=== PATIENT | female | born 1940 | race Caucasian/White ===

== ENCOUNTER 2018-11-28 16:54 | Inpatient (IN) ==
--- NOTE | 2018-11-28 17:51 | ED ---
HPI General Chief complaint: Weakness Stated complaint: Weakness Time Seen by Provider: 11/28/18 16:56 Source: patient, family, EMS and RN notes reviewed Mode of arrival: EMS Limitations: altered mental status History of Present Illness HPI Narrative: 78 year old female presents to the ED via [facility] for c/o malaise and fatigue that started last night. She is in a facility for rehab after a femur and ulnar fracture since 07/2018. She only began ambulating minimally recently. She states she has been falling asleep during conversations and this morning she was given her morning medications and fell asleep with them in her hand. She denies chest pain, abdominal pain or SOB. Denies recent illness. Admits that she felt similar last time she had a UTI. She states she has two bed sores on her buttock. Admits to intermittent sweats and chills. Patient was at the rehab secondary to a fracture that they did not do surgery on. Unclear as to why. She does take blood thinners and has a history of atrial fibrillation. Apparently just recently became more ambulatory She denies any urinary issues but she does have a history of ulcers to her buttocks. She apparently is being worked up for this in the facility. Patient denies any pain. Daughter is at bedside and she provides most of the information. Patient herself is able to provide information but not as well. She does appear to give her eyes closed and appears to be slightly lethargic. Related Data Home Medications Medication Instructions Recorded Confirmed apixaban [Eliquis] 5 mg PO BID 08/09/18 11/28/18 cholecalciferol (vitamin D3) 2,000 unit PO DAILY 08/09/18 11/28/18 [Vitamin D3] doxazosin 4 mg PO BID 08/09/18 11/28/18 folic acid 1 mg PO DAILY 08/09/18 11/28/18 furosemide [Lasix] 20 mg PO DAILY 08/09/18 11/28/18 labetalol 100 mg PO TID 08/09/18 11/28/18 methotrexate sodium 50 mg SUBCUT QWEEK 08/09/18 11/28/18 pantoprazole [Protonix] 40 mg PO DAILY 08/09/18 11/28/18 prednisone 5 mg PO DAILY 08/09/18 11/28/18 rosuvastatin [Crestor] 5 mg PO Q3D 08/09/18 11/28/18 spironolactone [Aldactone] 25 mg PO BID 08/09/18 11/28/18 propafenone 225 mg PO Q8HR 08/12/18 11/28/18 Saccharomyces boulardii 250 mg PO BID 11/28/18 11/28/18 alprazolam [Xanax] 0.5 mg PO HS 11/28/18 11/28/18 baclofen 20 mg PO BID 11/28/18 11/28/18 cyanocobalamin (vitamin B-12) 1,000 mcg IM QMONTH 11/28/18 11/28/18 gabapentin 100 mg PO BID 11/28/18 11/28/18 magnesium hydroxide [Milk of 30 ml PO DAILY PRN 11/28/18 11/28/18 Magnesia] morphine [MS Contin] 15 mg PO Q12H 11/28/18 11/28/18 multivitamin with minerals 1 tab PO DAILY 11/28/18 11/28/18 oxycodone-acetaminophen [Percocet] 1 tab PO TID PRN 11/28/18 11/28/18 pregabalin [Lyrica] 75 mg PO HS 11/28/18 11/28/18 promethazine 12.5 mg PO DAILY PRN 11/28/18 11/28/18 vitamin B complex 1 cap PO DAILY 11/28/18 11/28/18 Allergies Allergy/AdvReac Type Severity Reaction Status Date / Time metoclopramide Allergy Severe Cramping Verified 08/10/18 07:55 of the Muscles penicillin G Allergy Severe Swelling Verified 08/10/18 07:55 tetanus toxoid, adsorbed Allergy Severe Cramping Verified 08/10/18 07:55 of the Muscles cefazolin Allergy Mild ALLERGY Verified 08/10/18 07:55 DOCUMENTED ON 05-07-09 ORDER @ 0030 sucralfate Allergy Unknown Abdominal Verified 08/10/18 07:55 Pain Review of Systems ROS: all other systems reviewed are negative PMFSH History History Provided By: Patient, Family 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, 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 Medical History Medical History Chronic pain (Acute) Hypertension (Acute) Atrial fibrillation (Acute) Chronic kidney disease (Acute) Hyperlipidemia (Acute) Muscle weakness (Acute) Olecranon fracture (Acute) Arthritis (Acute) Gastroparesis (Acute) Hx of hysterectomy (Acute) Surgical History Surgical History History of tonsillectomy (Acute) History of back surgery (Acute) History of cardiac radiofrequency ablation (Acute) Hx of cholecystectomy (Acute) Family History Family History Other Family history non-contributory Social History Social History Substance History: No History of Abuse Second Hand Smoke Exposure: No Smoking Status: Never smoker How Often Do You Have a Drink Containing Alcohol: Never Recent Travel in [facility] within the Last 8 Weeks: No Recent Out of Country Travel within the Last 8 Weeks: No Exam Narrative Exam Narrative: GENERAL: Well-appearing in no distress. SKIN: Focused skin assessment warm/dry. 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 She has about 3 lesions. Bigger one is about 4-5 cm. Less than 5 mms deep. HEAD: Atraumatic. Normocephalic. EYES: Pupils equal and round. No scleral icterus. No injection or drainage. ENT: No nasal bleeding or discharge. Mucous membranes pink and moist. Tongue is midline. No uvula deviation. NECK: Trachea midline. No JVD. CARDIOVASCULAR: Regular rate and rhythm. No murmur appreciated. RESPIRATORY: No accessory muscle use. Clear to auscultation. Breath sounds equal bilaterally. GASTROINTESTINAL: Abdomen soft, non-tender, nondistended. Hepatic and splenic margins not palpable. MUSCULOSKELETAL: No obvious deformities. No clubbing. No cyanosis. No edema. Full range of motion of the upper and lower extremities with exception of the lower extremities but she does have some weakness. NEUROLOGICAL: Awake and alert. No obvious cranial nerve deficits. Motor grossly within normal limits. Normal speech. PSYCHIATRIC: Appropriate mood and affect; insight and judgment normal. Course Initial Documented Vital Signs Temperature 99.0 F 11/28/18 17:11 Pulse Rate 73 11/28/18 17:11 Respiratory Rate 17 11/28/18 17:11 Blood Pressure 97/57 L 11/28/18 17:11 Pulse Oximetry 97 11/28/18 17:11 Last Documented Vital Signs Temperature 99.0 F 11/28/18 17:11 Pulse Rate 88 11/28/18 20:43 Respiratory Rate 15 11/28/18 20:43 Blood Pressure 103/58 L 11/28/18 20:43 Pulse Oximetry 97 11/28/18 21:28 Medical Decision Making AGNIESZKA Attestation AGNIESZKA supervised visit: Yes Attestation: I, Dr. Villar, have reviewed the advance practice practitioner' s documentation and am in agreement, met with the patient face to face, made the diagnosis, and the medical decision making was done by me. *My assessment and Findings: 78-year-old female presents for evaluation of altered mental status. Patient hypotensive on arrival raising concern for sepsis. Laboratory work shows acute renal failure with a creatinine of 1.6. Urinalysis unremarkable. CT head negative for acute findings. Chest x-ray does show a left lower lobe infiltrate. Patient treated for healthcare associated pneumonia as she is currently at inpatient rehab. Patient with allergies to cephalosporins and penicillin. Will treat with Levaquin and aztreonam. Will admit patient to medicine. MDM Narrative Medical decision making narrative: This will cover for hospital-acquired pneumonia.78-year-old female that presents to the ED for evaluation of altered mental status. Patient was properly examined and was found to have signs and symptoms consistent with altered mental status likely from infection. Labs and imaging were ordered. Labs and imaging did showed what appears to be pneumonia as well as appears to be NAVIN. At this time recognitions for admission for further evaluation and treatment. Case discussed with my attending her mother the patient agrees with plan. Patient was given fluids as well as Levaquin and tazobactam as patient is allergic to cephalosporins and penicillin. Patient and family agree with plan. Patient was admitted to the hospital to Dr. Bowden agrees to admission to his service. Medical Screen Exam Complete: Yes Emergency Medical Condition: Yes Differential Diagnosis Differential Diagnosis: Pneumonia versus sepsis versus UTI versus weakness versus CVA versus ACS versus lethargy versus AMS 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s Medical records reviewed: Yes I reviewed the patient's medical records. Lab Data Lab results reviewed: Yes I reviewed the patient's lab results. Result diagrams: 11/28/18 18:46 11/28/18 18:49 Lab Results 11/28/18 11/28/18 11/28/18 Range/Units 18:45 18:45 18:46 WBC 4.3 (4.0-11.0) th/mm3 RBC 2.97 L (4.00-5.30) mil/mm3 Hgb 9.7 L (11.6-15.3) gm/dL Hct 30.2 L (35.0-46.0) % MCV 101.6 H (80.0-100.0) fL MCH 32.8 (27.0-34.0) pg MCHC 32.3 (32.0-36.0) % RDW 22.1 H (11.6-17.2) % Plt Count 247 (150-450) th/mm3 MPV 7.3 (7.0-11.0) fL Neut % (Auto) 92.7 H (16.0-70.0) % Lymph % (Auto) 4.9 L (9.0-44.0) % [place] % (Auto) 1.9 (0.0-8.0) % Eos % (Auto) 0.1 (0.0-4.0) % Baso % (Auto) 0.4 (0.0-2.0) % Neut # (Auto) 4.0 (1.8-7.7) th/mm3 Lymph # (Auto) 0.2 L (1.0-4.8) th/mm3 Marin # (Auto) 0.1 (0.0-0.9) th/mm3 Eos # (Auto) 0.0 (0.0-0.4) th/mm3 Baso # (Auto) 0.0 (0.0-0.2) th/mm3 WBC Differential . Differential Comment Auto diff final PT (9.8-11.6) sec INR Ratio Sodium (136-145) meq/L Potassium (3.5-5.1) meq/L Chloride (98-107) meq/L Carbon Dioxide (21.0-32.0) meq/L Anion Gap (5-15) meq/L BUN (7-18) mg/dL Creatinine (0.50-1.00) mg/dL Estimated GFR (>89) mL/min Random Glucose (74-106) mg/dL Lactic Acid 2.0 (0.4-2.0) mmol/L Calcium (8.5-10.1) mg/dL Magnesium (1.5-2.5) mg/dL Total Bilirubin (0.2-1.0) mg/dL AST (15-37) U/L ALT (10-53) U/L Alkaline Phosphatase (45-117) U/L Total Creatine Kinase (26-192) U/L Troponin I (0.02-0.05) ng/mL Total Protein (6.4-8.2) g/dL Albumin (3.4-5.0) g/dL TSH (0.358-3.740) uIU/mL Urine Color Belén (Yellw/Straw) Urine Clarity Hazy H (Clear) Urine pH 5.0 (5.0-8.5) Ur Specific [place] 1.015 (1.002-1.035) Urine Protein Negative (Neg-Trace) mg/dL Urine Glucose (UA) Negative (Negative) mg/dL Urine Ketones Negative (Negative) mg/dL Urine Occult Blood Negative (Negative) Urine Nitrate Negative (Negative) Urine Bilirubin Negative (Negative) Urine Urobilinogen Less than 2 (Less than 2) mg/dL Ur Leukocyte Esterase Negative (Negative) Urine RBC 3 (0-3) /hpf Urine WBC 2 (0-5) /hpf Ur Squamous Epith Cells <1 (0-5) /hpf Hyaline Casts 14 (0-3) /lpf Urine Mucus Few H (Occasional) /lpf Micro UA Comment Culture not ind Ur Microscopic Review Not Reportable Urine Culture Comments Culture not ind Stl C.difficile DNA Amp (Negative) St C. diff Tox Epid 027 (Negative) 11/28/18 11/28/18 11/28/18 Range/Units 18:46 18:49 18:50 WBC (4.0-11.0) th/mm3 RBC (4.00-5.30) mil/mm3 Hgb (11.6-15.3) gm/dL Hct (35.0-46.0) % MCV (80.0-100.0) fL MCH (27.0-34.0) pg MCHC (32.0-36.0) % RDW (11.6-17.2) % Plt Count (150-450) th/mm3 MPV (7.0-11.0) fL Neut % (Auto) (16.0-70.0) % Lymph % (Auto) (9.0-44.0) % [place] % (Auto) (0.0-8.0) % Eos % (Auto) (0.0-4.0) % Baso % (Auto) (0.0-2.0) % Neut # (Auto) (1.8-7.7) th/mm3 Lymph # (Auto) (1.0-4.8) th/mm3 [place] # (Auto) (0.0-0.9) th/mm3 Eos # (Auto) (0.0-0.4) th/mm3 Baso # (Auto) (0.0-0.2) th/mm3 WBC Differential Differential Comment PT 14.0 H (9.8-11.6) sec INR 1.4 Ratio Sodium 137 (136-145) meq/L Potassium 5.0 (3.5-5.1) meq/L Chloride 105 (98-107) meq/L Carbon Dioxide 24.2 (21.0-32.0) meq/L Anion Gap 8 (5-15) meq/L BUN 37 H (7-18) mg/dL Creatinine 1.65 H (0.50-1.00) mg/dL Estimated GFR 30 L (>89) mL/min Random Glucose 105 (74-106) mg/dL Lactic Acid (0.4-2.0) mmol/L Calcium 8.0 L (8.5-10.1) mg/dL Magnesium 2.3 (1.5-2.5) mg/dL Total Bilirubin 0.5 (0.2-1.0) mg/dL AST 14 L (15-37) U/L ALT 14 (10-53) U/L Alkaline Phosphatase 73 (45-117) U/L Total Creatine Kinase 154 (26-192) U/L Troponin I Less than 0.02 L (0.02-0.05) ng/mL Total Protein 6.1 L (6.4-8.2) g/dL Albumin 2.5 L (3.4-5.0) g/dL TSH 0.794 (0.358-3.740) uIU/mL Urine Color (Yellw/Straw) Urine Clarity (Clear) Urine pH (5.0-8.5) Ur Specific [place] (1.002-1.035) Urine Protein (Neg-Trace) mg/dL Urine Glucose (UA) (Negative) mg/dL Urine Ketones (Negative) mg/dL Urine Occult Blood (Negative) Urine Nitrate (Negative) Urine Bilirubin (Negative) Urine Urobilinogen (Less than 2) mg/dL Ur Leukocyte Esterase (Negative) Urine RBC (0-3) /hpf Urine WBC (0-5) /hpf Ur Squamous Epith Cells (0-5) /hpf Hyaline Casts (0-3) /lpf Urine Mucus (Occasional) /lpf Micro UA Comment Ur Microscopic Review Urine Culture Comments Stl C.difficile DNA Amp Positive H (Negative) St C. diff Tox Epid 027 Positive H (Negative) Imaging Data Attestation: I personally reviewed and interpreted this imaging study as follows : Radiologist's impression: Chest X-Ray 11/28/18 17:21 CONCLUSION: Subsegmental infiltrate in the left lower lung. Head CT 11/28/18 17:30 CONCLUSION: 1. No acute findings in the brain. 2. Opacification or fluid in the sphenoid sinus. . Discharge Plan Discharge Disposition Patient Disposition: ED Admit(ED Internal Use Only) Discharge Order Discharge Orders: ED Use Only Admit Order (Routine); Ordered 11/28/18 Ordered By: Randy Bernabe Discharge Details Diagnosis: Acute alteration in mental status, NAVIN (acute kidney injury), Pneumonia Physicians Team ED Provider: Johanna Villar ED Midlevel Provider: Randy Bernabe Primary Care Provider: UNKNOWN, Attending Provider: Cliff Rodriguez Status ED Status: Left Department Discharge Information Discharge Date/Time: 11/28/18 21:58
--- NOTE | 2018-11-28 17:51 | XR ---
EXAM DATE: 11/28/2018 5:42 PM EST AGE/SEX: 78 years / Female INDICATIONS: Shortness of breath and weakness. CLINICAL DATA: This is the patient's initial encounter. Patient reports that signs and symptoms have been present for 2 days and indicates a pain score of 0/10. MEDICAL/SURGICAL HISTORY: . Arthritis. Gastroparesis. Hypertension. A-fib. . Hysterectomy. Fus ion, lumbar. Cholecystectomy. Cardiac ablation. COMPARISON: [facility] – [place], [place]ST 1V SINGLE AP, 08/10/2018. . FINDINGS: There is a subsegmental oblique opacity in the lower lateral left lung. The right lung is clear. The heart is normal in size. Both hemidiaphragms well delineated. Multiple calcified nodes in the right a xilla stable from prior. CONCLUSION: Subsegmental infiltrate in the left lower lung. Electronically signed by: Jesus Manuel Samaniego MD Board Certified Radiologist 11/28/2018 5:49 PM EST
--- NOTE | 2018-11-28 17:58 | CT ---
EXAM DATE: 11/28/2018 5:46 PM EST AGE/SEX: 78 years / Female INDICATIONS: Weakness and altered mental status. CLINICAL DATA: This is the patient's initial encounter. Patient reports that signs and symptoms have been present for 1 day and indicates a pain score of 0/10. MEDICAL/SURGICAL HISTORY: Hypertension. Afib, Chronic kidney disease. Hysterectomy. RADIATION DOSE: 34.63 CTDI (mGy) COMPARISON: [facility], MR BRAIN W AND W/O CONTRAST, 06/14/2018. . TECHNIQUE: CT of the head without contrast. Using automated exposure control and adjustment of the mA and/or kV according to patient size, radiation dose was kept as low as reasonably achievable to ob tain optimal diagnostic quality images. DICOM format image data is available electronically for revi ew and comparison. FINDINGS: Cerebrum: The ventricles are normal for age. No evidence of midline shift, mass lesion, hemorrhage or acute infarction. No extraaxial fluid collections are seen. Posterior Fossa: The cerebellum and brainstem are intact. The 4th ventricle is midline. The cerebe llopontine angle is unremarkable. Extracranial: The visualized portion of the orbits is intact. Opacified or air-fluid level in the sp henoid sinus Skull: The calvaria is intact. No evidence of skull fracture. CONCLUSION: 1. No acute findings in the brain. 2. Opacification or fluid in the sphenoid sinus. . Electronically signed by: Jesus Manuel Samaniego MD Board Certified Radiologist 11/28/2018 5:56 PM EST
[2018-11-28] MEDS ORDERED: Sodium Chlor 0.9% Inj 500 ML IV.SIG SCH ×2 (18:00)
[2018-11-28 19:11] LABS: Baso % (Auto) 0.4 % (0.0-2.0); Eos % (Auto) 0.1 % (0.0-4.0); Hematocrit 30.2 % (35.0-46.0); Hemoglobin 9.7 gm/dL (11.6-15.3); Lymph # (Auto) 0.2 th/mm3 (1.0-4.8); Lymph % (Auto) 4.9 % (9.0-44.0); Mean Corpuscular HGB Conc 32.3 % (32.0-36.0); Mean Corpuscular Hemoglobin 32.8 pg (27.0-34.0); Mean Corpuscular Volume 101.6 fL (80.0-100.0); Mean Platelet Volume 7.3 fL (7.0-11.0); Mono # (Auto) 0.1 th/mm3 (0.0-0.9); Mono % (Auto) 1.9 % (0.0-8.0); Neut % (Auto) 92.7 % (16.0-70.0); Platelet Count 247 th/mm3 (150-450); Red Blood Count 2.97 mil/mm3 (4.00-5.30); Red Cell Distribution Width 22.1 % (11.6-17.2); White Blood Count 4.3 th/mm3 (4.0-11.0)
[2018-11-28 19:14] LABS: Bilirubin,Urine Negative (Negative); Clarity,Urine Hazy (Clear); Color,Urine Amber (Yellw/Straw); Glucose,Urine (UA) Negative (Negative); Hyaline Casts,Urine 14 /lpf (0-3); Leukocyte Esterase,Urine Negative (Negative); Mucus,Urine Few /lpf (Occasional); Nitrite,Urine Negative (Negative); Specific Gravity,Urine 1.015 (1.002-1.035); Squamous Epithelial Cell,Urine <1 /hpf (0-5)
[2018-11-28 19:15] LABS: INR 1.4 Ratio
[2018-11-28 19:47] LABS: Alanine Aminotransferase 14 U/L (10-53); Albumin 2.5 g/dL (3.4-5.0); Anion Gap 8 meq/L (5-15); Aspartate Aminotransferase 14 U/L (15-37); Blood Urea Nitrogen 37 mg/dL (7-18); Carbon Dioxide 24.2 meq/L (21.0-32.0); Chloride 105 meq/L (98-107); Glomerular Filtration Rate 30 mL/min (>89); Glucose,Random 105 mg/dL (74-106); Magnesium 2.3 mg/dL (1.5-2.5); Sodium 137 meq/L (136-145)
[2018-11-28] MEDS ORDERED: Aztreonam Inj 2 GM in Sodium Chloride 0.9% Inj 100 ML IV.SIG STA (19:47)
--- NOTE | 2018-11-28 19:51 | P.HP ---
History of Present Illness Service: [facility] Adult med Primary Care Physician: UNKNOWN Chief Complaint: AMS, malaise History of Present Illness: 78 year old female presents to the ED via [facility] for c/o malaise and fatigue that started last night. She has been residing in a nursing facility for rehab after a femur and ulnar fracture since 07/2018. She only began ambulating minimally recently. She states she has been falling asleep during conversations and this morning she was given her morning medications and fell asleep with them in her hand. Her daughter who is at bedside reports that patient's blood pressure was quite low at the facility, reported as 82/57 earlier today. Patient's roommate has been coughing a lot but the patient has not been coughing. Patient is not been eating much over the last 2 days. She has had no vomiting. Denies any diarrhea but did have one episode of loose stool while here in the ER tonight. She denies chest pain, abdominal pain or SOB. Admits that she felt similar last time she had a UTI. She states she has two bed sores on her buttock and wound care at the facility was reportedly consulted within the last day or so. Admits to intermittent sweats and chills today. She has been given IV fluids and IV antibiotics have been initiated here due to concerns for possible sepsis as chest x-ray revealed pneumonia and the patient's blood pressure was systolically in the 90s. Her systolic blood pressure on my exam was 101 with a heart rate in the 80s. Patient reports she is feeling better and stronger now. Patient is much more responsive now per her own report and per her daughter's report. - Diagnosis (1) Pneumonia (2) Acute alteration in mental status (3) NAVIN (acute kidney injury) (4) Anemia (5) Pressure ulcer (6) Hypertension (7) Atrial fibrillation Review of Systems Constitutional: Reports anorexia, Reports daytime sleepiness, Reports fatigue, Reports lack of energy, Reports malaise, Reports weakness, Denies body ache(s), Denies chills, Denies excessive sweating, Denies fever(s), Denies headache(s), Denies increased appetite, Denies night sweats, Denies weight gain, Denies weight loss, Denies other Eyes: Denies blind spots, Denies blurry vision, Denies bulging eyes, Denies change in vision, Denies double vision, Denies discharge, Denies dry eyes, Denies floaters, Denies irritation, Denies itchy eyes, Denies loss of vision, Denies pain, Denies requires corrective lenses, Denies sensitivity to light, Denies other Ears, Nose, Mouth, and Throat: Reports abnormal hearing Cardiovascular: Denies chest pain, Denies chest pain at rest, Denies chest pain with activity, Denies excessive sweating, Denies fainting, Denies fast heart rate, Denies foot swelling, Denies generalized swelling, Denies irregular heart rhythm, Denies leg pain with activity, Denies leg sores, Denies leg swelling, Denies lightheadedness, Denies radiating jaw, neck or arm pain, Denies rapid, pounding, or irregular heartbeat, Denies shortness of breath, Denies shortness of breath with activity, Denies shortness of breath when lying down, Denies shortness of breath causing sudden awakening, Denies slow heart rate, Denies other Respiratory: Denies change in phlegm color, Denies chest congestion, Denies cough, Denies coughing up blood, Denies excessive phlegm production, Denies pain on inspiration, Denies pain with cough, Denies shortness of breath, Denies shortness of breath with activity, Denies snoring, Denies stridor, Denies wheezing, Denies other Gastrointestinal: Denies abdominal pain, Denies belching, Denies black, tarry stools, Denies bloating, Denies bright, red blood in stools, Denies change in bowel habits, Denies constant urge to pass stool, Denies change in stools, Denies coffee ground vomit, Denies constipation, Denies cramping, Denies difficulty swallowing, Denies excessive passing of gas, Denies feeling full early, Denies heartburn, Denies incontinent of stools, Denies loose stools, Denies nausea, Denies pain with swallowing, Denies vomiting, Denies vomiting blood, Denies other Musculoskeletal: Reports abnormal walking, Reports joint pain Skin/Breast: Reports change in skin color, Reports rash, Reports wounds Neurologic: Reports abnormal hearing, Reports dizziness, Reports unsteadiness, Reports weakness Psychiatric: Reports abnormal sleep pattern Hematologic/Lymphatic: Reports easy bruising PMFSH - History History Provided By: 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, Airfield Manager / EMT - Medical History Medical History: Medical History (Last Updated 11/28/18 @ 20:43 by Dereje Bowden MD, PhD) Chronic pain (Acute) Hypertension (Acute) Atrial fibrillation (Acute) Chronic kidney disease Hyperlipidemia Muscle weakness Olecranon fracture Arthritis Gastroparesis Hx of hysterectomy - Surgical History Surgical History: Surgical History (Last Updated 11/28/18 @ 20:39 by Dereje Bowden MD, PhD) History of tonsillectomy History of back surgery History of cardiac radiofrequency ablation Hx of cholecystectomy - Family History Family History: Family History (Last Reviewed 11/28/18 @ 19:52 by BECCA Mina) Other Family history non-contributory - Social History I have reviewed the patient's Social History: Yes - Tobacco History Second Hand Smoke Exposure: No Smoking Status: Never smoker - Alcohol History How Often Do You Have a Drink Containing Alcohol: Never - Substance Use History Substance History: No History of Abuse - Travel History Recent Travel in the [place] Within the Last 8 Weeks: No Recent Travel Out of the Country Within the Last 8 Weeks: No - Immunization History Tetanus Immunization: <5 Years Medications and Allergies Active Medications: Active Medications Aztreonam 2 gm/ Sodium (Chloride) 100 mls @ 200 mls/hr IV.SIG STAT STA Stop: 11/28/18 20:16 Levofloxacin/Dextrose (Levaquin 750 Mg Premix Inj) 150 mls @ 100 mls/hr IV.SIG STAT STA Stop: 11/28/18 21:16 Allergies Allergy/AdvReac Type Severity Reaction Status Date / Time metoclopramide Allergy Severe Cramping Verified 08/10/18 07:55 of the Muscles penicillin G Allergy Severe Swelling Verified 08/10/18 07:55 tetanus toxoid, adsorbed Allergy Severe Cramping Verified 08/10/18 07:55 of the Muscles cefazolin Allergy Mild ALLERGY Verified 08/10/18 07:55 DOCUMENTED ON 05-07-09 ORDER @ 0030 sucralfate Allergy Unknown Abdominal Verified 08/10/18 07:55 Pain Home Medications Medication Instructions Recorded Confirmed Type apixaban [Eliquis] 5 mg PO BID 08/09/18 11/28/18 History cholecalciferol (vitamin D3) 2,000 unit PO DAILY 08/09/18 11/28/18 History [Vitamin D3] doxazosin 4 mg PO BID 08/09/18 11/28/18 History folic acid 1 mg PO DAILY 08/09/18 11/28/18 History furosemide [Lasix] 20 mg PO DAILY 08/09/18 11/28/18 History labetalol 100 mg PO TID 08/09/18 11/28/18 History methotrexate sodium 50 mg SUBCUT QWEEK 08/09/18 11/28/18 History pantoprazole [Protonix] 40 mg PO DAILY 08/09/18 11/28/18 History prednisone 5 mg PO DAILY 08/09/18 11/28/18 History rosuvastatin [Crestor] 5 mg PO Q3D 08/09/18 11/28/18 History spironolactone [Aldactone] 25 mg PO BID 08/09/18 11/28/18 History propafenone 225 mg PO Q8HR 08/12/18 11/28/18 History Saccharomyces boulardii 250 mg PO BID 11/28/18 11/28/18 History alprazolam [Xanax] 0.5 mg PO HS 11/28/18 11/28/18 History baclofen 20 mg PO BID 11/28/18 11/28/18 History cyanocobalamin (vitamin B-12) 1,000 mcg IM QMONTH 11/28/18 11/28/18 History gabapentin 100 mg PO BID 11/28/18 11/28/18 History magnesium hydroxide [Milk of 30 ml PO DAILY PRN 11/28/18 11/28/18 History Magnesia] morphine [MS Contin] 15 mg PO Q12H 11/28/18 11/28/18 History multivitamin with minerals 1 tab PO DAILY 11/28/18 11/28/18 History oxycodone-acetaminophen [Percocet] 1 tab PO TID PRN 11/28/18 11/28/18 History pregabalin [Lyrica] 75 mg PO HS 11/28/18 11/28/18 History promethazine 12.5 mg PO DAILY PRN 11/28/18 11/28/18 History vitamin B complex 1 cap PO DAILY 11/28/18 11/28/18 History Exam Vital signs: Vital Signs 11/28/18 17:11 11/28/18 17:21 Temperature 99.0 F Pulse Rate 73 73 Respiratory Rate 17 Blood Pressure 97/57 L Pulse Oximetry 97 97 Intake & Output 11/28/18 11/28/18 11/29/18 06:59 18:59 06:59 Weight 127.006 kg Narrative: GENERAL: No acute distress, sleeping, arouses to voice. Alert and oriented. Cooperative with exam. SKIN: Warm and dry. Stage II ulcerations bilateral buttocks approximately 3 lesions per discussion with PA provider. Small pustular lesion right forearm approximately 8 mm HEAD: Atraumatic. Normocephalic. EYES: Pupils equal and round. No scleral icterus. No injection or drainage. ENT: No nasal bleeding or discharge. Mucous membranes pink and moist. NECK: Trachea midline. No JVD. CARDIOVASCULAR: Regular rate and rhythm. Distant heart sounds. No significant murmur appreciated. RESPIRATORY: No accessory muscle use. Clear to auscultation. Breath sounds equal bilaterally, but decreased at the bases. GASTROINTESTINAL: Abdomen soft, non-tender, mildly distended. Hepatic and splenic margins not palpable. Bowel sounds normal. MUSCULOSKELETAL: Extremities without clubbing, cyanosis, or edema. No obvious deformities. NEUROLOGICAL: Awake and alert. No obvious cranial nerve deficits. Motor grossly within normal limits. Five out of 5 muscle strength in the arms and legs. Normal speech. PSYCHIATRIC: Appropriate mood and affect; insight and judgment normal. Results - Labs CBC & Chem 7: 11/28/18 18:46 11/28/18 18:49 Labs: Laboratory Results - last 24 hr 11/28/18 11/28/18 11/28/18 18:45 18:45 18:46 WBC 4.3 RBC 2.97 L Hgb 9.7 L Hct 30.2 L MCV 101.6 H MCH 32.8 MCHC 32.3 RDW 22.1 H Plt Count 247 MPV 7.3 Neut % (Auto) 92.7 H Lymph % (Auto) 4.9 L [place] % (Auto) 1.9 Eos % (Auto) 0.1 Baso % (Auto) 0.4 Neut # (Auto) 4.0 Lymph # (Auto) 0.2 L [place] # (Auto) 0.1 Eos # (Auto) 0.0 Baso # (Auto) 0.0 WBC Differential . Differential Comment Auto diff final PT INR Sodium Potassium Chloride Carbon Dioxide Anion Gap BUN Creatinine Estimated GFR Random Glucose Lactic Acid 2.0 Calcium Magnesium AST ALT Albumin Urine Color Belén Urine Clarity Hazy H Urine pH 5.0 Ur Specific [place] 1.015 Urine Protein Negative Urine Glucose (UA) Negative Urine Ketones Negative Urine Occult Blood Negative Urine Nitrate Negative Urine Bilirubin Negative Urine Urobilinogen Less than 2 Ur Leukocyte Esterase Negative Urine RBC 3 Urine WBC 2 Ur Squamous Epith Cells <1 Hyaline Casts 14 Urine Mucus Few H Micro UA Comment Culture not ind Ur Microscopic Review Not Reportable Urine Culture Comments Culture not ind 11/28/18 11/28/18 18:46 18:49 WBC RBC Hgb Hct MCV MCH MCHC RDW Plt Count MPV Neut % (Auto) Lymph % (Auto) [place] % (Auto) Eos % (Auto) Baso % (Auto) Neut # (Auto) Lymph # (Auto) [place] # (Auto) Eos # (Auto) Baso # (Auto) WBC Differential Differential Comment PT 14.0 H INR 1.4 Sodium 137 Potassium 5.0 Chloride 105 Carbon Dioxide 24.2 Anion Gap 8 BUN 37 H Creatinine 1.65 H Estimated GFR 30 L Random Glucose 105 Lactic Acid Calcium 8.0 L Magnesium 2.3 AST 14 L ALT 14 Albumin 2.5 L Urine Color Urine Clarity Urine pH Ur Specific [place] Urine Protein Urine Glucose (UA) Urine Ketones Urine Occult Blood Urine Nitrate Urine Bilirubin Urine Urobilinogen Ur Leukocyte Esterase Urine RBC Urine WBC Ur Squamous Epith Cells Hyaline Casts Urine Mucus Micro UA Comment Ur Microscopic Review Urine Culture Comments - Imaging Impressions Chest X-Ray 11/28/18 17:21 CONCLUSION: Subsegmental infiltrate in the left lower lung. Head CT 11/28/18 17:30 CONCLUSION: 1. No acute findings in the brain. 2. Opacification or fluid in the sphenoid sinus. . Caprini VTE Risk Assessment Caprini VTE Risk Assessment: Moderate/High Risk (score >= 2) Caprini Risk Assessment Model: Point Value = 1 Point Value = 2 Point Value = 3 Point Value = 5 Age 41-60 Minor surgery BMI > 25 kg/m2 Swollen legs Varicose veins or History of unexplained or recurrent spontaneous Oral contraceptives or hormone replacement Sepsis (< 1 month) Serious lung disease, including pneumonia (< 1 month) Abnormal pulmonary function Acute myocardial infarction Congestive heart failure (< 1 month) History of inflammatory bowel disease Medical patient at bed rest Age 61-74 Arthroscopic surgery Major open surgery (> 45 min) Laparoscopic surgery (> 45 min) Malignancy Confined to bed (> 72 hours) Immobilizing plaster cast Central venous access Age >= 75 History of VTE Family history of VTE Factor V Leiden Prothrombin [id number] Lupus anticoagulant Anticardiolipin antibodies Elevated serum homocysteine Heparin-induced thrombocytopenia Other congenital or acquired thrombophilia Stroke (< 1 month) Elective arthroplasty Hip, pelvis, or leg fracture Acute spinal cord injury (< 1 month) Prophylaxis Regimen: Total Risk Factor Score Risk Level Prophylaxis Regimen 0-1 Low Early ambulation 2 Moderate Order ONE of the following: *Sequential Compression Device (SCD) *Heparin 5000 units SQ BID 3-4 Higher Order ONE of the following medications: *Heparin 5000 units SQ TID *Enoxaparin/Lovenox 40 mg SQ daily (WT < 150 kg, CrCl > 30 mL/min) *Enoxaparin/Lovenox 30 mg SQ daily (WT < 150 kg, CrCl > 10-29 mL/min) *Enoxaparin/Lovenox 30 mg SQ BID (WT < 150 kg, CrCl > 30 mL/min) AND/OR *Sequential Compression Device (SCD) 5 or more Highest Order ONE of the following medications: *Heparin 5000 units SQ TID (Preferred with Epidurals) *Enoxaparin/Lovenox 40 mg SQ daily (WT < 150 kg, CrCl > 30 mL/min) *Enoxaparin/Lovenox 30 mg SQ daily (WT < 150 kg, CrCl > 10-29 mL/min) *Enoxaparin/Lovenox 30 mg SQ BID (WT < 150 kg, CrCl > 30 mL/min) AND *Sequential Compression Device (SCD) Assessment and Plan - Assessment (1) Pneumonia Code(s): J18.9 - Pneumonia, unspecified organism Status: Acute Plan: We will treat as HCAP given that she has been in a rehab facility for the last few months. She has allergies/sensitivities to multiple antibiotics. (2) Acute alteration in mental status Code(s): R41.82 - Altered mental status, unspecified Status: Acute Plan: Likely due to sepsis with underlying dehydration. Improving with IVF. (3) NAVIN (acute kidney injury) Code(s): N17.9 - Acute kidney failure, unspecified Status: Acute Plan: Has not been eating/drinking much last few days. Will provide IVF and follow GFR. (4) Anemia Code(s): D64.9 - Anemia, unspecified Status: Acute Plan: chronic and relatively stable. Likely due to chronic illness. Follow. (5) Pressure ulcer Code(s): L89.90 - Pressure ulcer of unspecified site, unspecified stage Status : Acute Plan: will offset pressure, have wound care see pt. (6) Hypertension Code(s): I10 - Essential (primary) hypertension Status: Acute Plan: hold meds. (7) Atrial fibrillation Code(s): I48.91 - Unspecified atrial fibrillation Status: Acute Plan: has been on Eliquis in the past. Rate controlled. - Plan Code Status: full Discussed Condition With: Pt, her daughter and ER provider. (1) Pneumonia Qualifiers: Pneumonia type: due to unspecified organism Laterality: left Lung location: lower lobe of lung Qualified Code(s): J18.1 - Lobar pneumonia, unspecified organism (5) Pressure ulcer Qualifiers: Pressure injury location: buttock Pressure injury stage: stage 2
[2018-11-28 19:57] LABS: Alkaline Phosphatase 73 U/L (45-117); Creatine Kinase 154 U/L (26-192); Thyroid Stimulating Hormone 0.794 uIU/mL (0.358-3.740); Total Protein 6.1 g/dL (6.4-8.2)
[2018-11-28] MEDS ORDERED: Sod Chloride 0.9% Inj 1,000 ML IV.CONT SCH (21:00)
[2018-11-28] MEDS ORDERED: SACCHAROMYCES BOULARDII 250 MG PO SCH (21:00)
[2018-11-28] MEDS ORDERED: levoFLOXacin 750 MG Tablet PO SCH (22:00)
[2018-11-28] MEDS: Propafenone 150 MG Tablet PO SCH (23:12)
[2018-11-29] MEDS: Propafenone 150 MG Tablet PO SCH ×3 (06:08→21:54)
[2018-11-29 06:26] LABS: Baso % (Auto) 0.6 % (0.0-2.0); Eos % (Auto) 1.2 % (0.0-4.0); Hematocrit 25.9 % (35.0-46.0); Hemoglobin 8.5 gm/dL (11.6-15.3); Lymph # (Auto) 0.2 th/mm3 (1.0-4.8); Lymph % (Auto) 10.5 % (9.0-44.0); Mean Corpuscular HGB Conc 32.9 % (32.0-36.0); Mean Corpuscular Hemoglobin 32.5 pg (27.0-34.0); Mean Platelet Volume 7.3 fL (7.0-11.0); Mono # (Auto) 0.1 th/mm3 (0.0-0.9); Mono % (Auto) 2.5 % (0.0-8.0); Neut # (Auto) 1.8 th/mm3 (1.8-7.7); Neut % (Auto) 85.2 % (16.0-70.0); Platelet Count 222 th/mm3 (150-450); Red Blood Count 2.62 mil/mm3 (4.00-5.30); Red Cell Distribution Width 22.7 % (11.6-17.2); White Blood Count 2.1 th/mm3 (4.0-11.0)
[2018-11-29 06:52] LABS: Calcium 7.6 mg/dL (8.5-10.1); Carbon Dioxide 22.6 meq/L (21.0-32.0); Potassium 4.2 meq/L (3.5-5.1)
[2018-11-29] MEDS: Folic Acid 1 MG Tablet PO SCH (08:36)
[2018-11-29] MEDS: predniSONE 5 MG Tablet PO SCH (08:36)
[2018-11-29] MEDS: Gabapentin 100 MG Capsule PO SCH ×3 (08:36→20:39)
--- NOTE | 2018-11-29 14:28 | P.PNIM ---
Subjective Interval history: Patient resting in bed seen with daughter at bedside Patient c/o poor appetite and intermitted nausea Physical Exam Vital signs: Last Vital Signs Temp 98.0 F 11/29/18 12:00 Pulse 79 11/29/18 12:00 Resp 19 11/29/18 12:00 BP 110/59 L 11/29/18 12:00 Pulse Ox 97 11/29/18 12:00 Narrative: GENERAL: This is a, well-developed 78 year old female, in no apparent distress. SKIN: large unstable ulceration bilateral buttock CARDIOVASCULAR: Regular rate and rhythm RESPIRATORY: Clear to auscultation. Breath sounds equal bilaterally. GASTROINTESTINAL: Abdomen soft, non-tender, nondistended. Normal active bowel sounds MUSCULOSKELETAL: Extremities without clubbing, cyanosis, or edema. NEURO: Alert & Oriented. Moves all ext x4 Results Labs CBC & Chem 7: 12/04/18 05:35 12/04/18 05:35 Assessment and Plan Assessment (1) Pneumonia: Code(s): J18.9 - Pneumonia, unspecified organism Status: Acute (2) Acute alteration in mental status: Code(s): R41.82 - Altered mental status, unspecified Status: Acute (3) NAVIN (acute kidney injury): Code(s): N17.9 - Acute kidney failure, unspecified Status: Acute (4) Anemia: Code(s): D64.9 - Anemia, unspecified Status: Acute (5) Pressure ulcer: Code(s): L89.90 - Pressure ulcer of unspecified site, unspecified stage Status: Acute (6) Hypertension: Code(s): I10 - Essential (primary) hypertension Status: Acute (7) Atrial fibrillation: Code(s): I48.91 - Unspecified atrial fibrillation Status: Acute Plan This is a 77-year-old female patient with past medical history which includes atrial fibrillation, CKD stage 3, colitis, degenerative disc disease, GERD, hiatal hernia, hypertension, hyperlipidemia, inflammatory polyarthropathy and TIA. In 07/2018 patient fell at home fracturing right femur and Left olecranon s/p repair. Patient has been residing in SNF since 07/2018. C diff Patient presented to the ER due to AMS, lack of appetite and loose stools In talking to patient and her daughter, patient had C diff and completed PO Flagyl 1 week ago. The diarrhea started again Monday 11/27. C -diff positive Stop current Abx (aztreonam and Levaquin) Start Vancomycin 125 mg PO QID Acute alteration in mental status - improving Likely due to sepsis with underlying dehydration. Improving with IVF. NAVIN (acute kidney injury) on CKD stage 3 Has not been eating/drinking much for the last few days. On admission BUN 37, creatintine 1.65 and GFR 30 recheck 11/29 BUN 32, creatinine 1.01 and GFR 53 Continue IVF Anemia chronic and relatively stable. Likely due to chronic illness. Follow. Pressure ulcer, large will offset pressure Consult wound care request specialty mattress Hypertension patient hypotensive - hold meds. Atrial fibrillation- rate controlled continue Eliquis in the past recheck CBC and BMP in AM Attending Attestation The exam, history, and the medical decision-making described in the above note were completed with the assistance of the mid-level provider. I reviewed and agree with the findings presented. I attest that I had a [id number] encounter with the patient on the same day, and personally performed and documented my assessment and findings in the medical record. Patient examined. Assessment and plan formulated with Abby Gay PA-C. I agree with the above. Progress Note: Quality VTE Deep Vein Thrombosis/Pulmonary Embolism Present on Admission: No _ (1) Anemia Qualifiers: Anemia type: Bone marrow failure anemia type: Chronic kidney disease stage : Folate deficiency anemia type: Hemolytic anemia type: Iron deficiency anemia type: Other causes of anemia: Vitamin B12 deficiency anemia type: (2) Atrial fibrillation Qualifiers: Atrial fibrillation type: (3) Pressure ulcer Qualifiers: Laterality: Pressure injury location: buttock Pressure injury stage: stage 2 (4) Hypertension Qualifiers: Hypertension type: (5) Pneumonia Qualifiers: Aspiration pneumonia type: Laterality: left Lung location: lower lobe of lung Pneumonia type: due to unspecified organism Qualified Code(s): J18.1 - Lobar pneumonia, unspecified organism
[2018-11-29] MEDS: Sod Chloride 0.9% Inj 1,000 ML IV.CONT SCH ×2 (17:00→21:58)
[2018-11-29] MEDS: Pregabalin 75 MG Capsule PO SCH ×2 (19:33→20:39)
[2018-11-29] MEDS: ALPRAZolam 0.5 MG Tablet PO SCH ×2 (19:33→20:40)
--- NOTE | 2018-11-29 20:32 | ECG ---
Date Performed: 11/28/2018 Time Performed: 18:09:00 PTAGE: 78 years EKG: Sinus rhythm WITH FIRST DEGREE AV BLOCK PATTERN CONSISTENT WITH PULMONARY DISEASE INFERIOR MYOCARDIAL INFARCTION ABNORMAL ECG PREVIOUS TRACING : 10/09/2013 10.17 Since the previous tracing, no significant change noted DOCTOR: Armaan Tai Interpretating Date/Time 11/29/2018 20:31:54
[2018-11-29] MEDS ORDERED: Vancomycin Inj 1,250 MG in Sodium Chlor 0.9% Inj 250 ML IV.SIG ONE (20:43)
[2018-11-29] MEDS ORDERED: levoFLOXacin 750 MG Tablet PO SCH (21:00)
[2018-11-30] MEDS: Sod Chloride 0.9% Inj 1,000 ML IV.CONT SCH ×2 (05:13→15:46)
[2018-11-30] MEDS: Propafenone 150 MG Tablet PO SCH ×4 (06:27→21:19)
[2018-11-30] MEDS: Gabapentin 100 MG Capsule PO SCH ×2 (08:25→20:17)
[2018-11-30] MEDS: predniSONE 5 MG Tablet PO SCH (08:25)
[2018-11-30] MEDS: Folic Acid 1 MG Tablet PO SCH (08:26)
--- NOTE | 2018-11-30 10:42 | P.PNIM ---
Subjective Interval history: Patient reports that she has had approximately 10 BMs through the night patient also c/o difficulty swallowing her pills, feels like the pills get stuck Physical Exam Vital signs: Last Vital Signs Temp 98.1 F 11/30/18 08:00 Pulse 87 11/30/18 08:00 Resp 16 11/30/18 08:00 BP 121/56 L 11/30/18 08:00 Pulse Ox 96 11/30/18 08:00 Narrative: GENERAL: This is a, well-developed 78 year old female, in no apparent distress. SKIN: large unstable ulceration bilateral buttock CARDIOVASCULAR: Regular rate and rhythm RESPIRATORY: Clear to auscultation. Breath sounds equal bilaterally. GASTROINTESTINAL: Abdomen soft, non-tender, nondistended. Normal active bowel sounds MUSCULOSKELETAL: Extremities without clubbing, cyanosis, or edema. NEURO: Alert & Oriented. Moves all ext x4 Results Labs CBC & Chem 7: 12/04/18 05:35 12/04/18 05:35 Assessment and Plan Assessment (1) Pneumonia: Code(s): J18.9 - Pneumonia, unspecified organism Status: Acute (2) Acute alteration in mental status: Code(s): R41.82 - Altered mental status, unspecified Status: Acute (3) NAVIN (acute kidney injury): Code(s): N17.9 - Acute kidney failure, unspecified Status: Acute (4) Anemia: Code(s): D64.9 - Anemia, unspecified Status: Acute (5) Pressure ulcer: Code(s): L89.90 - Pressure ulcer of unspecified site, unspecified stage Status: Acute (6) Hypertension: Code(s): I10 - Essential (primary) hypertension Status: Acute (7) Atrial fibrillation: Code(s): I48.91 - Unspecified atrial fibrillation Status: Acute Plan This is a 77-year-old female patient with past medical history which includes atrial fibrillation, CKD stage 3, colitis, degenerative disc disease, GERD, hiatal hernia, hypertension, hyperlipidemia, inflammatory polyarthropathy and TIA. In 07/2018 patient fell at home fracturing right femur and Left olecranon s/p repair. Patient has been residing in SNF since fall 07/2018. C diff Patient presented to the ER due to AMS, lack of appetite and loose stools In talking to patient and her daughter, patient had C diff and completed PO Flagyl 1 week ago. The diarrhea started again Monday 11/27. C -diff positive 027 positive Stop current Abx (aztreonam and Levaquin) Start Vancomycin 125 mg PO QID difficult swallowing ? esophageal stenosis Consult to GI Patient reports that she has seen Dr. Freed in the past and has had esophageal dilations in the past Acute alteration in mental status - improving Likely due to sepsis with underlying dehydration. Improving with IVF. NAVIN (acute kidney injury) on CKD stage 3 Has not been eating/drinking much for the last few days. On admission BUN 37, creatintine 1.65 and GFR 30 recheck 11/29 BUN 32, creatinine 1.01 and GFR 53 Continue IVF recheck CBC. BMP and Mag in AM Anemia chronic and relatively stable. Likely due to chronic illness. Follow. Pressure ulcer, large will offset pressure Consult wound care request specialty mattress Hypertension patient hypotensive - hold meds. Atrial fibrillation- rate controlled continue Eliquis in the past recheck CBC and BMP in AM Attending Attestation The exam, history, and the medical decision-making described in the above note were completed with the assistance of the mid-level provider. I reviewed and agree with the findings presented. I attest that I had a [id number] encounter with the patient on the same day, and personally performed and documented my assessment and findings in the medical record. Patient examined. Assessment and plan formulated with Abby Gay PA-C. I agree with the above. buttock wound --> MRSA blood culutre --> staphylococcus, awaiting finalization - start IV vancomycin - consult Infectious Disease - consult Pallliative Care Progress Note: Quality VTE Deep Vein Thrombosis/Pulmonary Embolism Present on Admission: No _ (1) Anemia Qualifiers: Anemia type: Bone marrow failure anemia type: Chronic kidney disease stage : Folate deficiency anemia type: Hemolytic anemia type: Iron deficiency anemia type: Other causes of anemia: Vitamin B12 deficiency anemia type: (2) Atrial fibrillation Qualifiers: Atrial fibrillation type: (3) Pressure ulcer Qualifiers: Laterality: Pressure injury location: buttock Pressure injury stage: stage 2 (4) Hypertension Qualifiers: Hypertension type: (5) Pneumonia Qualifiers: Aspiration pneumonia type: Laterality: left Lung location: lower lobe of lung Pneumonia type: due to unspecified organism Qualified Code(s): J18.1 - Lobar pneumonia, unspecified organism
[2018-11-30 12:58] LABS: Baso % (Auto) 0.3 % (0.0-2.0); Eos % (Auto) 0.8 % (0.0-4.0); Hematocrit 27.6 % (35.0-46.0); Hemoglobin 8.9 gm/dL (11.6-15.3); Lymph # (Auto) 0.1 th/mm3 (1.0-4.8); Lymph % (Auto) 8.7 % (9.0-44.0); Mean Corpuscular HGB Conc 32.4 % (32.0-36.0); Mean Corpuscular Hemoglobin 32.8 pg (27.0-34.0); Mean Corpuscular Volume 101.4 fL (80.0-100.0); Mean Platelet Volume 7.3 fL (7.0-11.0); Mono % (Auto) 1.7 % (0.0-8.0); Neut # (Auto) 1.2 th/mm3 (1.8-7.7); Neut % (Auto) 88.5 % (16.0-70.0); Platelet Count 266 th/mm3 (150-450); Red Blood Count 2.72 mil/mm3 (4.00-5.30); Red Cell Distribution Width 22.6 % (11.6-17.2); White Blood Count 1.4 th/mm3 (4.0-11.0)
[2018-11-30 13:13] LABS: Anion Gap 8 meq/L (5-15); Blood Urea Nitrogen 13 mg/dL (7-18); Calcium 7.5 mg/dL (8.5-10.1); Carbon Dioxide 21.5 meq/L (21.0-32.0); Chloride 112 meq/L (98-107); Glomerular Filtration Rate Greater Than 89 mL/min (>89); Glucose,Random 104 mg/dL (74-106); Potassium 3.9 meq/L (3.5-5.1); Sodium 141 meq/L (136-145)
[2018-11-30 13:56] LABS: Lymphocytes 5 % (9-44); Monocytes 1 % (0-8)
[2018-11-30 13:57] LABS: Ovalocytes 1+; Platelet Estimate Normal (Normal); Platelet Morphology Normal (Normal)
--- NOTE | 2018-11-30 14:15 | P.CONGI ---
History of Present Illness Consult date: 11/30/18 Consult reason: Difficulty swallowing Chief complaint: Acute Pneumonia, AMS History of Present Illness: Patient is a pleasant 78-year-old female with past medical history significant for arthritis, atrial fibrillation, chronic kidney disease, chronic pain, gastroparesis, hyperlipidemia and hypertension. Surgical history significant for spinal fusion in 2008, cardiac ablation, tonsillectomy and cholecystectomy. Patient also has tested positive for C. difficile toxin on 11/28/2018. Patient presented to [facility] emergency room from a [facility] facility where she is undergoing rehab post femur and ulna fracture in July 2018. Patient reports decreased appetite over the last week states some nausea but denies any vomiting. Patient denies abdominal pain fever or chills. Upon consultation, patient endorses that she gets occasional heartburn and has a sensation of pills getting stuck in her throat. Patient also states that she experiences gagging and has had these symptoms over the last few months. Patient denies odynophagia or unintentional weight loss. Of note, patient currently on Eliquis twice daily for atrial fibrillation. She states history of gastroparesis for which she was taking erythromycin as prescribed by Dr. Rinaldi. She endorses that the [facility] facility stopped the erythromycin in July 2018. Patient endorses history of EGD "many years ago" without significant findings. At this time patient states frequent loose stools as she is tested positive for C diff toxin. Prior to this infection, patient states he had's 1 soft brown bowel movement daily without any noted bleeding. Denied issues with constipation or diarrhea in the past. Our service has been consulted to evaluate patient for difficulty swallowing 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, Family Member, 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, Curve Cleaner / EMT - Medical History Medical History: Medical History (Last Updated 11/29/18 @ 10:25 by Corrina Barron) Chronic pain (Acute) Hypertension (Acute) Atrial fibrillation (Acute) Chronic kidney disease History of Clostridium difficile infection Onset Date: ~11/28/18 Hyperlipidemia Muscle weakness Olecranon fracture Arthritis Gastroparesis Hx of hysterectomy - Surgical History Surgical History: Surgical History (Last Updated 11/28/18 @ 20:39 by Dereje Bowden MD, PhD) History of tonsillectomy History of back surgery History of cardiac radiofrequency ablation Hx of cholecystectomy - Family History Family History: Family History (Last Reviewed 11/28/18 @ 19:52 by BECCA Mina) Other Family history non-contributory - Tobacco History Second Hand Smoke Exposure: No Smoking Status: Never smoker - Alcohol History How Often Do You Have a Drink Containing Alcohol: Never - Substance Use History Substance History: No History of Abuse - Travel History Recent Travel in the [place] Within the Last 8 Weeks: No Recent Travel Out of the Country Within the Last 8 Weeks: No - Immunization History Tetanus Immunization: <5 Years Medications and Allergies Active Medications: Active Medications Albuterol (Duoneb Neb (Prn)) 1 ampul NEB Q4HR NEB PRN PRN Reason: SHORTNESS OF BREATH/WHEEZING Alprazolam (Xanax) 0.5 mg PO HS [facility] Last Admin: 11/29/18 20:40 Dose: Not Given Apixaban (Eliquis) 5 mg PO BID [facility] Last Admin: 11/30/18 08:26 Dose: 5 mg Cyanocobalamin (Vitamin B12 Inj) 1,000 mcg IM Q30D [facility] Folic Acid (Folic Acid) 1 mg PO DAILY [facility] Last Admin: 11/30/18 08:26 Dose: 1 mg Gabapentin (Neurontin) 100 mg PO BID [facility] Last Admin: 11/30/18 08:25 Dose: 100 mg Sodium Chloride (Ns Inj) 1,000 mls @ 84 mls/hr IV.CONT .[id number] [facility] Last Infusion: 11/30/18 09:53 Dose: Infused Miscellaneous (Pill Splitter) 1 each OTHER UNSCH PRN PRN Reason: PILL SPLITTER Ondansetron HCl (Zofran Inj) 4 mg IV.PUSH Q6H PRN PRN Reason: NAUSEA OR VOMITING Last Admin: 11/30/18 08:26 Dose: 4 mg Oxycodone/Acetaminophen (Percocet 5/325 Mg) 1 tab PO TID PRN PRN Reason: pain level 3-10 Last Admin: 11/30/18 08:32 Dose: 1 tab Pantoprazole Sodium (Protonix) 40 mg PO DAILY [facility] Last Admin: 11/30/18 08:26 Dose: 40 mg Pt:(Saccharomyces Boulardii [ Saccharomyces Boulardii] 250 Mg) 0 each PO BID [facility] Last Admin: 11/29/18 04:19 Dose: Not Given Prednisone (Deltasone) 5 mg PO DAILY [facility] Last Admin: 11/30/18 08:25 Dose: 5 mg Pregabalin (Lyrica) 75 mg PO HS [facility] Last Admin: 11/29/18 20:39 Dose: Not Given Propafenone HCl (Rythmol) 225 mg PO Q8HR [facility] Last Admin: 11/30/18 13:56 Dose: Not Given Sodium Chloride (Ns Flush) 2 ml IV.FLUSH BID [facility] Last Admin: 11/30/18 08:27 Dose: Not Given Sodium Chloride (Ns Flush) 2 ml IV.FLUSH PRN PRN PRN Reason: FLUSH AFTER USING IV ACCESS Vancomycin HCl (Vancomycin Po) 125 mg PO QID [facility] Last Admin: 11/30/18 12:27 Dose: 125 mg Vitamin D (Vitamin D3) 2,000 unit PO DAILY [facility] Last Admin: 11/30/18 08:26 Dose: 2,000 unit Allergies Allergy/AdvReac Type Severity Reaction Status Date / Time metoclopramide Allergy Severe Cramping Verified 08/10/18 07:55 of the Muscles penicillin G Allergy Severe Swelling Verified 08/10/18 07:55 tetanus toxoid, adsorbed Allergy Severe Cramping Verified 08/10/18 07:55 of the Muscles cefazolin Allergy Mild ALLERGY Verified 08/10/18 07:55 DOCUMENTED ON 05-07-09 ORDER @ 0030 sucralfate Allergy Unknown Abdominal Verified 08/10/18 07:55 Pain Home Medications Medication Instructions Recorded Confirmed Type apixaban [Eliquis] 5 mg PO BID 08/09/18 11/28/18 History cholecalciferol (vitamin D3) 2,000 unit PO DAILY 08/09/18 11/28/18 History [Vitamin D3] doxazosin 4 mg PO BID 08/09/18 11/28/18 History folic acid 1 mg PO DAILY 08/09/18 11/28/18 History furosemide [Lasix] 20 mg PO DAILY 08/09/18 11/28/18 History labetalol 100 mg PO TID 08/09/18 11/28/18 History methotrexate sodium 50 mg SUBCUT QWEEK 08/09/18 11/28/18 History pantoprazole [Protonix] 40 mg PO DAILY 08/09/18 11/28/18 History prednisone 5 mg PO DAILY 08/09/18 11/28/18 History rosuvastatin [Crestor] 5 mg PO Q3D 08/09/18 11/28/18 History spironolactone [Aldactone] 25 mg PO BID 08/09/18 11/28/18 History propafenone 225 mg PO Q8HR 08/12/18 11/28/18 History Saccharomyces boulardii 250 mg PO BID 11/28/18 11/28/18 History alprazolam [Xanax] 0.5 mg PO HS 11/28/18 11/28/18 History baclofen 20 mg PO BID 11/28/18 11/28/18 History cyanocobalamin (vitamin B-12) 1,000 mcg IM QMONTH 11/28/18 11/28/18 History gabapentin 100 mg PO BID 11/28/18 11/28/18 History magnesium hydroxide [Milk of 30 ml PO DAILY PRN 11/28/18 11/28/18 History Magnesia] morphine [MS Contin] 15 mg PO Q12H 11/28/18 11/28/18 History multivitamin with minerals 1 tab PO DAILY 11/28/18 11/28/18 History oxycodone-acetaminophen [Percocet] 1 tab PO TID PRN 11/28/18 11/28/18 History pregabalin [Lyrica] 75 mg PO HS 11/28/18 11/28/18 History promethazine 12.5 mg PO DAILY PRN 11/28/18 11/28/18 History vitamin B complex 1 cap PO DAILY 11/28/18 11/28/18 History Exam Vital signs: Vital Signs 11/29/18 16:00 11/29/18 20:00 11/29/18 23:00 Temperature 98.4 F 99 F Pulse Rate 86 91 H Respiratory Rate 17 18 Blood Pressure 111/59 L 109/60 Pulse Oximetry 96 97 94 L 11/30/18 00:00 11/30/18 08:00 11/30/18 12:00 Temperature 98.3 F 98.1 F 98.2 F Pulse Rate 85 87 94 H Respiratory Rate 18 16 17 Blood Pressure 123/67 121/56 L 117/59 L Pulse Oximetry 98 96 96 11/30/18 13:44 Temperature Pulse Rate Respiratory Rate Blood Pressure Pulse Oximetry 96 Intake & Output 11/29/18 11/30/18 11/30/18 18:59 06:59 18:59 Intake Total 1600 / 1600 742.5 / 742.5 1000 / 1000 Output Total 175 / 175 Balance 1600 / 1600 567.5 / 567.5 1000 / 1000 Weight 79.8 kg Intake: IV 1200 / 1200 262.5 / 262.5 1000 / 1000 NS Inj 1,000 ML @ 84 mls/hr IV. 1000 / 1000 1000 / 1000 CONT .[id number] [facility] Rx#:[id number] Azactam Inj 1,000 MG In NS Inj 200 / 200 100 ML @ 200 mls/hr IV.SIG Q8H [facility] Rx#:[id number] Vancomycin Inj 1,250 MG In NS 262.5 / 262.5 Inj 250 ML @ 250 mls/hr IV.SIG ONCE ONE Rx#:[id number] Oral 400 / 400 480 / 480 Output: Urine 175 / 175 Other: # Voids 1 6 # Bowel Movements 3 6 - Constitutional no acute distress, chronically ill appearing, cooperative - Routine HEENT Exam Head: Present: normocephalic - Routine Respiratory Exam Present: CTA bilaterally. Absent: accessory muscle use - Routine Cardiovascular Exam Present: RRR - Routine Abdominal Exam Present: soft, normoactive bowel sounds. Absent: tenderness, distended - Routine Skin Exam Present: dry, warm - Routine Neurological Exam Present: alert, oriented X3 Results - Labs CBC & Chem 7: 11/30/18 12:41 11/30/18 12:41 Labs: Laboratory Results - last 24 hr 11/30/18 11/30/18 12:41 12:41 WBC 1.4 L RBC 2.72 L Hgb 8.9 L Hct 27.6 L MCV 101.4 H MCH 32.8 MCHC 32.4 RDW 22.6 H Plt Count 266 MPV 7.3 Prelim Diff (Auto) Slide review pending Neut % (Auto) 88.5 H Lymph % (Auto) 8.7 L Motley % (Auto) 1.7 Eos % (Auto) 0.8 Baso % (Auto) 0.3 Neut # (Auto) 1.2 L Lymph # (Auto) 0.1 L Motley # (Auto) 0.0 Eos # (Auto) 0.0 Baso # (Auto) 0.0 WBC Differential Manual diff final Seg Neuts % (Manual) 77 H Band Neuts % (Manual) 17 H Lymphocytes % (Manual) 5 L Monocytes % (Manual) 1 Abs Neuts (Manual) 1.3 L Differential Comment . Platelet Estimate Normal Platelet Morphology Normal Ovalocytes 1+ H Sodium 141 Potassium 3.9 Chloride 112 H Carbon Dioxide 21.5 Anion Gap 8 BUN 13 Creatinine 0.59 Estimated GFR Greater than 89 Random Glucose 104 Calcium 7.5 L Assessment and Plan (1) Difficulty in swallowing Status: Acute Code(s): R13.10 - Dysphagia, unspecified - Plan Patient is a pleasant 78-year-old female with past medical history significant for arthritis, atrial fibrillation, chronic kidney disease, chronic pain, gastroparesis, hyperlipidemia and hypertension. Surgical history significant for spinal fusion in 2008, cardiac ablation, tonsillectomy and cholecystectomy. Patient also has tested positive for C. difficile toxin on 11/28/2018. Patient presented to [facility] emergency room from a [facility] facility where she is undergoing rehab post femur and ulna fracture in July 2018. Patient reports decreased appetite over the last week states some nausea but denies any vomiting. Patient denies abdominal pain fever or chills. Upon consultation, patient endorses that she gets occasional heartburn and has a sensation of pills getting stuck in her throat. Patient also states that she experiences gagging and has had these symptoms over the last few months. Patient denies odynophagia or unintentional weight loss. Of note, patient currently on Eliquis twice daily for atrial fibrillation. She states history of gastroparesis for which she was taking erythromycin as prescribed by Dr. Rinaldi. She endorses that the [facility] facility stopped the erythromycin in July 2018. Patient endorses history of EGD "many years ago" without significant findings. At this time patient states frequent loose stools as she is tested positive for C diff toxin. Prior to this infection, patient states he had's 1 soft brown bowel movement daily without any noted bleeding. Denied issues with constipation or diarrhea in the past. Our service has been consulted to evaluate patient for difficulty swallowing Dysphagia Patient endorses 2-3 months onset of difficulty swallowing pills. Patient states symptoms include gagging and feeling as though medication is stuck in throat. Patient denies difficulty with solid foods or liquids. History of diabetes along with gastroparesis. Presently diagnosed positive for C. difficile toxin. Frequent loose brown stools reported by nursing staff. Of note, patient currently taking Eliquis twice daily for atrial fibrillation. Plan -Diet as tolerated -Questran -Stool studies -Barium swallow -MBS with speech -Continue PPI -Continue Vancomycin -Recheck C-diff on 12/01/18 -Will plan for Gastric Emptying study- hx gastroparesis, not on EES -Supportive care -Further recommendations to follow This patient has been seen by myself and Dr. Mcgee and this note is written on his behalf - Attending Attestation Dr. Mcgee
[2018-11-30] MEDS: Pantoprazole Inj 40 MG Vial IV.PUSH SCH (15:46)
--- NOTE | 2018-11-30 16:15 | P.PNWCN ---
Wound Care Nurse Consult Description: Received wound management consult for buttock wounds and evaluation for specialty bed. Communicated with: TODD Baez and Abby Gay Recommendation: 1. Please cleanse buttock area gently with Remedy barrier wipes and pat dry. 2. Apply Calazime skin protectant paste mixed with Antifungal cream in equal amounts to buttock and posterior upper thighs covering open wounds BID and PRN and leave open to air. 3. Please turn patient every 2 hours and PRN for comfort and offloading of pressure from carly prominences. 4. Do not use cotton under pads or apply briefs on patient, use extrasorb pad for incontinence management. Wound/Pressure Injury - Wound Bilateral buttocks scattered partial thickness wounds Wound Assessment: Ongoing Requested from Provider a Wound Care Consult: Yes Wound Bed Appearance: [place] Wound Bed Appearance: All wounds present with 100% pink tissue. Periwound presents with peeling skin and satellite lesions Surrounding Tissue Appearance: [place] Surrounding Tissue Temperature: Warm Drainage Amount: None Drainage Odor: No Odor Dressing Status: Open to Air Wound Margin Description: poorly defined. - Additional Information Patient seen on for wound management of buttock area. Patient was turned with the assistance of senior medical writer and Mariaelena BROOKS to reveal scattered open wounds to bilateral buttocks and posterior upper thighs,Wounds appear partial thickness , with 100% pink tissue. Periwound presents with pink, denuded skin, with scattered satellite lesions. Wound margins are poorly defined with jagged, irregular edges. Area of skin break down on bilateral buttocks measures ~6cm x ~ 6 cmx ~<0.1cm on each buttock. Posterior upper thighs presents with scattered partial thickness wounds with largest measuring ~6cm x ~3cm x ~<0.1cm. Wounds were cleansed with normal saline and patted dry. Patient stool is positive for C difficile. TODD Sanchez reports stool is thickening. Applied Calazime skin protectant paste mixed with an equal amount of Antifungal cream to bilateral buttock and posterior upper thighs.all open areas were left open to air. Patient was positioned off of bottom with pillow in place for support. Wound care recommendations are noted above.
[2018-11-30] MEDS ORDERED: Vancomycin Consult Pharmacy OTHER PRN (18:00)
[2018-11-30] MEDS: ALPRAZolam 0.5 MG Tablet PO SCH (20:17)
[2018-11-30] MEDS: Pregabalin 75 MG Capsule PO SCH (20:17)
[2018-11-30] MEDS: Vancomycin Inj 1,000 MG in Sodium Chlor 0.9% Inj 250 ML IV.SIG SCH (20:17)
[2018-12-01] MEDS: Sod Chloride 0.9% Inj 1,000 ML IV.CONT SCH ×3 (01:28→17:51)
[2018-12-01] MEDS: Propafenone 150 MG Tablet PO SCH ×3 (05:50→21:07)
[2018-12-01 06:03] LABS: Hematocrit 26.5 % (35.0-46.0); Hemoglobin 8.6 gm/dL (11.6-15.3); Mean Corpuscular HGB Conc 32.6 % (32.0-36.0); Mean Corpuscular Hemoglobin 32.6 pg (27.0-34.0); Mean Corpuscular Volume 99.9 fL (80.0-100.0); Mean Platelet Volume 7.4 fL (7.0-11.0); Platelet Count 235 th/mm3 (150-450); Red Blood Count 2.65 mil/mm3 (4.00-5.30); White Blood Count 2.3 th/mm3 (4.0-11.0)
[2018-12-01 06:24] LABS: Anion Gap 7 meq/L (5-15); Blood Urea Nitrogen 7 mg/dL (7-18); Calcium 7.5 mg/dL (8.5-10.1); Carbon Dioxide 20.9 meq/L (21.0-32.0); Chloride 115 meq/L (98-107); Glomerular Filtration Rate Greater Than 89 mL/min (>89); Glucose,Random 84 mg/dL (74-106); Magnesium 1.9 mg/dL (1.5-2.5); Potassium 3.3 meq/L (3.5-5.1); Sodium 143 meq/L (136-145)
[2018-12-01 08:20] LABS: Eosinophils 2 % (0-4); Lymphocytes 14 % (9-44); Platelet Estimate Normal (Normal); Platelet Morphology Normal (Normal)
[2018-12-01 08:21] LABS: Ovalocytes 1+
--- NOTE | 2018-12-01 09:27 | P.PNIM ---
Subjective Interval history: less frequent stool last night after Questran Physical Exam Vital signs: Last Vital Signs Temp 98.6 F 12/01/18 08:00 Pulse 90 12/01/18 08:00 Resp 18 12/01/18 08:00 BP 157/75 H 12/01/18 08:00 Pulse Ox 100 12/01/18 08:00 Narrative: GENERAL: This is a, well-developed 78 year old female, in no apparent distress. SKIN: large unstable ulceration bilateral buttock CARDIOVASCULAR: Regular rate and rhythm RESPIRATORY: Clear to auscultation. Breath sounds equal bilaterally. GASTROINTESTINAL: Abdomen soft, non-tender, nondistended. Normal active bowel sounds MUSCULOSKELETAL: Extremities without clubbing, cyanosis, or edema. NEURO: Alert & Oriented. Moves all ext x4 Results Labs CBC & Chem 7: 12/04/18 05:35 12/04/18 05:35 Assessment and Plan Assessment (1) Difficulty in swallowing: Code(s): R13.10 - Dysphagia, unspecified Status: Acute (2) Atrial fibrillation: Code(s): I48.91 - Unspecified atrial fibrillation Status: Acute (3) Acute alteration in mental status: Code(s): R41.82 - Altered mental status, unspecified Status: Acute (4) NAVIN (acute kidney injury): Code(s): N17.9 - Acute kidney failure, unspecified Status: Acute (5) Pneumonia: Code(s): J18.9 - Pneumonia, unspecified organism Status: Acute (6) Anemia: Code(s): D64.9 - Anemia, unspecified Status: Acute (7) Pressure ulcer: Code(s): L89.90 - Pressure ulcer of unspecified site, unspecified stage Status: Acute (8) Hypertension: Code(s): I10 - Essential (primary) hypertension Status: Acute Plan This is a 77-year-old female patient with past medical history which includes atrial fibrillation, CKD stage 3, colitis, degenerative disc disease, GERD, hiatal hernia, hypertension, hyperlipidemia, inflammatory polyarthropathy and TIA. In 07/2018 patient fell at home fracturing right femur and Left olecranon s/p repair. Patient has been residing in SNF since fall 07/2018. C diff Patient presented to the ER due to AMS, lack of appetite and loose stools In talking to patient and her daughter, patient had C diff and completed PO Flagyl 1 week ago. The diarrhea started again Monday 11/27. C -diff positive 027 positive Stop current Abx (aztreonam and Levaquin) Start Vancomycin 125 mg PO QID Dysphagia ? esophageal stenosis hx gastroporesis Consult to GI, appreciate input Patient reports that she has seen Dr. Freed in the past and has had esophageal dilations in the past MBS with speech therapy pending barium swallow pending Acute alteration in mental status - improving Likely due to sepsis with underlying dehydration. Improving with IVF. NAVIN (acute kidney injury) on CKD stage 3 Has not been eating/drinking much for the last few days. On admission BUN 37, creatintine 1.65 and GFR 30 recheck 11/29 BUN 32, creatinine 1.01 and GFR 53 Continue IVF recheck CBC. BMP and Mag in AM Anemia chronic and relatively stable. Likely due to chronic illness. Follow. Pressure ulcer, large will offset pressure Consult wound care request specialty mattress Hypertension patient hypotensive - hold meds. Atrial fibrillation- rate controlled continue Eliquis in the past Hypokalemia potassium 3.3 this AM replaced recheck in AM recheck CBC and BMP in AM Attending Attestation The exam, history, and the medical decision-making described in the above note were completed with the assistance of the mid-level provider. I reviewed and agree with the findings presented. I attest that I had a [id number] encounter with the patient on the same day, and personally performed and documented my assessment and findings in the medical record. Patient examined. Assessment and plan formulated with Abby Gay PA-C. I agree with the above. Progress Note: Quality VTE Deep Vein Thrombosis/Pulmonary Embolism Present on Admission: No _ (1) Anemia Qualifiers: Anemia type: Bone marrow failure anemia type: Chronic kidney disease stage : Folate deficiency anemia type: Hemolytic anemia type: Iron deficiency anemia type: Other causes of anemia: Vitamin B12 deficiency anemia type: (2) Atrial fibrillation Qualifiers: Atrial fibrillation type: (3) Difficulty in swallowing Qualifiers: Dysphagia type: (4) Pressure ulcer Qualifiers: Laterality: Pressure injury location: buttock Pressure injury stage: stage 2 (5) Hypertension Qualifiers: Hypertension type: (6) Pneumonia Qualifiers: Aspiration pneumonia type: Laterality: left Lung location: lower lobe of lung Pneumonia type: due to unspecified organism Qualified Code(s): J18.1 - Lobar pneumonia, unspecified organism
--- NOTE | 2018-12-01 10:59 | P.CONPAL ---
Consult Service: Palliative Care Requesting Physician: Cliff Rodriguez Reason for Consult: a. To assist with evaluation and management of symptoms including: Pain, dysphagia, debility b. To assist medical decision maker(s) with: better understanding of current medical conditions; weighing benefits/burdens of medical treatment options; making medical treatment decisions. Primary Care Provider: UNKNOWN History of Present Illness History of Present Illness: Mrs Marr is a 78-year-old female with a medical history significant for atrial fibrillation on Eliquis, hypertension, chronic kidney disease stage III, gastroparesis, chronic pain, degenerative disc disease (lumbar radiculopathy status post lumbar fusion), inflammatory polyarthropathy, recent right femur fracture, left olecranon fracture s/p surgery, TIA, Clostridium difficile infection, urinary tract infection and hyperlipidemia. Patient was brought to the emergency room by EMS on 11/28/18 [facility] for further evaluation of malaise, altered mentation and fatigue for the past 24 hours. ER course: * Vital signs: Temperature 99 F, pulse 73, respiration rate 17, BP 97/57, O2 saturation 97% * Laboratory workup revealed WBC 4.3, hemoglobin 9.7, hematocrit 30.2, platelet count 247, PT 14.0, INR 1.4, sodium 137, potassium 5.0, BUN/creatinine 37/1.65, random glucose 105, calcium 8.0, AST 14, ALT 14, troponin less than 0.02, total protein 6.1, albumin 2.5, TSH 0.794 * EKG showed sinus rhythm with first-degree AV block pattern consistent with pulmonary disease inferior myocardial infarction. * Chest x-ray showed subsegmental infiltrate in the left lower lung. * Head CT revealed no acute intracranial abnormality. * Antibiotics administered for possible sepsis. * Urinalysis negative for leukocyte esterase and nitrites culture not indicated * Wound culture from 2 cups is positive for Staphylococcus aureus MRSA * Blood cultures-aerobic bottle blood culture positive for bacteremia coag negative. * Stool for collected on 11/28/18 positive for C. difficile * Patient was admitted for further evaluation and treatment. Wound care consulted on 11/30/18 to evaluate and manage wounds to buttocks. Infectious disease Dr. Caicedo consulted on 11/30/18 for evaluation and management of a patient with recurrent C. 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 GI Dr. Mcgee consulted on 11/30/18 for evaluation and management of patient with dysphagia, recommending starting patient on Questran, continue vancomycin, modified barium swallow and plan for gastric emptying study. Physical therapy consulted, recommending PT at rehab. Speech therapy consulted to evaluate patient for swallowing. Clinical course complicated with dysphagia , C. difficile infection, MRSA in wound, staph bacteremia and debility. Palliative care consulted to assist with symptom management and establishment of goals of medical treatment. Patient seen and examined in the room in the presence of a bedside RN. Patient has just arrived from radiology where she had modified barium swallow evaluation by speech therapy. Patient demonstrated mild oral phase and mild to moderate pharyngeal phase dysphagia. Speech therapy recommended continuing regular solids, thin liquids avoiding use of drugs and serial swallows. Patient is alert, oriented to self, place and situation. Patient currently denies pain but complains of discomfort to perineal area. Obtain psychosocial, past medical history and events leading to this hospitalization. Patient was able to narrate her medical history. Patient appears to have insight regarding her medical condition. Patient states that she has completed advanced directives in the past. According to patient her son Jd Marr is her power of senior trial attorney including healthcare and daughter Esme Chandra is her alternate POA including healthcare. Address CODE STATUS, discussed CPR, benefits, limitations and complications. Patient explained that she would not want to be put on life support and she would not want to burden her children by having them make a decision to compassionately withdrawing from life support. Patient elected Do not resuscitate/DO NOT INTUBATE. At this time patient would like to continue with aggressive treatment. Patient stated that she will further discuss with her adult children (son and daughter) regarding her wishes. Telephone call to patient's Tejinder Miles ([phone])-call was answered but apparently it`s a wrong number. Telephone call to patient's daughter Corazon. Palliative care contact information provided. Case discussed with bedside RN. . Function/Cognitive Trajectory: Patient's recent hospitalization was in July. Patient was hospitalized after she fell off a commode at home and he had a right femur fracture and left ulna fracture. Orthopedic recommended nonsurgical treatment of right distal femur and patient underwent open reduction to fixation of the left olecranon on 08/11/19. She was discharged to [facility] nursing facility for rehabilitation in July 2018 and has been there since then. Patient reports that she had been recently cleared to start ambulating but has never done so since she became ill and had to come back to the hospital. 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 Patient reports decreased oral intake and weight loss of approximately plus 30 pounds since July 2018. Prior to July 2018 patient ambulated at home with a rolling walker due to severe bilateral knee arthritis. Review of Systems Constitutional: Reports fatigue, Reports lack of energy, Reports malaise, Reports weakness, Denies increased appetite Eyes: Denies blurry vision, Denies bulging eyes Ears, Nose, Mouth, and Throat: Reports difficulty swallowing, Reports poor balance, Denies abnormal hearing, Denies hearing loss, Denies hoarseness, Denies nasal congestion, Denies nasal obstruction, Denies pain with swallowing, Denies tongue swelling Cardiovascular: Denies chest pain, Denies foot swelling, Denies generalized swelling, Denies leg swelling, Denies shortness of breath Respiratory: Denies chest congestion, Denies cough, Denies shortness of breath Gastrointestinal: Reports belching, Reports bloating, Reports heartburn, Reports loose stools, Reports nausea, Denies black, tarry stools, Denies bright , red blood in stools, Denies cramping, Denies vomiting Genitourinary: Denies blood in urine Musculoskeletal: Reports joint swelling, Reports limited joint movement, Denies muscle weakness Skin/Breast: Reports sores (buttocks area) Neurologic: Denies abnormal hearing, Denies abnormal speech, Denies confusion Psychiatric: Denies anxiety, Denies confusion, Denies memory loss Endocrine: Denies increased urination Hematologic/Lymphatic: Reports easy bruising PMFSH - History History Provided By: 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, 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, 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 - Medical History Medical History: Medical History (Last Updated 12/01/18 @ 11:17 by Ira Toledo) Chronic pain (Acute) Hypertension (Acute) Atrial fibrillation (Acute) Chronic kidney disease GERD (gastroesophageal reflux disease) History of Clostridium difficile infection Onset Date: ~11/28/18 Hyperlipidemia Muscle weakness Olecranon fracture Arthritis Gastroparesis Hx of hysterectomy - Surgical History Surgical History: Surgical History (Last Reviewed 12/01/18 @ 08:08 by Gladis Lee) History of tonsillectomy History of back surgery History of cardiac radiofrequency ablation Hx of cholecystectomy - Family History Family History: Family History (Last Updated 12/01/18 @ 11:14 by Ira Toledo) Father Lymphoma Arteriosclerotic heart disease Mother Heart disease Other Family history non-contributory - Social History I have reviewed the patient's Social History: Yes - Tobacco History Second Hand Smoke Exposure: No Smoking Status: Never smoker - Alcohol History How Often Do You Have a Drink Containing Alcohol: Never - Substance Use History Substance History: No History of Abuse - Travel History Recent Travel in the [place] Within the Last 8 Weeks: No Recent Travel Out of the Country Within the Last 8 Weeks: No - Immunization History Tetanus Immunization: <5 Years Hx Influenza Vaccine This Season: No Medications and Allergies Active Medications: Active Medications Albuterol (Duoneb Neb (Prn)) 1 ampul NEB Q4HR NEB PRN PRN Reason: SHORTNESS OF BREATH/WHEEZING Alprazolam (Xanax) 0.5 mg PO HS [facility] Last Admin: 11/30/18 20:17 Dose: 0.5 mg Apixaban (Eliquis) 5 mg PO BID [facility] Last Admin: 11/30/18 20:17 Dose: 5 mg Cholestyramine Resin (Questran 4 Gm Pkt) 4 gm PO TID [facility] Last Admin: 11/30/18 18:57 Dose: 4 gm Cyanocobalamin (Vitamin B12 Inj) 1,000 mcg IM Q30D [facility] Folic Acid (Folic Acid) 1 mg PO DAILY [facility] Last Admin: 11/30/18 08:26 Dose: 1 mg Gabapentin (Neurontin) 100 mg PO BID [facility] Last Admin: 11/30/18 20:17 Dose: 100 mg Sodium Chloride (Ns Inj) 1,000 mls @ 84 mls/hr IV.CONT .[id number] [facility] Last Admin: 12/01/18 03:22 Dose: Not Given Vancomycin HCl 1,000 mg/ (Sodium Chloride) 250 mls @ 250 mls/hr IV.SIG Q12H [facility] Last Infusion: 11/30/18 21:19 Dose: Infused Miscellaneous (Pill Splitter) 1 each OTHER UNSCH PRN PRN Reason: PILL SPLITTER Ondansetron HCl (Zofran Inj) 4 mg IV.PUSH Q6H PRN PRN Reason: NAUSEA OR VOMITING Last Admin: 11/30/18 08:26 Dose: 4 mg Oxycodone/Acetaminophen (Percocet 5/325 Mg) 1 tab PO TID PRN PRN Reason: pain level 3-10 Last Admin: 11/30/18 08:32 Dose: 1 tab Pantoprazole Sodium (Protonix Inj) 40 mg IV.PUSH Q24H [facility] Last Admin: 11/30/18 15:46 Dose: 40 mg Pt:(Saccharomyces Boulardii [ Saccharomyces Boulardii] 250 Mg) 0 each PO BID [facility] Last Admin: 11/29/18 04:19 Dose: Not Given Pharmacy Profile Note (Vancomycin Consult Pharmacy) 1 each OTHER UNSCH PRN PRN Reason: Pharmacy to dose Prednisone (Deltasone) 5 mg PO DAILY [facility] Last Admin: 11/30/18 08:25 Dose: 5 mg Pregabalin (Lyrica) 75 mg PO HS [facility] Last Admin: 11/30/18 20:17 Dose: 75 mg Propafenone HCl (Rythmol) 225 mg PO Q8HR [facility] Last Admin: 12/01/18 05:50 Dose: 225 mg Sodium Chloride (Ns Flush) 2 ml IV.FLUSH BID [facility] Last Admin: 11/30/18 20:24 Dose: Not Given Sodium Chloride (Ns Flush) 2 ml IV.FLUSH PRN PRN PRN Reason: FLUSH AFTER USING IV ACCESS Vancomycin HCl (Vancomycin Po) 125 mg PO QID [facility] Last Admin: 11/30/18 20:17 Dose: 125 mg Vitamin D (Vitamin D3) 2,000 unit PO DAILY [facility] Last Admin: 11/30/18 08:26 Dose: 2,000 unit Allergies Allergy/AdvReac Type Severity Reaction Status Date / Time metoclopramide Allergy Severe Cramping Verified 08/10/18 07:55 of the Muscles penicillin G Allergy Severe Swelling Verified 08/10/18 07:55 tetanus toxoid, adsorbed Allergy Severe Cramping Verified 08/10/18 07:55 of the Muscles cefazolin Allergy Mild ALLERGY Verified 08/10/18 07:55 DOCUMENTED ON 05-07-09 ORDER @ 0030 sucralfate Allergy Unknown Abdominal Verified 08/10/18 07:55 Pain Home Medications Medication Instructions Recorded Confirmed Type apixaban [Eliquis] 5 mg PO BID 08/09/18 11/28/18 History cholecalciferol (vitamin D3) 2,000 unit PO DAILY 08/09/18 11/28/18 History [Vitamin D3] doxazosin 4 mg PO BID 08/09/18 11/28/18 History folic acid 1 mg PO DAILY 08/09/18 11/28/18 History furosemide [Lasix] 20 mg PO DAILY 08/09/18 11/28/18 History labetalol 100 mg PO TID 08/09/18 11/28/18 History methotrexate sodium 50 mg SUBCUT QWEEK 08/09/18 11/28/18 History pantoprazole [Protonix] 40 mg PO DAILY 08/09/18 11/28/18 History prednisone 5 mg PO DAILY 08/09/18 11/28/18 History rosuvastatin [Crestor] 5 mg PO Q3D 08/09/18 11/28/18 History spironolactone [Aldactone] 25 mg PO BID 08/09/18 11/28/18 History propafenone 225 mg PO Q8HR 08/12/18 11/28/18 History Saccharomyces boulardii 250 mg PO BID 11/28/18 11/28/18 History alprazolam [Xanax] 0.5 mg PO HS 11/28/18 11/28/18 History baclofen 20 mg PO BID 11/28/18 11/28/18 History cyanocobalamin (vitamin B-12) 1,000 mcg IM QMONTH 11/28/18 11/28/18 History gabapentin 100 mg PO BID 11/28/18 11/28/18 History magnesium hydroxide [Milk of 30 ml PO DAILY PRN 11/28/18 11/28/18 History Magnesia] morphine [MS Contin] 15 mg PO Q12H 11/28/18 11/28/18 History multivitamin with minerals 1 tab PO DAILY 11/28/18 11/28/18 History oxycodone-acetaminophen [Percocet] 1 tab PO TID PRN 11/28/18 11/28/18 History pregabalin [Lyrica] 75 mg PO HS 11/28/18 11/28/18 History promethazine 12.5 mg PO DAILY PRN 11/28/18 11/28/18 History vitamin B complex 1 cap PO DAILY 11/28/18 11/28/18 History Advance Directives Living Will: Unknown Healthcare Surrogate: Yes (Copy note made available) Health Care Surrogate Name and Number: Stated: HCS:Jd Marr Alt: Esme Chandra Power of Planimeter Operator: Yes (Note made of stable) Power of Planimeter Operator Relationship to Patient: Children Documented care wishes: Patient states that she has completed a living will, no copy made available at this time. . Today's verbally stated goals: Patient would like to continue with aggressive treatment. . Family/friends goals: No family could be reached today by telephone. . Ethical and Legal Issues: None identified at this time. . Physical Exam Vital Signs: Vital Signs - 24 hr 11/30/18 12:00 11/30/18 13:44 11/30/18 16:00 Temperature 98.2 F 98.5 F Pulse Rate 94 H 94 H Respiratory Rate 17 17 Blood Pressure 117/59 L 117/68 Pulse Oximetry 96 96 96 11/30/18 20:00 11/30/18 20:20 12/01/18 00:00 Temperature 98.4 F 97.9 F Pulse Rate 98 H 91 H Respiratory Rate 20 22 Blood Pressure 144/74 H 119/65 Pulse Oximetry 99 99 96 12/01/18 08:00 Temperature 98.6 F Pulse Rate 90 Respiratory Rate 18 Blood Pressure 157/75 H Pulse Oximetry 100 I&O: Intake & Output 11/29/18 11/30/18 12/01/18 12/02/18 06:59 06:59 06:59 06:59 Intake Total 1470 / 1470 2342.5 / 2342.5 2650 / 2650 Output Total 700 / 700 175 / 175 Balance 770 / 770 2167.5 / 2167.5 2650 / 2650 Weight 127 kg 79.8 kg 76.8 kg Physical Exam: CONSTITUTIONAL/GENERAL: This is an elderly patient, in no apparent distress. TUBES/LINES/DRAINS: PIV SKIN: No jaundice, rashes, or lesions. Ecchymoses on upper extremities. Reported wounds to buttocks area. Normothermic. HEAD: Atraumatic. Normocephalic. EYES: Pupils equal and round and reactive. Extraocular motions intact. No scleral icterus. No injection or drainage. Fundi not examined. ENT: Hearing grossly normal. Nose without bleeding or purulent drainage. Moist oral mucosa. NECK: Trachea midline. Supple, nontender. CARDIOVASCULAR: Regular rate and rhythm without murmurs, gallops, or rubs. No JVD. Peripheral pulses symmetric. RESPIRATORY/CHEST: Symmetric, unlabored respirations. Diminished breath sounds. No wheezes, rales, or rhonchi. GASTROINTESTINAL: Abdomen soft, non-tender, nondistended. No guarding. Bowel sounds present. GENITOURINARY: Without palpable bladder distension. MUSCULOSKELETAL: Extremities without clubbing, cyanosis, or edema. No joint tenderness or effusion noted. No calf tenderness. No mottling or clubbing. LYMPHATICS: Did not assess. NEUROLOGICAL: Awake and alert. Motor and sensory grossly within normal limits. Follows commands. Cognitively sharp. Moves all extremities. PSYCHIATRIC: No obvious anxiety/depression. no apparent hallucinations or other psychotic thought process. . Diagnostic Tests Laboratory: Laboratory Results - last 72 hr 11/28/18 11/28/18 11/28/18 18:45 18:45 18:46 WBC 4.3 RBC 2.97 L Hgb 9.7 L Hct 30.2 L MCV 101.6 H MCH 32.8 MCHC 32.3 RDW 22.1 H Plt Count 247 MPV 7.3 Prelim Diff (Auto) Neut % (Auto) 92.7 H Lymph % (Auto) 4.9 L Dooly % (Auto) 1.9 Eos % (Auto) 0.1 Baso % (Auto) 0.4 Neut # (Auto) 4.0 Lymph # (Auto) 0.2 L Dooly # (Auto) 0.1 Eos # (Auto) 0.0 Baso # (Auto) 0.0 WBC Differential . Seg Neuts % (Manual) Band Neuts % (Manual) Lymphocytes % (Manual) Monocytes % (Manual) Eosinophils % (Manual) Basophils % (Manual) Abs Neuts (Manual) Differential Comment Auto diff final Platelet Estimate Platelet Morphology Ovalocytes PT INR Sodium Potassium Chloride Carbon Dioxide Anion Gap BUN Creatinine Estimated GFR Random Glucose Lactic Acid 2.0 Calcium Magnesium Total Bilirubin AST ALT Alkaline Phosphatase Total Creatine Kinase Troponin I Total Protein Albumin TSH Urine Color Belén Urine Clarity Hazy H Urine pH 5.0 Ur Specific Blackwell 1.015 Urine Protein Negative Urine Glucose (UA) Negative Urine Ketones Negative Urine Occult Blood Negative Urine Nitrate Negative Urine Bilirubin Negative Urine Urobilinogen Less than 2 Ur Leukocyte Esterase Negative Urine RBC 3 Urine WBC 2 Ur Squamous Epith Cells <1 Hyaline Casts 14 Urine Mucus Few H Micro UA Comment Culture not ind Ur Microscopic Review Not Reportable Urine Culture Comments Culture not ind Stool C.difficile Ag Stool C.difficile Toxin Stl C.difficile DNA Amp St C. diff Tox Epid 027 11/28/18 11/28/18 11/28/18 18:46 18:49 18:50 WBC RBC Hgb Hct MCV MCH MCHC RDW Plt Count MPV Prelim Diff (Auto) Neut % (Auto) Lymph % (Auto) Dooly % (Auto) Eos % (Auto) Baso % (Auto) Neut # (Auto) Lymph # (Auto) Dooly # (Auto) Eos # (Auto) Baso # (Auto) WBC Differential Seg Neuts % (Manual) Band Neuts % (Manual) Lymphocytes % (Manual) Monocytes % (Manual) Eosinophils % (Manual) Basophils % (Manual) Abs Neuts (Manual) Differential Comment Platelet Estimate Platelet Morphology Ovalocytes PT 14.0 H INR 1.4 Sodium 137 Potassium 5.0 Chloride 105 Carbon Dioxide 24.2 Anion Gap 8 BUN 37 H Creatinine 1.65 H Estimated GFR 30 L Random Glucose 105 Lactic Acid Calcium 8.0 L Magnesium 2.3 Total Bilirubin 0.5 AST 14 L ALT 14 Alkaline Phosphatase 73 Total Creatine Kinase 154 Troponin I Less than 0.02 L Total Protein 6.1 L Albumin 2.5 L TSH 0.794 Urine Color Urine Clarity Urine pH Ur Specific Blackwell Urine Protein Urine Glucose (UA) Urine Ketones Urine Occult Blood Urine Nitrate Urine Bilirubin Urine Urobilinogen Ur Leukocyte Esterase Urine RBC Urine WBC Ur Squamous Epith Cells Hyaline Casts Urine Mucus Micro UA Comment Ur Microscopic Review Urine Culture Comments Stool C.difficile Ag Positive H Stool C.difficile Toxin Positive H Stl C.difficile DNA Amp Positive H St C. diff Tox Epid 027 Positive H 11/29/18 11/29/18 11/30/18 05:29 05:29 12:41 WBC 2.1 L D 1.4 L RBC 2.62 L 2.72 L Hgb 8.5 L 8.9 L Hct 25.9 L 27.6 L MCV 99.0 101.4 H MCH 32.5 32.8 MCHC 32.9 32.4 RDW 22.7 H 22.6 H Plt Count 222 266 MPV 7.3 7.3 Prelim Diff (Auto) Slide review pending Neut % (Auto) 85.2 H 88.5 H Lymph % (Auto) 10.5 8.7 L Dooly % (Auto) 2.5 1.7 Eos % (Auto) 1.2 0.8 Baso % (Auto) 0.6 0.3 Neut # (Auto) 1.8 1.2 L Lymph # (Auto) 0.2 L 0.1 L Dooly # (Auto) 0.1 0.0 Eos # (Auto) 0.0 0.0 Baso # (Auto) 0.0 0.0 WBC Differential . Manual diff final Seg Neuts % (Manual) 77 H Band Neuts % (Manual) 17 H Lymphocytes % (Manual) 5 L Monocytes % (Manual) 1 Eosinophils % (Manual) Basophils % (Manual) Abs Neuts (Manual) 1.3 L Differential Comment Auto diff final . Platelet Estimate Normal Platelet Morphology Normal Ovalocytes 1+ H PT INR Sodium 140 Potassium 4.2 D Chloride 108 H Carbon Dioxide 22.6 Anion Gap 9 BUN 32 H Creatinine 1.01 H Estimated GFR 53 L Random Glucose 86 Lactic Acid Calcium 7.6 L Magnesium Total Bilirubin AST ALT Alkaline Phosphatase Total Creatine Kinase Troponin I Total Protein Albumin TSH Urine Color Urine Clarity Urine pH Ur Specific Blackwell Urine Protein Urine Glucose (UA) Urine Ketones Urine Occult Blood Urine Nitrate Urine Bilirubin Urine Urobilinogen Ur Leukocyte Esterase Urine RBC Urine WBC Ur Squamous Epith Cells Hyaline Casts Urine Mucus Micro UA Comment Ur Microscopic Review Urine Culture Comments Stool C.difficile Ag Stool C.difficile Toxin Stl C.difficile DNA Amp St C. diff Tox Epid 027 11/30/18 12/01/18 12/01/18 12:41 05:10 05:10 WBC 2.3 L D RBC 2.65 L Hgb 8.6 L Hct 26.5 L MCV 99.9 MCH 32.6 MCHC 32.6 RDW 22.0 H Plt Count 235 MPV 7.4 Prelim Diff (Auto) Manual diff required Neut % (Auto) Lymph % (Auto) Dooly % (Auto) Eos % (Auto) Baso % (Auto) Neut # (Auto) Lymph # (Auto) Dooly # (Auto) Eos # (Auto) Baso # (Auto) WBC Differential Manual diff final Seg Neuts % (Manual) 83 H Band Neuts % (Manual) Lymphocytes % (Manual) 14 Monocytes % (Manual) Eosinophils % (Manual) 2 Basophils % (Manual) 1 Abs Neuts (Manual) 1.9 Differential Comment . Platelet Estimate Normal Platelet Morphology Normal Ovalocytes 1+ H PT INR Sodium 141 143 Potassium 3.9 3.3 L Chloride 112 H 115 H Carbon Dioxide 21.5 20.9 L Anion Gap 8 7 BUN 13 7 Creatinine 0.59 0.50 Estimated GFR Greater than 89 Greater than 89 Random Glucose 104 84 Lactic Acid Calcium 7.5 L 7.5 L Magnesium 1.9 Total Bilirubin AST ALT Alkaline Phosphatase Total Creatine Kinase Troponin I Total Protein Albumin TSH Urine Color Urine Clarity Urine pH Ur Specific Blackwell Urine Protein Urine Glucose (UA) Urine Ketones Urine Occult Blood Urine Nitrate Urine Bilirubin Urine Urobilinogen Ur Leukocyte Esterase Urine RBC Urine WBC Ur Squamous Epith Cells Hyaline Casts Urine Mucus Micro UA Comment Ur Microscopic Review Urine Culture Comments Stool C.difficile Ag Stool C.difficile Toxin Stl C.difficile DNA Amp St C. diff Tox Epid 027 Result Diagrams: 12/01/18 05:10 12/01/18 05:10 Microbiology: Microbiology 11/28/18 18:35 Gram Stain - Final Abscess - Buttock Wound Culture - Final S. aureus MRSA 11/28/18 18:48 Aerobic Blood Culture - Preliminary Blood - Peripheral Staphylococcus coag negative Anaerobic Blood Culture - Preliminary No growth in 2 days 11/28/18 18:39 Aerobic Blood Culture - Preliminary Blood - Peripheral No growth in 2 days Anaerobic Blood Culture - Preliminary No growth in 2 days Imaging: Chest X-Ray 11/28/18 17:21 CONCLUSION: Subsegmental infiltrate in the left lower lung. Head CT 11/28/18 17:30 CONCLUSION: 1. No acute findings in the brain. 2. Opacification or fluid in the sphenoid sinus. . Patient/Family Conference Family Conference Location: Bedside Issues Discussed: * Palliative care role, purpose, approach * Additional medical, psychosocial, and spiritual history * Patients general health, functional status, and cognitive changes in the months leading up to the current hospitalization * Patient/family understanding of the current medical problems * Patient/family understanding of prognosis * Patients goals of care as best understood from advance directives and/or conversations and/or values * Current medical treatment options and benefits/burdens of those options * Likely scenarios comparing ongoing aggressive care with a transition to comfort measures only * Questions answered to the best of my ability * Palliative care contact information provided Assessment and Plan - Disease Oriented Problem List (1) Pneumonia (2) NAVIN (acute kidney injury) (3) Anemia (4) Atrial fibrillation (5) Hypertension (6) Pressure ulcer - Symptom Scale (1) Pain Comment: History of inflammatory polyarthropathy, recent right femur fracture and left olecranon fracture. (2) Dysphagia 0-10 Scale: Unable to quantify Comment: c/o difficulty swallowing (3) Debility 0-10 Scale: Unable to quantify Comment: Progressive Pertinent Non-Medical Issues: Psychosocial: Patient is originally from [place]. Patient is . Patient had 3 adult children, 2 daughters and 1 son. 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 Spiritual: Patient is Oriental Orthodox Legal: Patient states that she has completed DURABLE POWER OF NEWS WIRE PHOTO OPERATOR including healthcare naming his son is healthcare surrogate and he had daughter is the alternate HCS Ethical issues impacting care: None identified at this time. . Important Contacts: DPOA including healthcare -son-Jd Marr-[phone] Alternate DPOA including healthcare- daughter- Corazon Victoria-[phone] (Copy of advanced directives not made available but patient stated that her above-mentioned children are her medical decision makers when she is deemed incapacitated to participate in making medical decisions). Prognosis: Mrs Marr is a 78-year-old female with a medical history significant for atrial fibrillation on Eliquis, hypertension, chronic kidney disease stage III, gastroparesis, chronic pain, degenerative disc disease (lumbar radiculopathy status post lumbar fusion), inflammatory polyarthropathy, recent right femur fracture, left olecranon fracture s/p surgery, TIA, Clostridium difficile infection, urinary tract infection and hyperlipidemia. Patient was brought to the emergency room by EMS on 11/28/18 [facility] for further evaluation of malaise, altered mentation and fatigue for the past 24 hours. Clinical course complicated with dysphagia, C. difficile infection, MRSA in wound, staph bacteremia and debility. Given typical ongoing comorbidities, and multiple hospitalizations, patient remains at high risk for further complications, deterioration and decline. Prognosis is guarded. . Code Status: No Code DNR Plan: PLAN: Legal decision maker: Patient is oriented to self, place and situation. She has insight regarding her medical condition. She is able to currently participate in making her own medical decisions. In the event that she is incapacitated patient stated that her son Jd Marr is her DURABLE POWER OF NEWS WIRE PHOTO OPERATOR including healthcare and her daughter Corazon, Esme. Goals: Aggressive short of no code. Patient made herself a DNR/DNI. She mentioned that she has advanced directives and her above-mentioned adult children are her DURABLE POWER OF ATTORNEYs. Telephone call placed to both children per patient's request to notify them that patient has decided to change her CODE STATUS to DNR. Unfortunately, none of patient's children responded-voice message left on Alejandro` phone with palliative care contact information. Patient stated that she will further discuss with his children when they come to visit with her. Patient notified that at any given time she can change a CODE STATUS if she wants to. CODE STATUS: No code DNR/DNI SYMPTOMS: * Pain: History of degenerative disc disease, inflammatory polyarthropathy, and recent right femur fracture and left olecranon fracture. Patient also has pressure ulcer to the buttock area. Patient currently denying pain at time of visit. * Dysphagia: Reported history of esophageal dilatation in the past. Patient came in complaining of difficulty with swallowing. Patient went for modified barium swallow evaluation today 12/01/18. She was noted to have mild oral phase and mild to moderate pharyngeal phase dysphagia. Speech therapy recommended continuing regular solids, thin liquids avoiding use of drugs and serial swallows. * Debility: Progressive. Patient was recently hospitalized in July following a fall and he has been in rehab since July 2018. Patient reports that she has not yet started ambulating. Patient has been pretty much bed bound to wheelchair bound. Physical therapy consulted, recommending PT at rehab. Palliative care will continue to follow the patient during hospital course as condition evolves, to assist patient/decision-maker with understanding of their medical conditions, weighing benefits/burdens of treatment options, for clarification of goals of treatment. Additionally will assist with any symptoms of palliative concern Appreciation Thank you for the opportunity to participate in the care of Ting Marr. Attestation Attestation: To help prompt me to consider important information that might be impacting today's encounter and assessment, information from prior notes written by myself or my colleagues may have been "brought forward" into today's note. My signature on this note, however, is an attestation that I personally performed the exam, history, and/or decision-making noted today, and, unless otherwise indicated, the interactions with patient, family, and staff as well as the review of records all occurred today. I also attest that the listed assessment and stated plan reflect my best clinical judgment today based on the combination of historical information, prior notes, and today's exam/ interactions. When time spent is documented, it refers only to time spent today by the signer, or if indicated, combined time spent today by collaborating physician/nurse practitioner.
--- NOTE | 2018-12-01 11:33 | FL ---
EXAM DATE: 12/01/2018 11:26 AM EST AGE/SEX: 78 years / Female INDICATIONS: Dysphagia. CLINICAL DATA: This is the patient's subsequent encounter. Patient reports that signs and symptoms h ave been present for 4 - 6 days and indicates a pain score of 0/10. MEDICAL/SURGICAL HISTORY: . Arthritis. Gastroparesis. Hypertension. A-fib. . Hysterectomy. Fusion, lumbar. Cholecystectomy. Cardiac ablation. COMPARISON: [facility] [place] BARIUM SWALLOW, 03/04/2017. C, BARIUM SWALLOW, 12/01/2018. . FLUORO TIME: 3.5 IMAGE COUNT: 0 RADIATION DOSE: 686.4 DAP FINDINGS: A modified barium swallow was performed with speech pathology. Patient was given a variety of liquids to swallow. On some of the swallows, there is pooling of contrast in the vallecula and piriform sinuses. On one e pisode, there was penetration into the upper airway, but the contrast does not extend below the vocal cords folds. For a full detailed report, see report by the speech pathologist. CONCLUSION: No episodes of aspiration observed. Electronically signed by: Jesus Manuel Samaniego MD Board Certified Radiologist 12/01/2018 11:32 AM EST
[2018-12-01] MEDS: Gabapentin 100 MG Capsule PO SCH ×2 (11:41→20:30)
[2018-12-01] MEDS: Folic Acid 1 MG Tablet PO SCH (11:42)
[2018-12-01] MEDS: predniSONE 5 MG Tablet PO SCH (11:42)
[2018-12-01] MEDS: Vancomycin Inj 1,000 MG in Sodium Chlor 0.9% Inj 250 ML IV.SIG SCH (11:43)
--- NOTE | 2018-12-01 12:18 | FL ---
EXAM DATE: 12/01/2018 11:21 AM EST AGE/SEX: 78 years / Female INDICATIONS: Dysphagia. CLINICAL DATA: This is the patient's subsequent encounter. Patient reports that signs and symptoms h ave been present for 4 - 6 days and indicates a pain score of 0/10. MEDICAL/SURGICAL HISTORY: . Arthritis. Gastroparesis. Hypertension. A-fib. . Hysterectomy. Fus ion, lumbar. Cholecystectomy. Cardiac ablation. COMPARISON: [facility] [place] BARIUM SWALLOW, 03/04/2017. . FLUORO TIME: 0.6 IMAGE COUNT: 5 RADIATION DOSE: 4239.6 DAP FINDINGS: At the conclusion of a barium swallow with speech pathology (which are demonstrated laryngeal penetra tion but no elzbieta episodes of aspiration), the patient was observed in lateral projection while sitti ng in chair during swallowing of thin and thick barium. The barium passes promptly through the esopha antoni. The diameter of the esophagus is normal in the proximal midportion. No definite mucosal abnormal ity seen. No tertiary contractions seen. There is some narrowing at the GE junction, but this does no t impede the flow of barium. No additional imaging was performed. CONCLUSION: Limited barium swallow performed in lateral projection while sitting in chair demonstrates normal muc osal pattern to the esophagus, prompt passage of barium into the stomach, and some narrowing at the G E junction. Electronically signed by: Jesus Manuel Samaniego MD Board Certified Radiologist 12/01/2018 12:16 PM EST
--- NOTE | 2018-12-01 12:35 | P.PNGI ---
Subjective Interval history: Patient laying in bed comfortably Not in any respiratory No nausea no vomiting mild abdominal pain Still having diarrhea Physical Exam Vital signs: Vital Signs 11/30/18 13:44 11/30/18 16:00 11/30/18 20:00 Temperature 98.5 F 98.4 F Pulse Rate 94 H 98 H Respiratory Rate 17 20 Blood Pressure 117/68 144/74 H Pulse Oximetry 96 96 99 11/30/18 20:20 12/01/18 00:00 12/01/18 08:00 Temperature 97.9 F 98.6 F Pulse Rate 91 H 90 Respiratory Rate 22 18 Blood Pressure 119/65 157/75 H Pulse Oximetry 99 96 100 12/01/18 08:20 Temperature Pulse Rate Respiratory Rate Blood Pressure Pulse Oximetry 97 Intake & Output 11/30/18 12/01/18 12/01/18 18:59 06:59 18:59 Intake Total 2200 / 2200 450 / 450 Balance 2200 / 2200 450 / 450 Weight 76.8 kg Intake: IV 1000 / 1000 250 / 250 NS Inj 1,000 ML @ 84 mls/hr IV. 1000 / 1000 CONT .[id number] [facility] Rx#:[id number] Vancomycin Inj 1,000 MG In NS 250 / 250 Inj 250 ML @ 250 mls/hr IV.SIG Q12H [facility] Rx#:[id number] Oral 1200 / 1200 200 / 200 Other: # Voids 3 # Incontinent Voids 3 # Bowel Movements 10 # Incontinent Bowel Movements 5 Narrative: GENERAL: Alert oriented x3 SKIN: Warm and dry. Pressure ulcer stage III coccyx area HEAD: Normocephalic. EYES: Pupils equal and round. No scleral icterus. ENT: Mucous membranes pink and moist. NECK: Trachea midline. No JVD. CARDIOVASCULAR: Regular rate and rhythm. RESPIRATORY: No accessory muscle use. Clear to auscultation. GASTROINTESTINAL: Abdomen normoactive bowel sounds soft, non-tender, no distention MUSCULOSKELETAL: Extremities without edema. No obvious deformities. NEUROLOGICAL: Awake and alert. Cooperative - Urinary Catheter Management Indwelling Urethral Catheter Cath placed during this visit: yes Reason for continuing: Hourly intake/output Insertion date: 11/28/18 Insertion time: 19:06 Results - Labs CBC & Chem 7: 12/01/18 05:10 12/01/18 05:10 Laboratory Results - last 24 hr 11/30/18 11/30/18 12/01/18 12:41 12:41 05:10 WBC 1.4 L 2.3 L D RBC 2.72 L 2.65 L Hgb 8.9 L 8.6 L Hct 27.6 L 26.5 L MCV 101.4 H 99.9 MCH 32.8 32.6 MCHC 32.4 32.6 RDW 22.6 H 22.0 H Plt Count 266 235 MPV 7.3 7.4 Prelim Diff (Auto) Slide review pending Manual diff required Neut % (Auto) 88.5 H Lymph % (Auto) 8.7 L Coal % (Auto) 1.7 Eos % (Auto) 0.8 Baso % (Auto) 0.3 Neut # (Auto) 1.2 L Lymph # (Auto) 0.1 L Coal # (Auto) 0.0 Eos # (Auto) 0.0 Baso # (Auto) 0.0 WBC Differential Manual diff final Manual diff final Seg Neuts % (Manual) 77 H 83 H Band Neuts % (Manual) 17 H Lymphocytes % (Manual) 5 L 14 Monocytes % (Manual) 1 Eosinophils % (Manual) 2 Basophils % (Manual) 1 Abs Neuts (Manual) 1.3 L 1.9 Differential Comment . . Platelet Estimate Normal Normal Platelet Morphology Normal Normal Ovalocytes 1+ H 1+ H Sodium 141 Potassium 3.9 Chloride 112 H Carbon Dioxide 21.5 Anion Gap 8 BUN 13 Creatinine 0.59 Estimated GFR Greater than 89 Random Glucose 104 Calcium 7.5 L Magnesium 12/01/18 05:10 WBC RBC Hgb Hct MCV MCH MCHC RDW Plt Count MPV Prelim Diff (Auto) Neut % (Auto) Lymph % (Auto) Coal % (Auto) Eos % (Auto) Baso % (Auto) Neut # (Auto) Lymph # (Auto) Coal # (Auto) Eos # (Auto) Baso # (Auto) WBC Differential Seg Neuts % (Manual) Band Neuts % (Manual) Lymphocytes % (Manual) Monocytes % (Manual) Eosinophils % (Manual) Basophils % (Manual) Abs Neuts (Manual) Differential Comment Platelet Estimate Platelet Morphology Ovalocytes Sodium 143 Potassium 3.3 L Chloride 115 H Carbon Dioxide 20.9 L Anion Gap 7 BUN 7 Creatinine 0.50 Estimated GFR Greater than 89 Random Glucose 84 Calcium 7.5 L Magnesium 1.9 Microbiology 11/30/18 00:00 Stool Stool for WBCs - Final No WBC's seen 11/28/18 18:39 Blood - Peripheral Aerobic Blood Culture - Preliminary No growth in 3 days 11/28/18 18:39 Blood - Peripheral Anaerobic Blood Culture - Preliminary No growth in 3 days 11/28/18 18:48 Blood - Peripheral Aerobic Blood Culture - Preliminary Staphylococcus coag negative 11/28/18 18:48 Blood - Peripheral Anaerobic Blood Culture - Preliminary No growth in 3 days 11/28/18 18:35 Abscess - Buttock Gram Stain - Final 11/28/18 18:35 Abscess - Buttock Wound Culture - Final S. aureus MRSA - Imaging Impressions Barium Swallow X-Ray 12/01/18 00:00 CONCLUSION: Limited barium swallow performed in lateral projection while sitting in chair demonstrates normal mucosal pattern to the esophagus, prompt passage of barium into the stomach, and some narrowing at the GE junction. Videofluoroscopic Swallow 12/01/18 00:00 CONCLUSION: No episodes of aspiration observed. Assessment and Plan (1) Difficulty in swallowing Status: Acute Code(s): R13.10 - Dysphagia, unspecified (2) Dysphagia Status: Acute Code(s): R13.10 - Dysphagia, unspecified - Plan Patient is a pleasant 78-year-old female with past medical history significant for arthritis, atrial fibrillation, chronic kidney disease, chronic pain, gastroparesis, hyperlipidemia and hypertension. Surgical history significant for spinal fusion in 2008, cardiac ablation, tonsillectomy and cholecystectomy. Patient also has tested positive for C. difficile toxin on 11/28/2018. Patient [facility] post femur and ulna fracture in July 2018. Patient reports decreased appetite over the last week states some nausea but denies any vomiting. Patient denies abdominal pain fever or chills. Upon consultation, patient endorses that she gets occasional heartburn and has a sensation of pills getting stuck in her throat. Patient also states that she experiences gagging and has had these symptoms over the last few months. Patient denies odynophagia or unintentional weight loss. Of note, patient currently on Eliquis twice daily for atrial fibrillation. She states history of gastroparesis for which she was taking erythromycin as prescribed by Dr. Rinaldi. She endorses that the [facility] stopped the erythromycin in July 2018. Patient endorses history of EGD "many years ago" without significant findings. At this time patient states frequent loose stools as she is tested positive for C diff toxin. Prior to this infection, patient states he had's 1 soft brown bowel movement daily without any noted bleeding. Denied issues with constipation or diarrhea in the past. Our service has been consulted to evaluate patient for difficulty swallowing Dysphagia Patient endorses 2-3 months onset of difficulty swallowing pills. Patient states symptoms include gagging and feeling as though medication is stuck in throat. Patient denies difficulty with solid foods or liquids. History of diabetes along with gastroparesis. Presently diagnosed positive for C. difficile toxin. Frequent loose brown stools reported by nursing staff. Of note, patient currently taking Eliquis twice daily for atrial fibrillation. 12/01/2018 Assessment C. difficile colitis Dysphagia Diabetes with gastroparesis On Eliquis for atrial fibrillation Modified barium swallow showed no aspiration. A modified barium swallow was performed with speech pathology. Patient was given a variety of liquids to swallow. On some of the swallows, there is pooling of contrast in the vallecula and piriform sinuses. On one episode, there was penetration into the upper airway, but the contrast does not extend below the vocal cords folds. CONCLUSION: No episodes of aspiration observed. Barium swallow revealed Limited barium swallow performed in lateral projection while sitting in chair demonstrates normal mucosal pattern to the esophagus, prompt passage of barium into the stomach, and some narrowing at the GE junction. Plan -Diet as tolerated -Questran -Stool studies -Continue PPI -Continue Vancomycin Flagyl -Minimal narcotics use as these contribute to gastroparesis -Repeat C. difficile test today -Will plan for Gastric Emptying study- hx gastroparesis, not on EES -Supportive care -Further recommendations to follow This patient has been seen by myself and Dr. Mcgee and this note is written on his behalf - Attending Attestation Dr. Mcgee
[2018-12-01] MEDS: Pantoprazole Inj 40 MG Vial IV.PUSH SCH (15:17)
--- NOTE | 2018-12-01 16:10 | P.CONID ---
History of Present Illness Service: Infectious disease Consult date: 12/01/18 Requesting Physician: Cliff Rodriguez Reason for Consult: Evaluation and management of recurrent C. difficile Primary Care Provider: UNKNOWN Chief Complaint: AMS, malaise History of Present Illness: Ms. Marr is a 78-year-old female with past medical history significant for atrial fibrillation on Eliquis, hypertension, chronic kidney disease stage III, gastroparesis, chronic pain, degenerative disc disease status post lumbar fusion, recent right femur fracture, left olecranon fracture status post surgery. From infectious disease standpoint patient has had recurrent UTIs as well as C. difficile infection. With this background patient was brought into the emergency room by EMS on November 28, 2018 from a group home facility for further evaluation of malaise altered mental status and fatigue past 24 hours prior to admission. Upon initial evaluation her temperature was 99, pulse 73, respiratory rate 17, blood pressure 97/57 and O2 sats of 97%. Her WBC count on admission was 4.3, platelets 247, sodium 137 creatinine 1.6 by glucose 105. Chest x-ray showed subsegmental infiltrate versus atelectasis. CT head was done which was normal. Sepsis workup was initiated and patient had positive blood culture coag negative staph 1 out of 4 bottles. Wound cultures positive for MRSA. Stool positive for C. difficile. Patient has ongoing diarrhea to 13 episodes since this morning. Patient has some abdominal discomfort mostly tenderness. Patient has been started on oral vancomycin as well as patient is on IV vancomycin. Infectious diseases consulted for evaluation and management of recurrent C. difficile, MRSA wound infection and staph coagulase staph bacteremia. GI has also been consulted for evaluation and management of dysphagia. Palliative care has also been consulted for addressing goals of therapy. 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 - Medical History Medical History: Medical History (Last Updated 12/01/18 @ 11:17 by Ira Toledo) Chronic pain (Acute) Hypertension (Acute) Atrial fibrillation (Acute) Chronic kidney disease GERD (gastroesophageal reflux disease) History of Clostridium difficile infection Onset Date: ~11/28/18 Hyperlipidemia Muscle weakness Olecranon fracture Arthritis Gastroparesis Hx of hysterectomy - Surgical History Surgical History: Surgical History (Last Reviewed 12/01/18 @ 08:08 by Gladis Lee) History of tonsillectomy History of back surgery History of cardiac radiofrequency ablation Hx of cholecystectomy - Family History Family History: Family History (Last Updated 12/01/18 @ 11:14 by Ira Toledo) Father Lymphoma Arteriosclerotic heart disease Mother Heart disease Other Family history non-contributory - Tobacco History Second Hand Smoke Exposure: No Smoking Status: Never smoker - Alcohol History How Often Do You Have a Drink Containing Alcohol: Never - Substance Use History Substance History: No History of Abuse - Travel History Recent Travel in the [place] Within the Last 8 Weeks: No Recent Travel Out of the Country Within the Last 8 Weeks: No - Immunization History Tetanus Immunization: <5 Years Hx Influenza Vaccine This Season: No Medications and Allergies Active Medications: Active Medications Albuterol (Duoneb Neb (Prn)) 1 ampul NEB Q4HR NEB PRN PRN Reason: SHORTNESS OF BREATH/WHEEZING Alprazolam (Xanax) 0.5 mg PO HS [facility] Last Admin: 11/30/18 20:17 Dose: 0.5 mg Apixaban (Eliquis) 5 mg PO BID [facility] Last Admin: 12/01/18 11:41 Dose: 5 mg Cholestyramine Resin (Questran 4 Gm Pkt) 4 gm PO TID [facility] Last Admin: 12/01/18 12:46 Dose: Not Given Cyanocobalamin (Vitamin B12 Inj) 1,000 mcg IM Q30D [facility] Fidaxomicin (Dificid) 200 mg PO BID [facility] Folic Acid (Folic Acid) 1 mg PO DAILY [facility] Last Admin: 12/01/18 11:42 Dose: 1 mg Gabapentin (Neurontin) 100 mg PO BID [facility] Last Admin: 12/01/18 11:41 Dose: 100 mg Sodium Chloride (Ns Inj) 1,000 mls @ 84 mls/hr IV.CONT .[id number] [facility] Last Admin: 12/01/18 03:22 Dose: Not Given Miscellaneous (Pill Splitter) 1 each OTHER UNSCH PRN PRN Reason: PILL SPLITTER Ondansetron HCl (Zofran Inj) 4 mg IV.PUSH Q6H PRN PRN Reason: NAUSEA OR VOMITING Last Admin: 12/01/18 15:26 Dose: 4 mg Oxycodone/Acetaminophen (Percocet 5/325 Mg) 1 tab PO TID PRN PRN Reason: pain level 3-10 Last Admin: 11/30/18 08:32 Dose: 1 tab Pantoprazole Sodium (Protonix Inj) 40 mg IV.PUSH Q24H [facility] Last Admin: 12/01/18 15:17 Dose: 40 mg Pt:(Saccharomyces Boulardii [ Saccharomyces Boulardii] 250 Mg) 0 each PO BID [facility] Last Admin: 11/29/18 04:19 Dose: Not Given Prednisone (Deltasone) 5 mg PO DAILY [facility] Last Admin: 12/01/18 11:42 Dose: 5 mg Pregabalin (Lyrica) 75 mg PO HS [facility] Last Admin: 11/30/18 20:17 Dose: 75 mg Propafenone HCl (Rythmol) 225 mg PO Q8HR [facility] Last Admin: 12/01/18 15:17 Dose: 225 mg Sodium Chloride (Ns Flush) 2 ml IV.FLUSH BID [facility] Last Admin: 12/01/18 11:42 Dose: Not Given Sodium Chloride (Ns Flush) 2 ml IV.FLUSH PRN PRN PRN Reason: FLUSH AFTER USING IV ACCESS Vancomycin HCl (Vancomycin Po) 125 mg PO QID [facility] Last Admin: 12/01/18 12:46 Dose: Not Given Vitamin D (Vitamin D3) 2,000 unit PO DAILY [facility] Last Admin: 12/01/18 11:41 Dose: 2,000 unit Allergies Allergy/AdvReac Type Severity Reaction Status Date / Time metoclopramide Allergy Severe Cramping Verified 08/10/18 07:55 of the Muscles penicillin G Allergy Severe Swelling Verified 08/10/18 07:55 tetanus toxoid, adsorbed Allergy Severe Cramping Verified 08/10/18 07:55 of the Muscles cefazolin Allergy Mild ALLERGY Verified 08/10/18 07:55 DOCUMENTED ON 05-07-09 ORDER @ 0030 sucralfate Allergy Unknown Abdominal Verified 08/10/18 07:55 Pain Home Medications Medication Instructions Recorded Confirmed Type apixaban [Eliquis] 5 mg PO BID 08/09/18 11/28/18 History cholecalciferol (vitamin D3) 2,000 unit PO DAILY 08/09/18 11/28/18 History [Vitamin D3] doxazosin 4 mg PO BID 08/09/18 11/28/18 History folic acid 1 mg PO DAILY 08/09/18 11/28/18 History furosemide [Lasix] 20 mg PO DAILY 08/09/18 11/28/18 History labetalol 100 mg PO TID 08/09/18 11/28/18 History methotrexate sodium 50 mg SUBCUT QWEEK 08/09/18 11/28/18 History pantoprazole [Protonix] 40 mg PO DAILY 08/09/18 11/28/18 History prednisone 5 mg PO DAILY 08/09/18 11/28/18 History rosuvastatin [Crestor] 5 mg PO Q3D 08/09/18 11/28/18 History spironolactone [Aldactone] 25 mg PO BID 08/09/18 11/28/18 History propafenone 225 mg PO Q8HR 08/12/18 11/28/18 History Saccharomyces boulardii 250 mg PO BID 11/28/18 11/28/18 History alprazolam [Xanax] 0.5 mg PO HS 11/28/18 11/28/18 History baclofen 20 mg PO BID 11/28/18 11/28/18 History cyanocobalamin (vitamin B-12) 1,000 mcg IM QMONTH 11/28/18 11/28/18 History gabapentin 100 mg PO BID 11/28/18 11/28/18 History magnesium hydroxide [Milk of 30 ml PO DAILY PRN 11/28/18 11/28/18 History Magnesia] morphine [MS Contin] 15 mg PO Q12H 11/28/18 11/28/18 History multivitamin with minerals 1 tab PO DAILY 11/28/18 11/28/18 History oxycodone-acetaminophen [Percocet] 1 tab PO TID PRN 11/28/18 11/28/18 History pregabalin [Lyrica] 75 mg PO HS 11/28/18 11/28/18 History promethazine 12.5 mg PO DAILY PRN 11/28/18 11/28/18 History vitamin B complex 1 cap PO DAILY 11/28/18 11/28/18 History Exam Vital signs: Vital Signs 11/30/18 20:00 11/30/18 20:20 12/01/18 00:00 Temperature 98.4 F 97.9 F Pulse Rate 98 H 91 H Respiratory Rate 20 22 Blood Pressure 144/74 H 119/65 Pulse Oximetry 99 99 96 12/01/18 08:00 12/01/18 08:20 Temperature 98.6 F Pulse Rate 90 Respiratory Rate 18 Blood Pressure 157/75 H Pulse Oximetry 100 97 Intake & Output 11/30/18 12/01/18 12/01/18 18:59 06:59 18:59 Intake Total 2200 / 2200 450 / 450 250 / 250 Balance 2200 / 2200 450 / 450 250 / 250 Weight 76.8 kg Intake: IV 1000 / 1000 250 / 250 250 / 250 NS Inj 1,000 ML @ 84 mls/hr IV. 1000 / 1000 CONT .[id number] [facility] Rx#:[id number] Vancomycin Inj 1,000 MG In NS 250 / 250 250 / 250 Inj 250 ML @ 250 mls/hr IV.SIG Q12H [facility] Rx#:[id number] Oral 1200 / 1200 200 / 200 Other: # Voids 3 # Incontinent Voids 3 Date of Last Bowel Movement 12/01/18 # Bowel Movements 10 # Incontinent Bowel Movements 5 Narrative: GENERAL: Well-nourished well-developed, not in acute distress SKIN: Cool and dry, no generalized rash HEAD: Atraumatic. Normocephalic. No temporal or scalp tenderness. EYES: Pupils equal round and reactive. Scleral icterus. No injection or drainage. No petechia ENT: Nothing abnormal detected NECK: Trachea midline. Supple, nontender, no meningeal signs. CARDIOVASCULAR: HS audible. RESPIRATORY: Clear to auscultation bilaterally. GASTROINTESTINAL: Abdomen soft diffuse tenderness. MUSCULOSKELETAL: Extremities without clubbing, cyanosis. NEUROLOGICAL: Alert oriented 3. Nonfocal. Psych cooperative IV line sites ok. Results - Labs CBC & Chem 7: 12/01/18 05:10 12/01/18 05:10 Labs: Laboratory Results - last 24 hr 12/01/18 12/01/18 05:10 05:10 WBC 2.3 L D RBC 2.65 L Hgb 8.6 L Hct 26.5 L MCV 99.9 MCH 32.6 MCHC 32.6 RDW 22.0 H Plt Count 235 MPV 7.4 Prelim Diff (Auto) Manual diff required WBC Differential Manual diff final Seg Neuts % (Manual) 83 H Lymphocytes % (Manual) 14 Eosinophils % (Manual) 2 Basophils % (Manual) 1 Abs Neuts (Manual) 1.9 Differential Comment . Platelet Estimate Normal Platelet Morphology Normal Ovalocytes 1+ H Sodium 143 Potassium 3.3 L Chloride 115 H Carbon Dioxide 20.9 L Anion Gap 7 BUN 7 Creatinine 0.50 Estimated GFR Greater than 89 Random Glucose 84 Calcium 7.5 L Magnesium 1.9 - Imaging Impressions Barium Swallow X-Ray 12/01/18 00:00 CONCLUSION: Limited barium swallow performed in lateral projection while sitting in chair demonstrates normal mucosal pattern to the esophagus, prompt passage of barium into the stomach, and some narrowing at the GE junction. Videofluoroscopic Swallow 12/01/18 00:00 CONCLUSION: No episodes of aspiration observed. Assessment and Plan - Plan C. difficile positive diarrhea MRSA likely wound colonization Coag negative staph bacteremia likely pseudo-bacteremia as its only 1 out of 4 bottles Recent history of surgeries and hospitalization likely risk factor for C. difficile infection Recommendations Discontinue IV vancomycin Continue oral Vanco Start oral Dificid Follow cultures Follow clinical course No need for C. difficile PCR testing as patient has ongoing diarrhea. C. difficile PCR is not used for test of cure. If diarrhea persists will need consideration of Vanco enema if no response to above regimen within [address] Valdes covering for me this weekend. If clinically worsens please call Dr. Joyce to evaluate the patient.
[2018-12-01] MEDS: Pregabalin 75 MG Capsule PO SCH (20:29)
[2018-12-01] MEDS: ALPRAZolam 0.5 MG Tablet PO SCH (20:30)
[2018-12-02] MEDS: Propafenone 150 MG Tablet PO SCH ×3 (05:26→22:56)
[2018-12-02] MEDS: Sod Chloride 0.9% Inj 1,000 ML IV.CONT SCH ×2 (05:27→18:14)
[2018-12-02 08:03] LABS: Baso % (Auto) 0.9 % (0.0-2.0); Eos % (Auto) 1.8 % (0.0-4.0); Hematocrit 27.9 % (35.0-46.0); Hemoglobin 9.1 gm/dL (11.6-15.3); Lymph # (Auto) 0.3 th/mm3 (1.0-4.8); Lymph % (Auto) 10.8 % (9.0-44.0); Mean Corpuscular HGB Conc 32.5 % (32.0-36.0); Mean Corpuscular Volume 101.5 fL (80.0-100.0); Mean Platelet Volume 7.2 fL (7.0-11.0); Mono # (Auto) 0.1 th/mm3 (0.0-0.9); Mono % (Auto) 2.2 % (0.0-8.0); Neut # (Auto) 2.1 th/mm3 (1.8-7.7); Neut % (Auto) 84.3 % (16.0-70.0); Platelet Count 237 th/mm3 (150-450); Red Blood Count 2.75 mil/mm3 (4.00-5.30); White Blood Count 2.4 th/mm3 (4.0-11.0)
[2018-12-02 08:29] LABS: Anion Gap 9 meq/L (5-15); Blood Urea Nitrogen 3 mg/dL (7-18); Calcium 7.4 mg/dL (8.5-10.1); Carbon Dioxide 20.5 meq/L (21.0-32.0); Chloride 116 meq/L (98-107); Glomerular Filtration Rate Greater Than 89 mL/min (>89); Glucose,Random 79 mg/dL (74-106); Magnesium 1.8 mg/dL (1.5-2.5); Sodium 145 meq/L (136-145)
[2018-12-02 08:41] LABS: Potassium 2.8 meq/L (3.5-5.1)
[2018-12-02] MEDS: predniSONE 5 MG Tablet PO SCH (08:55)
[2018-12-02] MEDS: Folic Acid 1 MG Tablet PO SCH (08:56)
[2018-12-02] MEDS: Gabapentin 100 MG Capsule PO SCH ×2 (08:56→22:39)
[2018-12-02] MEDS ORDERED: Potassium Chlor 20 mEq Premix 20 MEQ/100 ML PIGGYBACK IV.SIG ONE (11:36)
--- NOTE | 2018-12-02 11:39 | P.PNIM ---
Subjective Interval history: Patient reports BMs much better today, only 3 BMs through the night Physical Exam Vital signs: Last Vital Signs Temp 98.6 F 12/02/18 08:00 Pulse 90 12/02/18 08:00 Resp 18 12/02/18 08:00 BP 168/79 H 12/02/18 08:00 Pulse Ox 98 12/02/18 08:00 Narrative: GENERAL: This is a, well-developed 78 year old female, in no apparent distress. SKIN: large unstable ulceration bilateral buttock CARDIOVASCULAR: Regular rate and rhythm RESPIRATORY: Clear to auscultation. Breath sounds equal bilaterally. GASTROINTESTINAL: Abdomen soft, non-tender, nondistended. Normal active bowel sounds MUSCULOSKELETAL: Extremities without clubbing, cyanosis, or edema. NEURO: Alert & Oriented. Moves all ext x4 Results Labs CBC & Chem 7: 12/04/18 05:35 12/04/18 05:35 Assessment and Plan Plan This is a 77-year-old female patient with past medical history which includes atrial fibrillation, CKD stage 3, colitis, degenerative disc disease, GERD, hiatal hernia, hypertension, hyperlipidemia, inflammatory polyarthropathy and TIA. In 07/2018 patient fell at home fracturing right femur and Left olecranon s/p repair. Patient has been residing in SNF since 07/2018. C diff Patient presented to the ER due to AMS, lack of appetite and loose stools In talking to patient and her daughter, patient had C diff and completed PO Flagyl 1 week ago. The diarrhea started again Monday 11/27. C -diff positive 027 positive Stop current Abx (aztreonam and Levaquin) continue Vancomycin 125 mg PO QID ID also following added Dificid 200mg PO BID (12/01 - 12/11) buttock wound --> MRSA blood culutre --> staphylococcus capitis-capitis - consult Infectious Disease - consult Palliative Care Dysphagia ? esophageal stenosis hx gastroporesis Consult to GI, appreciate input Patient reports that she has seen Dr. Freed in the past and has had esophageal dilations in the past MBS with speech therapy pending barium swallow pending Acute alteration in mental status - improving Likely due to sepsis with underlying dehydration. Improving with IVF. NAVIN (acute kidney injury) on CKD stage 3 Has not been eating/drinking much for the last few days. On admission BUN 37, creatintine 1.65 and GFR 30 recheck 2/13 BUN 32, creatinine 1.01 and GFR 53 Continue IVF recheck CBC. BMP and Mag in AM Anemia chronic and relatively stable. Likely due to chronic illness. Follow. Pressure ulcer, large will offset pressure Consult wound care request specialty mattress Hypertension patient hypotensive - hold meds. Atrial fibrillation- rate controlled continue Eliquis in the past Hypokalemia potassium 3.3 (12/01) potassium (12/02) 2.8 replaced recheck 1800 recheck in AM DVT prophylaxis patient on Eliquis Attending Attestation The exam, history, and the medical decision-making described in the above note were completed with the assistance of the mid-level provider. I reviewed and agree with the findings presented. I attest that I had a [id number] encounter with the patient on the same day, and personally performed and documented my assessment and findings in the medical record. Patient examined. Assessment and plan formulated with Abby Gay PA-C. I agree with the above. Progress Note: Quality VTE Deep Vein Thrombosis/Pulmonary Embolism Present on Admission: No
[2018-12-02] MEDS: Pantoprazole Inj 40 MG Vial IV.PUSH SCH (15:33)
--- NOTE | 2018-12-02 17:36 | P.PNGI ---
Subjective Interval history: Patient laying in bed Feels much better today Less diarrhea, only had 2 small BMs <Roby Rhodes - Last Filed: 12/02/18 17:39> Physical Exam Vital signs: Vital Signs 12/01/18 20:00 12/02/18 00:00 12/02/18 08:00 Temperature 98.2 F 98.2 F 98.6 F Pulse Rate 101 H 89 90 Respiratory Rate 20 20 18 Blood Pressure 162/72 H 159/76 H 168/79 H Pulse Oximetry 99 100 98 Intake & Output 12/01/18 12/02/18 12/02/18 18:59 06:59 18:59 Intake Total 1250 / 1250 1000 / 1000 100 / 100 Balance 1250 / 1250 1000 / 1000 100 / 100 Weight 78.5 kg Intake: IV 1250 / 1250 1000 / 1000 100 / 100 NS Inj 1,000 ML @ 84 mls/hr IV. 1000 / 1000 1000 / 1000 CONT .[id number] [facility] Rx#:[id number] KCl 20 mEq Premix Inj 20 meq In 100 / 100 100 ml @ 50 mls/hr IV.SIG ONCE ONE Rx#:[id number] Vancomycin Inj 1,000 MG In NS 250 / 250 Inj 250 ML @ 250 mls/hr IV.SIG Q12H [facility] Rx#:[id number] Other: # Incontinent Voids 10 Date of Last Bowel Movement 12/01/18 12/01/18 12/02/18 # Bowel Movements 1 2 # Incontinent Bowel Movements 5 - Constitutional no acute distress, obese - Routine HEENT Exam Head: Present: normocephalic, atraumatic - Routine Neck Exam Present: supple - Routine Respiratory Exam Present: CTA bilaterally - Routine Cardiovascular Exam Present: RRR, S1, S2 - Routine Abdominal Exam Present: soft, normoactive bowel sounds. Absent: tenderness, distended - Routine Exam Perineum Description: Lesion Comments: Stage III coccyx - Routine Skin Exam Present: dry, petechiae, warm - Routine Neurological Exam Present: alert, oriented X3 - Routine Psychiatric Exam Present: normal affect, cooperative - Urinary Catheter Management Indwelling Urethral Catheter Cath placed during this visit: yes Reason for continuing: Hourly intake/output Insertion date: 11/28/18 Insertion time: 19:06 <Roby Rhodes - Last Filed: 12/02/18 17:39> Vital signs: Vital Signs 12/01/18 20:00 12/02/18 00:00 12/02/18 08:00 Temperature 98.2 F 98.2 F 98.6 F Pulse Rate 101 H 89 90 Respiratory Rate 20 20 18 Blood Pressure 162/72 H 159/76 H 168/79 H Pulse Oximetry 99 100 98 Intake & Output 12/01/18 12/02/18 12/02/18 18:59 06:59 18:59 Intake Total 1250 / 1250 1000 / 1000 1100 / 1100 Balance 1250 / 1250 1000 / 1000 1100 / 1100 Weight 78.5 kg Intake: IV 1250 / 1250 1000 / 1000 1100 / 1100 NS Inj 1,000 ML @ 84 mls/hr IV. 1000 / 1000 1000 / 1000 1000 / 1000 CONT .[id number] [facility] Rx#:[id number] KCl 20 mEq Premix Inj 20 meq In 100 / 100 100 ml @ 50 mls/hr IV.SIG ONCE ONE Rx#:[id number] Vancomycin Inj 1,000 MG In NS 250 / 250 Inj 250 ML @ 250 mls/hr IV.SIG Q12H [facility] Rx#:[id number] Other: # Incontinent Voids 10 Date of Last Bowel Movement 12/01/18 12/01/18 12/02/18 # Bowel Movements 1 2 # Incontinent Bowel Movements 5 - Urinary Catheter Management Indwelling Urethral Catheter Cath placed during this visit: no <Gian Velasquez - Last Filed: 12/02/18 18:50> Results - Labs CBC & Chem 7: 12/02/18 06:44 12/02/18 06:44 Laboratory Results - last 24 hr 12/02/18 12/02/18 06:44 06:44 WBC 2.4 L RBC 2.75 L Hgb 9.1 L Hct 27.9 L MCV 101.5 H MCH 33.0 MCHC 32.5 RDW 22.0 H Plt Count 237 MPV 7.2 Prelim Diff (Auto) Slide review pending Neut % (Auto) 84.3 H Lymph % (Auto) 10.8 [place] % (Auto) 2.2 Eos % (Auto) 1.8 Baso % (Auto) 0.9 Neut # (Auto) 2.1 Lymph # (Auto) 0.3 L [place] # (Auto) 0.1 Eos # (Auto) 0.0 Baso # (Auto) 0.0 WBC Differential . Diff Scan Auto diff confirmed Differential Comment . Sodium 145 Potassium 2.8 L* Chloride 116 H Carbon Dioxide 20.5 L Anion Gap 9 BUN 3 L Creatinine 0.49 L Estimated GFR Greater than 89 Random Glucose 79 Calcium 7.4 L* Calcium Adj for Albumin 9.0 Magnesium 1.8 Albumin 2.0 L Microbiology 11/28/18 18:48 Blood - Peripheral Aerobic Blood Culture - Final Staphylococcus capitis-capitis 11/28/18 18:48 Blood - Peripheral Anaerobic Blood Culture - Preliminary No growth in 4 days 11/28/18 18:39 Blood - Peripheral Aerobic Blood Culture - Preliminary No growth in 4 days 11/28/18 18:39 Blood - Peripheral Anaerobic Blood Culture - Preliminary No growth in 4 days 11/30/18 00:00 Stool Enteric Pathogens (PCR) - Final <Roby Rhodes - Last Filed: 12/02/18 17:39> - Labs CBC & Chem 7: 12/02/18 06:44 12/02/18 06:44 Laboratory Results - last 24 hr 12/02/18 12/02/18 06:44 06:44 WBC 2.4 L RBC 2.75 L Hgb 9.1 L Hct 27.9 L MCV 101.5 H MCH 33.0 MCHC 32.5 RDW 22.0 H Plt Count 237 MPV 7.2 Prelim Diff (Auto) Slide review pending Neut % (Auto) 84.3 H Lymph % (Auto) 10.8 [place] % (Auto) 2.2 Eos % (Auto) 1.8 Baso % (Auto) 0.9 Neut # (Auto) 2.1 Lymph # (Auto) 0.3 L [place] # (Auto) 0.1 Eos # (Auto) 0.0 Baso # (Auto) 0.0 WBC Differential . Diff Scan Auto diff confirmed Differential Comment . Sodium 145 Potassium 2.8 L* Chloride 116 H Carbon Dioxide 20.5 L Anion Gap 9 BUN 3 L Creatinine 0.49 L Estimated GFR Greater than 89 Random Glucose 79 Calcium 7.4 L* Calcium Adj for Albumin 9.0 Magnesium 1.8 Albumin 2.0 L Microbiology 11/28/18 18:48 Blood - Peripheral Aerobic Blood Culture - Final Staphylococcus capitis-capitis 11/28/18 18:48 Blood - Peripheral Anaerobic Blood Culture - Preliminary No growth in 4 days 11/28/18 18:39 Blood - Peripheral Aerobic Blood Culture - Preliminary No growth in 4 days 11/28/18 18:39 Blood - Peripheral Anaerobic Blood Culture - Preliminary No growth in 4 days 11/30/18 00:00 Stool Enteric Pathogens (PCR) - Final <Gian Velasquez - Last Filed: 12/02/18 18:50> Assessment and Plan (1) Difficulty in swallowing Status: Acute Code(s): R13.10 - Dysphagia, unspecified (2) Dysphagia Status: Acute Code(s): R13.10 - Dysphagia, unspecified (3) C. difficile colitis Status: Acute Code(s): A04.72 - Enterocolitis due to Clostridium difficile, not specified as recurrent (4) Gastroparesis Status: Acute Code(s): K31.84 - Gastroparesis - Plan Patient is a pleasant 78-year-old female with past medical history significant for arthritis, atrial fibrillation, chronic kidney disease, chronic pain, gastroparesis, hyperlipidemia and hypertension. Surgical history significant for spinal fusion in 2008, cardiac ablation, tonsillectomy and cholecystectomy. Patient also has tested positive for C. difficile toxin on 11/28/2018. Patient presented to [facility] emergency room from a assisted facility where she is undergoing rehab post femur and ulna fracture in July 2018. Patient reports decreased appetite over the last week states some nausea but denies any vomiting. Patient denies abdominal pain fever or chills. Upon consultation, patient endorses that she gets occasional heartburn and has a sensation of pills getting stuck in her throat. Patient also states that she experiences gagging and has had these symptoms over the last few months. Patient denies odynophagia or unintentional weight loss. Of note, patient currently on Eliquis twice daily for atrial fibrillation. She states history of gastroparesis for which she was taking erythromycin as prescribed by Dr. Rinaldi. She endorses that the assisted facility stopped the erythromycin in July 2018. Patient endorses history of EGD "many years ago" without significant findings. At this time patient states frequent loose stools as she is tested positive for C diff toxin. Prior to this infection, patient states he had's 1 soft brown bowel movement daily without any noted bleeding. Denied issues with constipation or diarrhea in the past. Our service has been consulted to evaluate patient for difficulty swallowing Dysphagia Patient endorses 2-3 months onset of difficulty swallowing pills. Patient states symptoms include gagging and feeling as though medication is stuck in throat. Patient denies difficulty with solid foods or liquids. History of diabetes along with gastroparesis. Presently diagnosed positive for C. difficile toxin. Frequent loose brown stools reported by nursing staff. Of note, patient currently taking Eliquis twice daily for atrial fibrillation. 12/01/2018 Assessment C. difficile colitis Dysphagia Diabetes with gastroparesis On Eliquis for atrial fibrillation Modified barium swallow showed no aspiration. A modified barium swallow was performed with speech pathology. Patient was given a variety of liquids to swallow. On some of the swallows, there is pooling of contrast in the vallecula and piriform sinuses. On one episode, there was penetration into the upper airway, but the contrast does not extend below the vocal cords folds. CONCLUSION: No episodes of aspiration observed. Barium swallow revealed Limited barium swallow performed in lateral projection while sitting in chair demonstrates normal mucosal pattern to the esophagus, prompt passage of barium into the stomach, and some narrowing at the GE junction. 12/02/2018 C. difficile colitis Dysphagia Diabetes with gastroparesis On Eliquis for atrial fibrillation Hypokalemia potassium 2.8 Hemoglobin 9.1 hematocrit 27.9 platelets 237 Plan -Cardiac diet -Continue Questran -Positive C. difficile 11/28/2018 -Potassium replacement per attending -Continue PPI -Continue Vancomycin Flagyl -Minimal narcotics use as these contribute to gastroparesis -will do EGD with dilatation once C. difficile infection is cleared or as an outpatient -Supportive care -Further recommendations to follow This patient has been seen by myself and Dr. Velasquez and this note is written on his behalf - Attending Attestation Dr Velasquez <Roby Rhodes - Last Filed: 12/02/18 17:39> (1) Difficulty in swallowing Status: Acute Code(s): R13.10 - Dysphagia, unspecified (2) Dysphagia Status: Acute Code(s): R13.10 - Dysphagia, unspecified (3) C. difficile colitis Status: Acute Code(s): A04.72 - Enterocolitis due to Clostridium difficile, not specified as recurrent (4) Gastroparesis Status: Acute Code(s): K31.84 - Gastroparesis - Plan seen and examined with REEL HOOKER, diarrhea better, worsening dysphagia. Hold eliquis egd/dilation on tuesday. <Gian Velasquez - Last Filed: 12/02/18 18:50>
[2018-12-02] MEDS: ALPRAZolam 0.5 MG Tablet PO SCH (22:40)
[2018-12-02] MEDS: Pregabalin 75 MG Capsule PO SCH (22:40)
[2018-12-03] MEDS: Sod Chloride 0.9% Inj 1,000 ML IV.CONT SCH ×3 (04:52→17:36)
[2018-12-03] MEDS: Propafenone 150 MG Tablet PO SCH ×3 (06:54→20:59)
[2018-12-03 08:26] LABS: Hematocrit 27.4 % (35.0-46.0); Hemoglobin 9.1 gm/dL (11.6-15.3); Mean Corpuscular HGB Conc 33.4 % (32.0-36.0); Mean Corpuscular Hemoglobin 33.9 pg (27.0-34.0); Mean Corpuscular Volume 101.7 fL (80.0-100.0); Mean Platelet Volume 7.1 fL (7.0-11.0); Platelet Count 196 th/mm3 (150-450); Red Blood Count 2.69 mil/mm3 (4.00-5.30); Red Cell Distribution Width 21.8 % (11.6-17.2); White Blood Count 1.3 th/mm3 (4.0-11.0)
[2018-12-03 08:53] LABS: Anion Gap 6 meq/L (5-15); Blood Urea Nitrogen 2 mg/dL (7-18); Calcium 7.4 mg/dL (8.5-10.1); Carbon Dioxide 20.4 meq/L (21.0-32.0); Chloride 118 meq/L (98-107); Glomerular Filtration Rate Greater Than 89 mL/min (>89); Glucose,Random 76 mg/dL (74-106); Magnesium 1.8 mg/dL (1.5-2.5); Potassium 3.7 meq/L (3.5-5.1); Sodium 144 meq/L (136-145)
--- NOTE | 2018-12-03 09:50 | P.PNIM ---
Subjective Interval history: Patient reports a total of five BMs yesterday Physical Exam Vital signs: Last Vital Signs Temp 98.7 F 12/03/18 00:00 Pulse 90 12/03/18 00:00 Resp 18 12/03/18 00:00 BP 142/81 H 12/03/18 00:00 Pulse Ox 97 12/03/18 00:00 Narrative: GENERAL: This is a, well-developed 78 year old female, in no apparent distress. SKIN: large unstable ulceration bilateral buttock CARDIOVASCULAR: Regular rate and rhythm RESPIRATORY: Clear to auscultation. Breath sounds equal bilaterally. GASTROINTESTINAL: Abdomen soft, non-tender, nondistended. Normal active bowel sounds MUSCULOSKELETAL: Extremities without clubbing, cyanosis, or edema. NEURO: Alert & Oriented. Moves all ext x4 Results Labs CBC & Chem 7: 12/04/18 05:35 12/04/18 05:35 Assessment and Plan Assessment (1) Difficulty in swallowing: Code(s): R13.10 - Dysphagia, unspecified Status: Acute (2) Dysphagia: Code(s): R13.10 - Dysphagia, unspecified Status: Acute (3) C. difficile colitis: Code(s): A04.72 - Enterocolitis due to Clostridium difficile, not specified as recurrent Status: Acute (4) Gastroparesis: Code(s): K31.84 - Gastroparesis Status: Acute Plan This is a 77-year-old female patient with past medical history which includes atrial fibrillation, CKD stage 3, colitis, degenerative disc disease, GERD, hiatal hernia, hypertension, hyperlipidemia, inflammatory polyarthropathy and TIA. In 07/2018 patient fell at home fracturing right femur and Left olecranon s/p repair. Patient has been residing in SNF since fall 07/2018. C diff Patient presented to the ER due to AMS, lack of appetite and loose stools In talking to patient and her daughter, patient had C diff and completed PO Flagyl 1 week ago. The diarrhea started again Monday 11/27. C -diff positive 027 positive Stop current Abx (aztreonam and Levaquin) continue Vancomycin 125 mg PO QID ID also following added Dificid 200mg PO BID (12/01 - 12/11) buttock wound --> MRSA blood culutre --> staphylococcus capitis-capitis - consult Infectious Disease - consult Palliative Care Dysphagia ? esophageal stenosis hx gastroporesis Consult to GI, appreciate input Patient reports that she has seen Dr. Freed in the past and has had esophageal dilations in the past Barium Swallow X-Ray 12/01/18 Limited barium swallow performed in lateral projection while sitting in chair demonstrates normal mucosal pattern to the esophagus, prompt passage of barium into the stomach, and some narrowing at the GE junction. Videofluoroscopic Swallow No episodes of aspiration observed. Plan for EGD Tuesday Eliquis ion hold for EGD Acute alteration in mental status - improving Likely due to sepsis with underlying dehydration. Improving with IVF. NAVIN (acute kidney injury) on CKD stage 3 Has not been eating/drinking much for the last few days. On admission BUN 37, creatintine 1.65 and GFR 30 recheck 11/29 BUN 32, creatinine 1.01 and GFR 53 Anemia chronic and relatively stable. Likely due to chronic illness. Follow. Pressure ulcer, large will offset pressure Consult wound care request specialty mattress Hypertension patient hypotensive initally Metoprolol 50mg BID Atrial fibrillation- rate controlled continue Eliquis in the past Hypokalemia potassium 3.3 (12/01) potassium (12/02) 2.8 (12/03) potassium 3.7 DVT prophylaxis patient on Eliquis Plan to DC after EGD tomorrow Attending Attestation The exam, history, and the medical decision-making described in the above note were completed with the assistance of the mid-level provider. I reviewed and agree with the findings presented. I attest that I had a [id number] encounter with the patient on the same day, and personally performed and documented my assessment and findings in the medical record. Patient examined. Assessment and plan formulated with Abby Gay PA-C. I agree with the above. Fewer bowel movements. Progress Note: Quality VTE Deep Vein Thrombosis/Pulmonary Embolism Present on Admission: No _ (1) Difficulty in swallowing Qualifiers: Dysphagia type: (2) Dysphagia Qualifiers: Dysphagia type:
--- NOTE | 2018-12-03 10:08 | XR ---
EXAM DATE: 12/03/2018 9:58 AM EST AGE/SEX: 78 years / Female INDICATIONS: Cough CLINICAL DATA: This is the patient's subsequent encounter. Patient reports that signs and symptoms h ave been present for 3 days and indicates a pain score of 0/10. MEDICAL/SURGICAL HISTORY: . Arthritis. Gastroparesis. Hypertension. A-fib. . . Hysterectomy. Fusion, lumbar. Cholecystectomy. Cardiac ablation. [place] [facility] [place]. . FINDINGS: A single AP view of the chest demonstrates the lungs to be symmetrically aerated without evidence of mass, infiltrate or effusion. The cardiomediastinal contours are unremarkable. Osseous structures a re intact. CONCLUSION: No acute cardiopulmonary disease. Resolution of previously identified left lower lobe density. Electronically signed by: Wilbur Fabian MD Board Certified Radiologist 12/03/2018 10:06 AM EST
[2018-12-03 10:11] LABS: Eosinophils 3 % (0-4); Lymphocytes 18 % (9-44); Monocytes 6 % (0-8)
[2018-12-03 10:12] LABS: Ovalocytes 1+; Platelet Estimate Normal (Normal); Platelet Morphology Normal (Normal); Tear Drop Cells 1+
[2018-12-03] MEDS: Metoprolol Tartrate 50 MG Tablet PO SCH ×2 (10:18→21:00)
[2018-12-03] MEDS: predniSONE 5 MG Tablet PO SCH (10:19)
[2018-12-03] MEDS: Folic Acid 1 MG Tablet PO SCH (10:19)
[2018-12-03] MEDS: Gabapentin 100 MG Capsule PO SCH ×2 (10:19→21:00)
--- NOTE | 2018-12-03 14:06 | P.PNGI ---
Physical Exam Vital signs: Vital Signs 12/02/18 16:00 12/02/18 20:00 12/03/18 00:00 Temperature 98.6 F 99.2 F 98.7 F Pulse Rate 90 96 H 90 Respiratory Rate 18 18 18 Blood Pressure 180/82 H 162/78 H 142/81 H Pulse Oximetry 99 100 97 12/03/18 08:00 12/03/18 12:00 Temperature 98.2 F 97.9 F Pulse Rate 98 H 71 Respiratory Rate 19 18 Blood Pressure 153/83 H 132/70 Pulse Oximetry 96 99 Intake & Output 12/02/18 12/03/18 12/03/18 18:59 06:59 18:59 Intake Total 1100 / 1100 1200 / 1200 Balance 1100 / 1100 1200 / 1200 Weight 78.8 kg Intake: IV 1100 / 1100 1000 / 1000 NS Inj 1,000 ML @ 84 mls/hr IV. 1000 / 1000 1000 / 1000 CONT .[id number] [facility] Rx#:[id number] KCl 20 mEq Premix Inj 20 meq In 100 / 100 100 ml @ 50 mls/hr IV.SIG ONCE ONE Rx#:[id number] Oral 200 / 200 Other: # Voids 3 Date of Last Bowel Movement 12/02/18 # Bowel Movements 2 # Incontinent Bowel Movements 4 - Urinary Catheter Management Indwelling Urethral Catheter Cath placed during this visit: yes Reason for continuing: Hourly intake/output Insertion date: 11/28/18 Insertion time: 19:06 <Alva Clark - Last Filed: 12/03/18 14:01> Vital signs: Vital Signs 12/02/18 16:00 12/02/18 20:00 12/03/18 00:00 Temperature 98.6 F 99.2 F 98.7 F Pulse Rate 90 96 H 90 Respiratory Rate 18 18 18 Blood Pressure 180/82 H 162/78 H 142/81 H Pulse Oximetry 99 100 97 12/03/18 08:00 12/03/18 12:00 Temperature 98.2 F 97.9 F Pulse Rate 98 H 71 Respiratory Rate 19 18 Blood Pressure 153/83 H 132/70 Pulse Oximetry 96 99 Intake & Output 12/02/18 12/03/18 12/03/18 18:59 06:59 18:59 Intake Total 1100 / 1100 1200 / 1200 Balance 1100 / 1100 1200 / 1200 Weight 78.8 kg Intake: IV 1100 / 1100 1000 / 1000 NS Inj 1,000 ML @ 84 mls/hr IV. 1000 / 1000 1000 / 1000 CONT .[id number] [facility] Rx#:[id number] KCl 20 mEq Premix Inj 20 meq In 100 / 100 100 ml @ 50 mls/hr IV.SIG ONCE ONE Rx#:[id number] Oral 200 / 200 Other: # Voids 3 Date of Last Bowel Movement 12/02/18 # Bowel Movements 2 # Incontinent Bowel Movements 4 - Urinary Catheter Management Indwelling Urethral Catheter Cath placed during this visit: no <RonSpringer - Last Filed: 12/03/18 15:48> Results - Labs CBC & Chem 7: 12/03/18 07:30 12/03/18 07:30 Laboratory Results - last 24 hr 12/02/18 12/03/18 12/03/18 19:10 07:30 07:30 WBC 1.3 L RBC 2.69 L Hgb 9.1 L Hct 27.4 L MCV 101.7 H MCH 33.9 MCHC 33.4 RDW 21.8 H Plt Count 196 MPV 7.1 Prelim Diff (Auto) Manual diff required WBC Differential Manual diff final Seg Neuts % (Manual) 65 Band Neuts % (Manual) 7 H Lymphocytes % (Manual) 18 Monocytes % (Manual) 6 Eosinophils % (Manual) 3 Basophils % (Manual) 1 Abs Neuts (Manual) 0.9 L Differential Comment . Platelet Estimate Normal Platelet Morphology Normal Tear Drop Cells 1+ H Ovalocytes 1+ H Sodium 144 Potassium 3.6 D 3.7 Chloride 118 H Carbon Dioxide 20.4 L Anion Gap 6 BUN 2 L Creatinine 0.46 L Estimated GFR Greater than 89 Random Glucose 76 Calcium 7.4 L* Calcium Adj for Albumin 9.0 Magnesium 1.8 Albumin 2.0 L Microbiology 11/28/18 18:39 Blood - Peripheral Aerobic Blood Culture - Final No growth in 5 days 11/28/18 18:39 Blood - Peripheral Anaerobic Blood Culture - Final No growth in 5 days 11/28/18 18:48 Blood - Peripheral Aerobic Blood Culture - Final Staphylococcus capitis-capitis 11/28/18 18:48 Blood - Peripheral Anaerobic Blood Culture - Final No growth in 5 days - Imaging Impressions Chest X-Ray 12/03/18 00:00 CONCLUSION: No acute cardiopulmonary disease. Resolution of previously identified left lower lobe density. <Alva Clark - Last Filed: 12/03/18 14:01> - Labs CBC & Chem 7: 12/03/18 07:30 12/03/18 07:30 Laboratory Results - last 24 hr 12/02/18 12/03/18 12/03/18 19:10 07:30 07:30 WBC 1.3 L RBC 2.69 L Hgb 9.1 L Hct 27.4 L MCV 101.7 H MCH 33.9 MCHC 33.4 RDW 21.8 H Plt Count 196 MPV 7.1 Prelim Diff (Auto) Manual diff required WBC Differential Manual diff final Seg Neuts % (Manual) 65 Band Neuts % (Manual) 7 H Lymphocytes % (Manual) 18 Monocytes % (Manual) 6 Eosinophils % (Manual) 3 Basophils % (Manual) 1 Abs Neuts (Manual) 0.9 L Differential Comment . Platelet Estimate Normal Platelet Morphology Normal Tear Drop Cells 1+ H Ovalocytes 1+ H Sodium 144 Potassium 3.6 D 3.7 Chloride 118 H Carbon Dioxide 20.4 L Anion Gap 6 BUN 2 L Creatinine 0.46 L Estimated GFR Greater than 89 Random Glucose 76 Calcium 7.4 L* Calcium Adj for Albumin 9.0 Magnesium 1.8 Albumin 2.0 L Microbiology 11/28/18 18:39 Blood - Peripheral Aerobic Blood Culture - Final No growth in 5 days 11/28/18 18:39 Blood - Peripheral Anaerobic Blood Culture - Final No growth in 5 days 11/28/18 18:48 Blood - Peripheral Aerobic Blood Culture - Final Staphylococcus capitis-capitis 11/28/18 18:48 Blood - Peripheral Anaerobic Blood Culture - Final No growth in 5 days - Imaging Impressions Chest X-Ray 12/03/18 00:00 CONCLUSION: No acute cardiopulmonary disease. Resolution of previously identified left lower lobe density. <Gian Velasquez - Last Filed: 12/03/18 15:48> Assessment and Plan (1) Difficulty in swallowing Status: Acute Code(s): R13.10 - Dysphagia, unspecified (2) Dysphagia Status: Acute Code(s): R13.10 - Dysphagia, unspecified (3) C. difficile colitis Status: Acute Code(s): A04.72 - Enterocolitis due to Clostridium difficile, not specified as recurrent (4) Gastroparesis Status: Acute Code(s): K31.84 - Gastroparesis - Plan Dysphagia Patient endorses 2-3 months onset of difficulty swallowing pills. Patient states symptoms include gagging and feeling as though medication is stuck in throat. Patient denies difficulty with solid foods or liquids. History of diabetes along with gastroparesis. Presently diagnosed positive for C. difficile toxin. Frequent loose brown stools reported by nursing staff. Of note, patient currently taking Eliquis twice daily for atrial fibrillation. 12/01/2018 Assessment C. difficile colitis Dysphagia Diabetes with gastroparesis On Eliquis for atrial fibrillation Modified barium swallow showed no aspiration. A modified barium swallow was performed with speech pathology. Patient was given a variety of liquids to swallow. On some of the swallows, there is pooling of contrast in the vallecula and piriform sinuses. On one episode, there was penetration into the upper airway, but the contrast does not extend below the vocal cords folds. CONCLUSION: No episodes of aspiration observed. Barium swallow revealed Limited barium swallow performed in lateral projection while sitting in chair demonstrates normal mucosal pattern to the esophagus, prompt passage of barium into the stomach, and some narrowing at the GE junction. 12/02/2018 C. difficile colitis Dysphagia Diabetes with gastroparesis On Eliquis for atrial fibrillation Hypokalemia potassium 2.8 Hemoglobin 9.1 hematocrit 27.9 platelets 237 12/03/2018, patient has decreased diarrhea stools today less than 5 and still has active treatment for C. difficile colitis. Patient notes decreased appetite with some nausea but no vomiting. Current WBC count mildly decreased with leukopenia 1.3, and hemoglobin 9.1. Patient chief complaint is some dysphasia even with liquids so discussed with her plan for EGD with dilation tomorrow. Patient agreed with the plan. Patient has some generalized weakness and fatigue, further recommendations to follow after procedure. Also discussed with her follow-up needed in the office and once she is feeling better plan for colonoscopy. Gastroparesis, discuss slow eating and 4-6 meals a day. Patient had initially been on azithromycin for her gastroparesis which could have contributed to her C. difficile colitis. Plan Diet as tolerated, reflux precautions with special attention to eating and drinking very slow chewing food well, as well as 4-6 small meals a day Consent for EGD with dilation in a.m. N.p.o. at midnight PPI, vancomycin p.o. and Flagyl Eliquis on hold Bowel regimen Further recommendations to follow Patient was seen per myself and Dr. Velasquez, note was written on his behalf <Alva Clark - Last Filed: 12/03/18 14:01> (1) Difficulty in swallowing Status: Acute Code(s): R13.10 - Dysphagia, unspecified (2) Dysphagia Status: Acute Code(s): R13.10 - Dysphagia, unspecified (3) C. difficile colitis Status: Acute Code(s): A04.72 - Enterocolitis due to Clostridium difficile, not specified as recurrent (4) Gastroparesis Status: Acute Code(s): K31.84 - Gastroparesis - Plan Seen and examined with [employer], EGD/Dil planned for tomorrow. Eliquis on hold. <Gian Velasquez - Last Filed: 12/03/18 15:48>
[2018-12-03] MEDS ORDERED: Sodium Chloride 0.65% Nasal Spray 45 ML Bottle EACH NARE PRN (15:00)
[2018-12-03] MEDS: Pantoprazole Inj 40 MG Vial IV.PUSH SCH (17:35)
[2018-12-03] MEDS: ALPRAZolam 0.5 MG Tablet PO SCH (20:59)
[2018-12-03] MEDS: Loratadine/Pseudoephedrine 12HR Tablet PO SCH (21:00)
[2018-12-03] MEDS: Pregabalin 75 MG Capsule PO SCH (21:00)
[2018-12-04] MEDS: Propafenone 150 MG Tablet PO SCH ×4 (05:17→22:39)
[2018-12-04] MEDS: Sod Chloride 0.9% Inj 1,000 ML IV.CONT SCH ×2 (05:20→20:33)
[2018-12-04 07:24] LABS: Baso % (Auto) 1.5 % (0.0-2.0); Eos # (Auto) 0.2 th/mm3 (0.0-0.4); Eos % (Auto) 10.7 % (0.0-4.0); Hematocrit 27.2 % (35.0-46.0); Hemoglobin 8.6 gm/dL (11.6-15.3); Lymph # (Auto) 0.4 th/mm3 (1.0-4.8); Lymph % (Auto) 26.2 % (9.0-44.0); Mean Corpuscular HGB Conc 31.7 % (32.0-36.0); Mean Corpuscular Hemoglobin 32.2 pg (27.0-34.0); Mean Corpuscular Volume 101.4 fL (80.0-100.0); Mean Platelet Volume 7.1 fL (7.0-11.0); Mono # (Auto) 0.1 th/mm3 (0.0-0.9); Mono % (Auto) 6.2 % (0.0-8.0); Neut # (Auto) 0.9 th/mm3 (1.8-7.7); Neut % (Auto) 55.4 % (16.0-70.0); Platelet Count 186 th/mm3 (150-450); Red Blood Count 2.69 mil/mm3 (4.00-5.30); Red Cell Distribution Width 22.6 % (11.6-17.2); White Blood Count 1.6 th/mm3 (4.0-11.0)
[2018-12-04 08:10] LABS: Anion Gap 7 meq/L (5-15); Blood Urea Nitrogen 2 mg/dL (7-18); Calcium 7.3 mg/dL (8.5-10.1); Carbon Dioxide 20.3 meq/L (21.0-32.0); Chloride 116 meq/L (98-107); Glomerular Filtration Rate Greater Than 89 mL/min (>89); Glucose,Random 71 mg/dL (74-106); Magnesium 1.7 mg/dL (1.5-2.5); Potassium 3.3 meq/L (3.5-5.1); Sodium 143 meq/L (136-145)
[2018-12-04 08:18] LABS: Albumin 1.9 g/dL (3.4-5.0)
[2018-12-04 08:22] LABS: Eosinophils 2 % (0-4); Lymphocytes 13 % (9-44); Monocytes 7 % (0-8); Myelocytes 3 % (0-0)
[2018-12-04 08:23] LABS: Burr Cells 1+; Dimorphic RBC Present; Ovalocytes 1+; Platelet Estimate Normal (Normal); Platelet Morphology Normal (Normal)
[2018-12-04] MEDS: Folic Acid 1 MG Tablet PO SCH (08:51)
[2018-12-04] MEDS: Gabapentin 100 MG Capsule PO SCH ×2 (08:51→20:29)
[2018-12-04] MEDS: predniSONE 5 MG Tablet PO SCH (08:51)
[2018-12-04] MEDS: Metoprolol Tartrate 50 MG Tablet PO SCH ×2 (08:51→20:29)
[2018-12-04] MEDS: Loratadine/Pseudoephedrine 12HR Tablet PO SCH ×2 (08:51→20:30)
--- NOTE | 2018-12-04 08:54 | P.PNIM ---
Subjective Interval history: Patient reports no BMs overnight looking forward to EGD with dilation also looking forward to DC to rehab for PT Physical Exam Vital signs: Last Vital Signs Temp 98.3 F 12/04/18 04:00 Pulse 73 12/04/18 04:00 Resp 16 12/04/18 06:46 BP 141/72 H 12/04/18 04:00 Pulse Ox 98 12/04/18 04:00 Narrative: GENERAL: This is a, well-developed 78 year old female, in no apparent distress. SKIN: large unstable ulceration bilateral buttock CARDIOVASCULAR: Regular rate and rhythm RESPIRATORY: Clear to auscultation. Breath sounds equal bilaterally. GASTROINTESTINAL: Abdomen soft, non-tender, nondistended. Normal active bowel sounds MUSCULOSKELETAL: Extremities without clubbing, cyanosis, or edema. NEURO: Alert & Oriented. Moves all ext x4 Results Labs CBC & Chem 7: 12/04/18 05:35 12/04/18 05:35 Assessment and Plan Assessment (1) Difficulty in swallowing: Code(s): R13.10 - Dysphagia, unspecified Status: Acute (2) Dysphagia: Code(s): R13.10 - Dysphagia, unspecified Status: Acute (3) C. difficile colitis: Code(s): A04.72 - Enterocolitis due to Clostridium difficile, not specified as recurrent Status: Acute (4) Gastroparesis: Code(s): K31.84 - Gastroparesis Status: Acute Plan This is a 77-year-old female patient with past medical history which includes atrial fibrillation, CKD stage 3, colitis, degenerative disc disease, GERD, hiatal hernia, hypertension, hyperlipidemia, inflammatory polyarthropathy and TIA. In 07/2018 patient fell at home fracturing right femur and Left olecranon s/p repair. Patient has been residing in SNF since 07/2018. C diff Patient presented to the ER due to AMS, lack of appetite and loose stools In talking to patient and her daughter, patient had C diff and completed PO Flagyl 1 week ago. The diarrhea started again Monday 11/27. C -diff positive 027 positive Stop current Abx (aztreonam and Levaquin) continue Vancomycin 125 mg PO QID ID also following added Dificid 200mg PO BID (12/01 - 12/11) buttock wound --> MRSA blood culutre --> staphylococcus capitis-capitis - consult Infectious Disease - consult Palliative Care Dysphagia ? esophageal stenosis hx gastroporesis Consult to GI, appreciate input Patient reports that she has seen Dr. Freed in the past and has had esophageal dilations in the past Barium Swallow X-Ray 12/01/18 Limited barium swallow performed in lateral projection while sitting in chair demonstrates normal mucosal pattern to the esophagus, prompt passage of barium into the stomach, and some narrowing at the GE junction. Videofluoroscopic Swallow No episodes of aspiration observed. Plan for EGD today Eliquis ion hold for EGD Acute alteration in mental status - improving Likely due to sepsis with underlying dehydration. Improving with IVF. NAVIN (acute kidney injury) on CKD stage 3 Has not been eating/drinking much for the last few days. On admission BUN 37, creatintine 1.65 and GFR 30 recheck 11/29 BUN 32, creatinine 1.01 and GFR 53 Anemia chronic and relatively stable. Likely due to chronic illness. Follow. Pressure ulcer, large will offset pressure Consult wound care request specialty mattress Hypertension patient hypotensive initially Metoprolol 50mg BID Atrial fibrillation- rate controlled continue Eliquis in the past Hypokalemia potassium 3.3 (12/01) potassium (12/02) 2.8 (12/03) potassium 3.7 (12/04) potassium 3.3 replaced DVT prophylaxis patient on Eliquis Possible DC after EGD late today or tomorrow Progress Note: Quality VTE Deep Vein Thrombosis/Pulmonary Embolism Present on Admission: No _ (1) Difficulty in swallowing Qualifiers: Dysphagia type: (2) Dysphagia Qualifiers: Dysphagia type:
--- NOTE | 2018-12-04 10:19 | P.DS ---
Addendum entered and electronically signed by BECCA Floyd 09:49: Correction EKG in AM 12/05/18 QTC 398 Original Note: DS: Providers Date of admission: 11/28/18 19:48 Primary care physician: UNKNOWN Consults: 11/29/18 12:50 HUB Only Consult Order Routine Consulting Provider: [facility] 11/30/18 10:34 Consult to Gastroenterology Routine Consulting Provider: Norris Mcgee V Reason for Consultation: difficult swallowing Notified:: Office Spoke with:: Sanjeev Date Notified:: 11/30/18 Time Notified:: 10:47 Comments:: Ordering Provider: ESTELA 11/30/18 18:00 Consult to Infectious Diseases Routine Consulting Provider: Marylin Caicedo Reason for Consultation: - recurrent c.dif - MRSA buttock wound - staph bacteremia Notified:: Service Spoke with:: Sobeida Date Notified:: 11/30/18 Time Notified:: 18:34 Ordering Provider: KAYLYNN Consult to Palliative Care Routine Consulting Provider: Vivi Harrison Reason for Consultation: clarification of goals Notified:: Service Spoke with:: Sobeida Date Notified:: 11/30/18 Time Notified:: 18:34 Ordering Provider: KAYLYNN Brief History from admission: 78 year old female presents to the ED via [facility] for c/o malaise and fatigue that started last night. She has been residing in a nursing facility for rehab after a femur and ulnar fracture since 07/2018. She only began ambulating minimally recently. She states she has been falling asleep during conversations and this morning she was given her morning medications and fell asleep with them in her hand. Her daughter who is at bedside reports that patient's blood pressure was quite low at the facility, reported as 82/57 earlier today. Patient's roommate has been coughing a lot but the patient has not been coughing. Patient is not been eating much over the last 2 days. She has had no vomiting. Denies any diarrhea but did have one episode of loose stool while here in the ER tonight. She denies chest pain , abdominal pain or SOB. Admits that she felt similar last time she had a UTI. She states she has two bed sores on her buttock and wound care at the facility was reportedly consulted within the last day or so. Admits to intermittent sweats and chills today. She has been given IV fluids and IV antibiotics have been initiated here due to concerns for possible sepsis as chest x-ray revealed pneumonia and the patient's blood pressure was systolically in the 90s. Her systolic blood pressure on my exam was 101 with a heart rate in the 80s. Patient reports she is feeling better and stronger now. Patient is much more responsive now per her own report and per her daughter's report. DS: Diagnosis Discharge Diagnosis (1) Difficulty in swallowing: Status: Acute (2) Dysphagia: Status: Acute (3) C. difficile colitis: Status: Acute (4) Gastroparesis: Status: Acute DS: Summary This is a 77-year-old female patient with past medical history which includes atrial fibrillation, CKD stage 3, colitis, degenerative disc disease, GERD, hiatal hernia, hypertension, hyperlipidemia, inflammatory polyarthropathy and TIA. In 07/2018 patient fell at home fracturing right femur and Left olecranon s/p repair. Patient has been residing in SNF since 07/2018. C diff Patient presented to the ER due to AMS, lack of appetite and loose stools In talking to patient and her daughter, patient had C diff and completed PO Flagyl 1 week ago. The diarrhea started again Monday 11/27. C -diff positive 027 positive Stop current Abx (aztreonam and Levaquin) continue Vancomycin 125 mg PO QID ID also following added Dificid 200mg PO BID (12/01 - 12/11) buttock wound --> MRSA, per likely colonized blood culture --> staphylococcus capitis-capitis per ID likely pseudo-bacteremia - consult Infectious Disease, appreciate assistance - consult Palliative Care Dysphagia ? esophageal stenosis hx gastroporesis Consult to GI, appreciate input Patient reports that she has seen Dr. Freed in the past and has had esophageal dilations in the past Barium Swallow X-Ray 12/01/18 Limited barium swallow performed in lateral projection while sitting in chair demonstrates normal mucosal pattern to the esophagus, prompt passage of barium into the stomach, and some narrowing at the GE junction. Videofluoroscopic Swallow No episodes of aspiration observed. Plan for EGD with dilation 12/04 Eliquis ion hold for EGD Esophageal candidiasis 1. White exudates consistent with candidiasis in the distal esophagus and mid esophagus 2. There was a short stricture 33 cm from the incisors; Using a TTS-balloon the stricture was dilated up to 18mm 3. Normal duodenal mucosa in the entire duodenum 4. Retroflexed views revealed a hiatal hernia Patient stated on Diflucan 200 mg PO daily for a total of 14 days EKG in AM 12/05/18 QTC 391 Zofran DC'd Acute alteration in mental status - improving Likely due to sepsis with underlying dehydration. Improving with IVF. NAVIN (acute kidney injury) on CKD stage 3 Has not been eating/drinking much for the last few days. On admission BUN 37, creatintine 1.65 and GFR 30 recheck 11/29 BUN 32, creatinine 1.01 and GFR 53 Anemia chronic and relatively stable. Likely due to chronic illness. Follow. Pressure ulcer, large will offset pressure Consult wound care request specialty mattress Hypertension patient hypotensive initially Metoprolol 50mg BID Atrial fibrillation- rate controlled continue Eliquis in the past Hypokalemia potassium 3.3 (12/01) potassium (12/02) 2.8 (12/03) potassium 3.7 (12/04) potassium 3.3 replaced DVT prophylaxis patient on Eliquis Time Spent with Patient Total time spent providing and/or coordinating discharge services: Quality: VTE Deep Vein Thrombosis/Pulmonary Embolism Present on Admission: No Exam Narrative Exam Narrative: GENERAL: This is a, well-developed 78 year old female, in no apparent distress. SKIN: large unstable ulceration bilateral buttock CARDIOVASCULAR: Regular rate and rhythm RESPIRATORY: Clear to auscultation. Breath sounds equal bilaterally. GASTROINTESTINAL: Abdomen soft, non-tender, nondistended. Normal active bowel sounds MUSCULOSKELETAL: Extremities without clubbing, cyanosis, or edema. NEURO: Alert & Oriented. Moves all ext x4 Results Labs on day of discharge: Labs from last 24 hours 12/04/18 12/04/18 05:35 05:35 WBC 1.6 L RBC 2.69 L Hgb 8.6 L Hct 27.2 L MCV 101.4 H MCH 32.2 MCHC 31.7 L RDW 22.6 H Plt Count 186 MPV 7.1 Prelim Diff (Auto) Slide review pending Neut % (Auto) 55.4 Lymph % (Auto) 26.2 [place] % (Auto) 6.2 Eos % (Auto) 10.7 H Baso % (Auto) 1.5 Neut # (Auto) 0.9 L Lymph # (Auto) 0.4 L [place] # (Auto) 0.1 Eos # (Auto) 0.2 Baso # (Auto) 0.0 WBC Differential Manual diff final Seg Neuts % (Manual) 62 Band Neuts % (Manual) 12 H Lymphocytes % (Manual) 13 Monocytes % (Manual) 7 Eosinophils % (Manual) 2 Basophils % (Manual) 1 Myelocytes % (Man) 3 H Abs Neuts (Manual) 1.2 L Differential Comment . Platelet Estimate Normal Platelet Morphology Normal Dimorphic RBCs Present H Ovalocytes 1+ H Stephan Cells 1+ H Sodium 143 Potassium 3.3 L Chloride 116 H Carbon Dioxide 20.3 L Anion Gap 7 BUN 2 L Creatinine 0.42 L Estimated GFR Greater than 89 Random Glucose 71 L Calcium 7.3 L* Calcium Adj for Albumin 9.0 Magnesium 1.7 Albumin 1.9 L Impressions ITS Impressions Head CT 11/28/18 17:30 CONCLUSION: 1. No acute findings in the brain. 2. Opacification or fluid in the sphenoid sinus. . Barium Swallow X-Ray 12/01/18 00:00 CONCLUSION: Limited barium swallow performed in lateral projection while sitting in chair demonstrates normal mucosal pattern to the esophagus, prompt passage of barium into the stomach, and some narrowing at the GE junction. Videofluoroscopic Swallow 12/01/18 00:00 CONCLUSION: No episodes of aspiration observed. Chest X-Ray 12/03/18 00:00 CONCLUSION: No acute cardiopulmonary disease. Resolution of previously identified left lower lobe density.
--- NOTE | 2018-12-04 11:07 | P.DIET ---
Nutritional Evaluation Type of nutrition evaluation: initial Nutrition screening: Weight Loss > 10 lbs Subjective Subjective Comments: Poor appetite and difficulty swallowing reported. Eating 25-75% of meals in hospital. Objective - Diagnosis Acute Pneumonia, AMS - Objective % IBW: 145 (IBW = 120#) Body Weight Used for Calculations: Upper end of IBW (60 kg) Energy Needs - Lower Range (kCal/kg): 25 Energy Needs - Upper Range (kCal/kg): 30 Lower Limit kCal/kg (kCals): 1,500 Upper Limit kCal/kg (kCals): 1,800 Lower Limit Protein Factor (Grams per Kg): 1.0 Upper Limit Protein Factor (Grams per Kg): 1.5 Lower Protein Needs (Protein): 60 Upper Protein Needs (Protein): 90 Dietitian Reviewed in 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: Current diet, Curent medications, Intake & Output, Labs, Medical history Diet Order: cardiac with Ensure tid Speech Therapy Recommendations: Yes (reg/thin liqs) Objective Comments: Hx includes gastroparesis, C Diff Meds include Questran, Vit B12, Folic Acid, prednisone, Vit D3 Assessment Assessment: Pt is at high nutritional risk 2' to dx and unintentional weight loss. She is npo today for EGD. RD will monitor the results, monitor po intake and assess the need for further supplementation. Pt is currently receiving Ensure tid: 250 kcals and 9 gms protein per 8 oz serving. Recommendations: Continue current POC RD following Dietitian to Monitor: Lab values, Supplement acceptance, Intake & Output, Diet tolerance, Weight change, PO Intake, Medical course
[2018-12-04] MEDS ORDERED: Lidocaine PF 1% Inj 5 ML Syringe OTHER ONE (11:14)
[2018-12-04] MEDS ORDERED: Succinylcholine Inj 100 MG/5 ML Syringe IV.PUSH ONE (11:14)
--- NOTE | 2018-12-04 11:46 | GIPROC ---
[facility] [address]. [facility], [id number] EGD PROCEDURE REPORT EXAM DATE: 12/04/2018 PATIENT NAME: Ting Marr MR #: [id number] BIRTHDATE: 1940 ATTENDING: Norris Mcgee MD ORDER #: [id number] CORPORATE STRATEGY INTERN: Nathalie Sheldon and Laquita Tierney STATUS: inpatient INDICATIONS: The patient is a 78 yr old female here for an EGD due to dysphagia PROCEDURE PERFORMED: EGD w/ biopsy EGD w/ balloon dilation of esophagus MEDICATIONS: Per Anesthesia and None. TOPICAL ANESTHETIC: none CONSENT: The patient understands the risks and benefits of the procedure and understands that these risks include, but are not limited to: sedation, allergic reaction, infection, perforation and/or bleeding. Alternative means of evaluation and treatment include, among others: physical exam, x-rays, and/or surgical intervention. The patient elects to proceed with this endoscopic procedure. medical equipment was checked for proper function. Hand hygiene and appropriate measures for infection prevention was taken. After the risks, benefits and alternatives of the procedure were thoroughly explained, Informed consent was verified, confirmed and timeout was successfully executed by the treatment team. The patient was anesthetized with topical anesthesia and the Pentax [id number] endoscope was introduced through the mouth and advanced to the second portion of the duodenum. Retroflexed views revealed a hiatal hernia The gastroscope was then slowly withdrawn and removed. Multiple biopsies were performed. ESOPHAGUS: White exudates consistent with candidiasis were found in the distal esophagus and mid esophagus. There was a short benign appearing stricture 33 cm from the incisors. The stricture was traversable with resistance. Using a TTS-balloon the stricture was dilated up to 18mm. DUODENUM: The duodenal mucosa appeared normal in the entire duodenum. ADVERSE EVENTS: There were no complications. IMPRESSIONS: 1. White exudates consistent with candidiasis in the distal esophagus and mid esophagus 2. There was a short stricture 33 cm from the incisors; Using a TTS-balloon the stricture was dilated up to 18mm 3. Normal duodenal mucosa in the entire duodenum 4. Retroflexed views revealed a hiatal hernia RECOMMENDATIONS: Await biopsy results. Biopsy results will not be ready for 7-10 days. If you don't hear from us in two weeks, call our office for biopsy results. PATIENT CONDITION: stable DISPOSITION: Inpatient REPEAT EXAM: Return as needed for EGD Norris Mcgee MD eSigned: Norris Mcgee MD 12/04/2018 11:46 AM cc: PATIENT NAME: Ting Marr MR#: [id number]
[2018-12-04] MEDS: Pantoprazole Inj 40 MG Vial IV.PUSH SCH (14:23)
--- NOTE | 2018-12-04 16:13 | P.PNPAL ---
Reason for Visit Reason for visit: a. To assist with evaluation and management of symptoms including: Pain, dysphagia, debility b. To assist medical decision maker(s) with: better understanding of current medical conditions; weighing benefits/burdens of medical treatment options; making medical treatment decisions. Subjective Subjective/Interval History: Follow-up medically necessary for symptom management and further clarification of goals of medical treatment. Patient seen and examined in your room. Patient is awake, alert oriented to self, place and situation. Patient currently denying pain or discomfort. Patient is not is lethargic as she was on 12/01/18. Patient reports less episodes of diarrhea. Patient underwent EGD on 12/04/18 which showed white exudates consistent with candidiasis in the distal esophagus and mid esophagus, hiatal hernia and normal duodenal mucosa. Dilatation of a short stricture was performed. Patient remembered palliative care visit on Tuesday. Patient states that she had a discussion with her adult son and daughter regarding her CODE STATUS. Patient had made herself a DNR on 12/01/18. Patient stated after discussing with her children, she has decided to be a full code. Patient states that she would want everything done to keep your life in she has expressed her wishes to her children who will know when to to stop aggressive treatment if patient is not showing improvement. Patient has a good understanding of what full code entails. She explains how her was a DNR and how in his case it was appropriate since he had pulmonary hypertension. Encouraged patient to continue further discussions regarding her wishes with his children. Case discussed with bedside RN and supportive employment case manager. Plan is for patient to be discharged back to SNF late 12/04/18 or 12/05/18. . Family/Friend Interactions: No family at bedside. . Advance Directives Living Will: Completed, but not made available Health Care Surrogate: Completed, but not made available Durable Power of Career Coach: Completed, but not made available Health Care Surrogate Name and Number: Stated: HCS:Jd Marr Alt: Esme Chandra Documented care wishes:: Patient states that she has completed a living will, no copy made available at this time. . Significant change in goals:: Patient has rescinded her DNR status. She is now a full code. . Objective Vital Signs: Vital Signs 12/03/18 16:00 12/03/18 20:00 12/03/18 21:30 Temperature 98.9 F 99.2 F Pulse Rate 78 82 Respiratory Rate 19 18 Blood Pressure 162/81 H 153/80 H Pulse Oximetry 100 100 99 12/03/18 23:06 12/04/18 00:00 12/04/18 04:00 Temperature 98.4 F 98.3 F Pulse Rate 67 73 Respiratory Rate 16 18 18 Blood Pressure 133/64 141/72 H Pulse Oximetry 99 98 12/04/18 06:46 12/04/18 08:00 12/04/18 10:15 Temperature 99 F Pulse Rate 74 Respiratory Rate 16 16 Blood Pressure 150/73 H Pulse Oximetry 98 96 12/04/18 11:50 12/04/18 12:00 12/04/18 12:15 Temperature 98.2 F Pulse Rate 75 74 74 Respiratory Rate 15 18 18 Blood Pressure 136/65 159/74 H 148/72 H Pulse Oximetry 95 95 94 L 12/04/18 12:28 Temperature 98.8 F Pulse Rate 75 Respiratory Rate 19 Blood Pressure 148/72 H Pulse Oximetry 95 Intake & Output 12/03/18 12/04/18 12/04/18 18:59 06:59 18:59 Intake Total 1000 / 1000 1150 / 1150 500 / 500 Balance 1000 / 1000 1150 / 1150 500 / 500 Weight 79.2 kg Intake: IV 1000 / 1000 950 / 950 NS Inj 1,000 ML @ 84 mls/hr IV. 1000 / 1000 950 / 950 CONT .[id number] [facility] Rx#:[id number] Oral 200 / 200 Anesthesia Amount 500 / 500 Other: # Incontinent Voids 3 Date of Last Bowel Movement 12/03/18 12/03/18 # Incontinent Bowel Movements 2 Physical Exam: CONSTITUTIONAL/GENERAL: This is an elderly patient, in no apparent distress. TUBES/LINES/DRAINS: PIV SKIN: No jaundice, rashes, or lesions. Ecchymoses on upper extremities. Reported wounds to buttocks area. Normothermic. HEAD: Atraumatic. Normocephalic. EYES: Pupils reactive to light. No injection or drainage. Fundi not examined. ENT: Hearing grossly normal. Moist oral mucosa. NECK: Trachea midline. Supple, nontender. CARDIOVASCULAR: Regular rate and rhythm without murmurs, gallops, or rubs. No JVD. Peripheral pulses symmetric. RESPIRATORY/CHEST: Symmetric, unlabored respirations. Diminished breath sounds. No wheezes, rales, or rhonchi. GASTROINTESTINAL: Abdomen soft, non-tender, nondistended. No guarding. Bowel sounds present. GENITOURINARY: Without palpable bladder distension. MUSCULOSKELETAL: Extremities without clubbing, cyanosis, or edema. No mottling or clubbing. LYMPHATICS: Did not assess. NEUROLOGICAL: Awake, alert and oriented to self, place and situation. Follows commands with all 4 extremities. PSYCHIATRIC: No obvious anxiety/depression. no apparent hallucinations or other psychotic thought process. . Diagnostic Tests Laboratory: Laboratory Results - last 72 hr 12/02/18 12/02/18 12/02/18 06:44 06:44 19:10 WBC 2.4 L RBC 2.75 L Hgb 9.1 L Hct 27.9 L MCV 101.5 H MCH 33.0 MCHC 32.5 RDW 22.0 H Plt Count 237 MPV 7.2 Prelim Diff (Auto) Slide review pending Neut % (Auto) 84.3 H Lymph % (Auto) 10.8 [place] % (Auto) 2.2 Eos % (Auto) 1.8 Baso % (Auto) 0.9 Neut # (Auto) 2.1 Lymph # (Auto) 0.3 L [place] # (Auto) 0.1 Eos # (Auto) 0.0 Baso # (Auto) 0.0 WBC Differential . Diff Scan Auto diff confirmed Seg Neuts % (Manual) Band Neuts % (Manual) Lymphocytes % (Manual) Monocytes % (Manual) Eosinophils % (Manual) Basophils % (Manual) Myelocytes % (Man) Abs Neuts (Manual) Differential Comment . Platelet Estimate Platelet Morphology Dimorphic RBCs Tear Drop Cells Ovalocytes Stephan Cells Sodium 145 Potassium 2.8 L* 3.6 D Chloride 116 H Carbon Dioxide 20.5 L Anion Gap 9 BUN 3 L Creatinine 0.49 L Estimated GFR Greater than 89 Random Glucose 79 Calcium 7.4 L* Calcium Adj for Albumin 9.0 Magnesium 1.8 Albumin 2.0 L 12/03/18 12/03/18 12/04/18 07:30 07:30 05:35 WBC 1.3 L 1.6 L RBC 2.69 L 2.69 L Hgb 9.1 L 8.6 L Hct 27.4 L 27.2 L MCV 101.7 H 101.4 H MCH 33.9 32.2 MCHC 33.4 31.7 L RDW 21.8 H 22.6 H Plt Count 196 186 MPV 7.1 7.1 Prelim Diff (Auto) Manual diff required Slide review pending Neut % (Auto) 55.4 Lymph % (Auto) 26.2 [place] % (Auto) 6.2 Eos % (Auto) 10.7 H Baso % (Auto) 1.5 Neut # (Auto) 0.9 L Lymph # (Auto) 0.4 L [place] # (Auto) 0.1 Eos # (Auto) 0.2 Baso # (Auto) 0.0 WBC Differential Manual diff final Manual diff final Diff Scan Seg Neuts % (Manual) 65 62 Band Neuts % (Manual) 7 H 12 H Lymphocytes % (Manual) 18 13 Monocytes % (Manual) 6 7 Eosinophils % (Manual) 3 2 Basophils % (Manual) 1 1 Myelocytes % (Man) 3 H Abs Neuts (Manual) 0.9 L 1.2 L Differential Comment . . Platelet Estimate Normal Normal Platelet Morphology Normal Normal Dimorphic RBCs Present H Tear Drop Cells 1+ H Ovalocytes 1+ H 1+ H [place] Cells 1+ H Sodium 144 Potassium 3.7 Chloride 118 H Carbon Dioxide 20.4 L Anion Gap 6 BUN 2 L Creatinine 0.46 L Estimated GFR Greater than 89 Random Glucose 76 Calcium 7.4 L* Calcium Adj for Albumin 9.0 Magnesium 1.8 Albumin 2.0 L 12/04/18 05:35 WBC RBC Hgb Hct MCV MCH MCHC RDW Plt Count MPV Prelim Diff (Auto) Neut % (Auto) Lymph % (Auto) [place] % (Auto) Eos % (Auto) Baso % (Auto) Neut # (Auto) Lymph # (Auto) [place] # (Auto) Eos # (Auto) Baso # (Auto) WBC Differential Diff Scan Seg Neuts % (Manual) Band Neuts % (Manual) Lymphocytes % (Manual) Monocytes % (Manual) Eosinophils % (Manual) Basophils % (Manual) Myelocytes % (Man) Abs Neuts (Manual) Differential Comment Platelet Estimate Platelet Morphology Dimorphic RBCs Tear Drop Cells Ovalocytes Stephan Cells Sodium 143 Potassium 3.3 L Chloride 116 H Carbon Dioxide 20.3 L Anion Gap 7 BUN 2 L Creatinine 0.42 L Estimated GFR Greater than 89 Random Glucose 71 L Calcium 7.3 L* Calcium Adj for Albumin 9.0 Magnesium 1.7 Albumin 1.9 L Result Diagrams: 12/04/18 05:35 12/04/18 05:35 Microbiology: Microbiology 11/30/18 00:00 Cryptosporidium Antigen - Final Stool Negative - No Cryptosporicium antigen detected In selected cases of patients with a history of immunosuppression or foreign travel, a full ova and parasites examination may be desired. Contact the microbiology lab if full workup is indicated and subit another specimen for testing. Giardia Antigen (TAMMIE) - Final Negative - No Giardia Antigen detected In selected cases of patients with a history of immunosuppression or foreign travel, a full ova and parasites examination may be desired. Contact the microbiology lab if full workup is indicated and subit another specimen for testing. 11/28/18 18:39 Aerobic Blood Culture - Final Blood - Peripheral No growth in 5 days Anaerobic Blood Culture - Final No growth in 5 days 11/28/18 18:48 Aerobic Blood Culture - Final Blood - Peripheral Staphylococcus capitis-capitis Anaerobic Blood Culture - Final No growth in 5 days 11/30/18 00:00 Enteric Pathogens (PCR) - Final Stool 11/30/18 00:00 Stool for WBCs - Final Stool No WBC's seen Imaging: Head CT 11/28/18 17:30 CONCLUSION: 1. No acute findings in the brain. 2. Opacification or fluid in the sphenoid sinus. . Barium Swallow X-Ray 12/01/18 00:00 CONCLUSION: Limited barium swallow performed in lateral projection while sitting in chair demonstrates normal mucosal pattern to the esophagus, prompt passage of barium into the stomach, and some narrowing at the GE junction. Videofluoroscopic Swallow 12/01/18 00:00 CONCLUSION: No episodes of aspiration observed. Chest X-Ray 12/03/18 00:00 CONCLUSION: No acute cardiopulmonary disease. Resolution of previously identified left lower lobe density. Procedures: 12/04/18-EGD with dilatation of stricture. . Assessment and Plan - Disease Oriented Problem List (1) Pneumonia (2) NAVIN (acute kidney injury) (3) Anemia (4) Atrial fibrillation (5) Hypertension (6) Pressure ulcer - Symptom Scale (1) Pain Comment: History of inflammatory polyarthropathy, recent right femur fracture and left olecranon fracture. (2) Dysphagia 0-10 Scale: Unable to quantify Comment: c/o difficulty swallowing (3) Debility 0-10 Scale: Unable to quantify Comment: Progressive Pertinent Non-Medical Issues: Psychosocial: Patient is originally from [place]. Patient is . Patient had 3 adult children, 2 daughters and 1 son. 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 . Important Contacts: DPOA including healthcare -son-Jd Marr-[phone] Alternate DPOA including healthcare- daughter- Corazon Victoria-[phone] (Copy of advanced directives not made available but patient stated that her above-mentioned children are her medical decision makers when she is deemed incapacitated to participate in making medical decisions). Prognosis: Mrs Marr is a 78-year-old female with a medical history significant for atrial fibrillation on Eliquis, hypertension, chronic kidney disease stage III, gastroparesis, chronic pain, degenerative disc disease (lumbar radiculopathy status post lumbar fusion), inflammatory polyarthropathy, recent right femur fracture, left olecranon fracture s/p surgery, TIA, Clostridium difficile infection, urinary tract infection and hyperlipidemia. Patient was brought to the emergency room by EMS on 11/28/18 from a retirement facility for further evaluation of malaise, altered mentation and fatigue for the past 24 hours. Clinical course complicated with dysphagia, C. difficile infection, MRSA in wound, staph bacteremia and debility. Given typical ongoing comorbidities, and multiple hospitalizations, patient remains at high risk for further complications, deterioration and decline. Prognosis is guarded. . Code Status: Full Code Plan: PLAN: Legal decision maker: Patient is oriented to self, place and situation. She has insight regarding her medical condition. She is able to currently participate in making her own medical decisions. In the event that she is incapacitated patient stated that her son Jd Marr is her DURABLE POWER OF WORK MEASUREMENT ENGINEER including healthcare and her daughter Esme Chandra. Goals: Aggressive. Patient had a discussion with her daughter and son regarding CODE STATUS and she has decided to rescinded DNR status back to full code.Patient states that she would want everything done to keep your life in she has expressed her wishes to her children who will know when to stop aggressive treatment if patient is not showing improvement. Patient has a good understanding of what full code entails. Plan is for patient to be discharged back to retirement facility. CODE STATUS: Full code SYMPTOMS: * Pain: History of degenerative disc disease, inflammatory polyarthropathy, and recent right femur fracture and left olecranon fracture. Patient also has pressure ulcer to the buttock area. Denying pain during visit. No recommendations. * Dysphagia: Reported history of esophageal dilatation in the past. Patient came in complaining of difficulty with swallowing. Patient went for modified barium swallow evaluation today 12/01/18. She was noted to have mild oral phase and mild to moderate pharyngeal phase dysphagia. Patient underwent EGD with dilatation of stricture on 12/04/18. No further recommendations. * Debility: Progressive. Patient was recently hospitalized in July following a fall and he has been in rehab since July 2018. Patient reports that she has not yet started ambulating. Patient has been pretty much bed bound to wheelchair bound. Physical therapy consulted, recommending PT at rehab. Palliative care will continue to follow the patient during hospital course as condition evolves, to assist patient/decision-maker with understanding of their medical conditions, weighing benefits/burdens of treatment options, for clarification of goals of treatment. Additionally will assist with any symptoms of palliative concern Attestation Attestation: To help prompt me to consider important information that might be impacting today's encounter and assessment, information from prior notes written by myself or my colleagues may have been "brought forward" into today's note. My signature on this note, however, is an attestation that I personally performed the exam, history, and/or decision-making noted today, and, unless otherwise indicated, the interactions with patient, family, and staff as well as the review of records all occurred today. I also attest that the listed assessment and stated plan reflect my best clinical judgment today based on the combination of historical information, prior notes, and today's exam/ interactions. When time spent is documented, it refers only to time spent today by the signer, or if indicated, combined time spent today by collaborating physician/nurse practitioner.
[2018-12-04] MEDS: ALPRAZolam 0.5 MG Tablet PO SCH (20:29)
[2018-12-04] MEDS: Pregabalin 75 MG Capsule PO SCH (20:29)
[2018-12-05] MEDS: Propafenone 150 MG Tablet PO SCH (05:32)
[2018-12-05] MEDS: Sod Chloride 0.9% Inj 1,000 ML IV.CONT SCH (05:32)
[2018-12-05 08:42] VITALS: RESP 16
[2018-12-05] MEDS: predniSONE 5 MG Tablet PO SCH (09:00)
[2018-12-05] MEDS: Folic Acid 1 MG Tablet PO SCH (09:00)
[2018-12-05] MEDS: Metoprolol Tartrate 50 MG Tablet PO SCH (09:00)
[2018-12-05] MEDS: Gabapentin 100 MG Capsule PO SCH (09:00)
[2018-12-05] MEDS: Loratadine/Pseudoephedrine 12HR Tablet PO SCH (09:03)
[2018-12-05 10:49] VITALS: O2SAT 95
--- NOTE | 2018-12-05 11:35 | P.PNGI ---
Subjective Interval history: Patient semirecumbent in bed Completed breakfast meal without complaints of difficulty swallowing States plan is to discharge to residential facility today Physical Exam Vital signs: Vital Signs 12/04/18 11:50 12/04/18 12:00 12/04/18 12:15 Temperature 98.2 F Pulse Rate 75 74 74 Respiratory Rate 15 18 18 Blood Pressure 136/65 159/74 H 148/72 H Pulse Oximetry 95 95 94 L 12/04/18 12:28 12/04/18 16:00 12/04/18 20:00 Temperature 98.8 F 98.7 F 98.6 F Pulse Rate 75 75 89 Respiratory Rate 19 16 17 Blood Pressure 148/72 H 150/68 H 159/77 H Pulse Oximetry 95 100 96 12/05/18 00:00 12/05/18 08:00 12/05/18 10:49 Temperature 98.4 F 98.8 F Pulse Rate 84 85 Respiratory Rate 17 16 Blood Pressure 147/72 H 137/79 Pulse Oximetry 95 96 95 Intake & Output 12/04/18 12/05/18 12/05/18 18:59 06:59 18:59 Intake Total 1640 / 1640 1600 / 1600 Output Total 550 / 550 Balance 1090 / 1090 1600 / 1600 Weight 79.2 kg Intake: IV 1000 / 1000 1000 / 1000 NS Inj 1,000 ML @ 84 mls/hr IV. 1000 / 1000 1000 / 1000 CONT .[id number] [facility] Rx#:[id number] Oral 140 / 140 600 / 600 Anesthesia Amount 500 / 500 Output: Urine 550 / 550 Other: # Incontinent Voids 6 1 Date of Last Bowel Movement 12/04/18 12/04/18 12/05/18 # Bowel Movements 2 6 1 - Constitutional no acute distress, cooperative - Routine HEENT Exam Head: Present: normocephalic ENT: Present: mucous membranes moist - Routine Neck Exam Present: supple, trachea midline - Routine Respiratory Exam Absent: accessory muscle use - Routine Abdominal Exam Present: soft, normoactive bowel sounds. Absent: tenderness, distended - Routine Skin Exam Present: dry, warm - Routine Neurological Exam Present: alert - Urinary Catheter Management Indwelling Urethral Catheter Cath placed during this visit: yes Reason for continuing: Hourly intake/output Insertion date: 11/28/18 Insertion time: 19:06 Results - Labs CBC & Chem 7: 12/04/18 05:35 12/04/18 05:35 Microbiology 11/30/18 00:00 Stool Cryptosporidium Antigen - Final Negative - No Cryptosporicium antigen detected In selected cases of patients with a history of immunosuppression or foreign travel, a full ova and parasites examination may be desired. Contact the microbiology lab if full workup is indicated and subit another specimen for testing. 11/30/18 00:00 Stool Giardia Antigen (TAMMIE) - Final Negative - No Giardia Antigen detected In selected cases of patients with a history of immunosuppression or foreign travel, a full ova and parasites examination may be desired. Contact the microbiology lab if full workup is indicated and subit another specimen for testing. Assessment and Plan (1) Difficulty in swallowing Status: Acute Code(s): R13.10 - Dysphagia, unspecified (2) Dysphagia Status: Acute Code(s): R13.10 - Dysphagia, unspecified (3) C. difficile colitis Status: Acute Code(s): A04.72 - Enterocolitis due to Clostridium difficile, not specified as recurrent (4) Gastroparesis Status: Acute Code(s): K31.84 - Gastroparesis - Plan .Dysphagia Patient endorses 2-3 months onset of difficulty swallowing pills. Patient states symptoms include gagging and feeling as though medication is stuck in throat. Patient denies difficulty with solid foods or liquids. History of diabetes along with gastroparesis. Presently diagnosed positive for C. difficile toxin. Frequent loose brown stools reported by nursing staff. Of note, patient currently taking Eliquis twice daily for atrial fibrillation. 12/01/2018 Assessment C. difficile colitis Dysphagia Diabetes with gastroparesis On Eliquis for atrial fibrillation Modified barium swallow showed no aspiration. A modified barium swallow was performed with speech pathology. Patient was given a variety of liquids to swallow. On some of the swallows, there is pooling of contrast in the vallecula and piriform sinuses. On one episode, there was penetration into the upper airway, but the contrast does not extend below the vocal cords folds. CONCLUSION: No episodes of aspiration observed. Barium swallow revealed Limited barium swallow performed in lateral projection while sitting in chair demonstrates normal mucosal pattern to the esophagus, prompt passage of barium into the stomach, and some narrowing at the GE junction. 12/02/2018 C. difficile colitis Dysphagia Diabetes with gastroparesis On Eliquis for atrial fibrillation Hypokalemia potassium 2.8 Hemoglobin 9.1 hematocrit 27.9 platelets 237 12/03/2018, patient has decreased diarrhea stools today less than 5 and still has active treatment for C. difficile colitis. Patient notes decreased appetite with some nausea but no vomiting. Current WBC count mildly decreased with leukopenia 1.3, and hemoglobin 9.1. Patient chief complaint is some dysphasia even with liquids so discussed with her plan for EGD with dilation tomorrow. Patient agreed with the plan. Patient has some generalized weakness and fatigue, further recommendations to follow after procedure. Also discussed with her follow-up needed in the office and once she is feeling better plan for colonoscopy. Gastroparesis, discuss slow eating and 4-6 meals a day. Patient had initially been on azithromycin for her gastroparesis which could have contributed to her C. difficile colitis. 12/05/2018 C. difficile colitis-multiple stools per chart documentation. Questran, Dificid and vancomycin Dysphagia-post EGD with dilatation 12/04/2018 EGD revealed the following : White exudates consistent with candidiasis in the distal esophagus and mid esophagus There was a short stricture 33 cm from the incisors; Using a TTS-balloon the stricture was dilated up to 18mm Normal duodenal mucosa in the entire duodenum Retroflexed views revealed a hiatal hernia --(Diflucan 200 mg p.o. daily) Plan Cardiac diet as tolerated EGD as needed Diflucan Continue PPI C. difficile treatment unchanged Supportive care Further recommendations to follow This patient has been seen by myself and Dr. Mcgee and this note is written on his behalf - Attending Attestation Dr. Mcgee
[2018-12-05 13:21] VITALS: BP 171/79; PULSE 83; TEMP 98.2
--- NOTE | 2018-12-05 16:29 | ECG ---
Date Performed: 12/05/2018 Time Performed: 08:44:52 PTAGE: 78 years EKG: Sinus rhythm WITH FIRST DEGREE AV BLOCK Cannot exclude old inferior infarct. Since previous tracing, no significa nt change noted ABNORMAL ECG PREVIOUS TRACING : 11/28/2018 18.09 DOCTOR: Yash Mcclure Interpretating Date/Time 12/05/2018 16:27:23
== END 2018-12-05 14:27 | DRG 371 ==
LOC: NEPE 16:54 → NEDA 19:48 → N07 22:06
PROVIDERS: ADMIT Hospitalist; ATTEND Hospitalist
DX: M06.4 Inflammatory polyarthropathy; L89.322 Pressure ulcer of left buttock, stage 2; N18.3 Chronic kidney disease, stage 3 (moderate); K21.9 Gastro-esophageal reflux disease without esophagitis; B37.81 Candidal esophagitis; Z66 Do not resuscitate; Z88.7 Allergy status to serum and vaccine; E11.43 Type 2 diabetes mellitus with diabetic autonomic (poly)neuropathy; N17.9 Acute kidney failure, unspecified; Z79.01 Long term (current) use of anticoagulants; I48.91 Unspecified atrial fibrillation; Z88.1 Allergy status to other antibiotic agents; M19.90 Unspecified osteoarthritis, unspecified site; E86.0 Dehydration; I12.9 Hypertensive chronic kidney disease with stage 1 through stage 4 chronic kidney disease, or unspecified chronic kidney disease; L89.312 Pressure ulcer of right buttock, stage 2; E11.22 Type 2 diabetes mellitus with diabetic chronic kidney disease; A04.71 Enterocolitis due to Clostridium difficile, recurrent; Z86.73 Personal history of transient ischemic attack (TIA), and cerebral infarction without residual deficits; I95.9 Hypotension, unspecified; Z88.0 Allergy status to penicillin; E78.5 Hyperlipidemia, unspecified; D63.1 Anemia in chronic kidney disease; K22.2 Esophageal obstruction; J18.9 Pneumonia, unspecified organism; R63.0 Anorexia; Z98.1 Arthrodesis status; E87.6 Hypokalemia; K31.84 Gastroparesis; Y95 Nosocomial condition
CPT/HCPCS: 70450; 71010; 71045; 74230; 80048; 80053; 81001; 82040; 82550; 83605; 83735; 84132; 84443; 84484; 85025; 85610; 86403; 87040; 87070; 87077; 87147; 87186; 87205; 87324; 87328; 87329; 87449; 87493; 87506; 88305; 88312; 90760; 92526; 92610; 92611; 93005; 94150; 96360; 97110; 97162; 97530; 99285; C1726; C9113; G0195; G0196; J0330; J1956; J2405; J2704; J3370; J3480; J7030; J7040; J7050; J7506; J7512; P9612